=== PATIENT | male | born 1945 | race Caucasian/White ===

== ENCOUNTER → 2017-04-25 09:22 | Outpatient (CLI) | payer MEDICARE, SELFPAY ==
[2017-04-25 12:12] LABS: Absolute Neutrophil Count 1.6 X10^3/uL (2.0-7.7); Basophil% 2.7 % (0-1); Eosinophil# 0.37 X10^3/uL; Eosinophils% 9.8 % (0-5); Hematocrit 40.9 % (40-54); Lymphocyte % 26.5 % (19-41); Mean Corp Hgb Conc 31.8 g/gl (32-36); Mean Corpuscular Hgb 31.4 pg (27.0-32.0); Mean Corpuscular Volume 98.8 fL (80-94); Mean Platelet Vol. 11.8 fl (6.2-12.0); Monocyte# 0.68 X10^3/uL; Neutrophil # 1.61 X10^3/uL (2.7-7.7); Neutrophil % 42.7 % (47-70); Platelet Count 186 K/mm3 (150-450); RBC Distribution Width CV 14.2 % (11.6-14.6); RBC Distribution Width SD 49.5 fl (35.1-43.9); Red Blood Count 4.14 M/mm3 (4.6-6.2); White Blood Count 3.8 K/mm3 (4.4-11.0)
[2017-04-25 12:13] LABS: POSITIVE COUNT NO; POSITIVE DIFFERENTIAL NO; POSITIVE MORPHOLOGY NO
[2017-04-25 12:28] LABS: ALB/GLOB Ratio 0.9 RATIO (0.9-2.4); AST(SGOT) 18 U/L (15-37); Alanine Aminotransfer ALT/SGPT 23 U/L (16-61); Albumin, Serum 3.6 g/dL (3.2-5.0); Alkaline Phosphatase 60 U/L (45-117); Anion Gap 8 (5-15); BUN 17 mg/dL (7-18); BUN/Creat Ratio 17.8 RATIO (10-20); Calcium,Total 8.7 mg/dL (8.5-10.1); Chloride 107 mmol/L (98-107); Creatinine, Serum 0.96 mg/dL (0.70-1.30); EST Glomerular Filtration Rate 82 mL/min (>60); Est Glom Filt Rate - Afr Amer 100 mL/min (>60); Globulin 3.8 g/dL (2.2-4.2); Glucose 110 mg/dL (74-106); Protein, Total 7.4 g/dL (6.4-8.2); Sodium Level 141 mmol/L (136-145)
== END ==
PROVIDERS: Family Provider Family Medicine; PCP Family Medicine; Visit Provider Internal Medicine Rheumatology
DX: M06.09 Rheumatoid arthritis without rheumatoid factor, multiple sites (principal); M18.0 Bilateral primary osteoarthritis of first carpometacarpal joints; M21.40 Flat foot [pes planus] (acquired), unspecified foot; M79.7 Fibromyalgia; Z79.899 Other long term (current) drug therapy; Z85.46 Personal history of malignant neoplasm of prostate
CPT/HCPCS: 36415; 80053; 85025

== ENCOUNTER → 2017-07-23 08:14 | Outpatient (CLI) | payer MEDICARE, SELFPAY ==
--- NOTE | 2017-07-23 08:14 | DT_ITS ---
This patient was seen during an EMR downtime July 16, 2017 - July 23, 2017. This patient may have a combination of paper and electronic documentation or all paper documentation. All documentation is viewable within the e-chart portion of [facility] for each patient visit.
[2017-07-23 10:34] LABS: Absolute Lymphocyte Count 1.22 X10^3/ul (0.83-4.51); Absolute Neutrophil Count 2.7 X10^3/uL (2.0-7.7); Eosinophil# 0.28 X10^3/uL; Eosinophils% 5.6 % (0-5); Hematocrit 42.4 % (40-54); Hemoglobin 13.9 g/dl (13.0-16.5); Lymphocyte # 1.22 X10^3/ul (4.0); Lymphocyte % 24.3 % (19-41); Mean Corp Hgb Conc 32.8 g/gl (32-36); Mean Corpuscular Hgb 31.4 pg (27.0-32.0); Mean Corpuscular Volume 95.9 fL (80-94); Mean Platelet Vol. 11.1 fl (6.2-12.0); Monocyte# 0.68 X10^3/uL; Monocyte% 13.5 % (0-10); Neutrophil # 2.73 X10^3/uL (2.7-7.7); Neutrophil % 54.4 % (47-70); Platelet Count 278 K/mm3 (150-450); RBC Distribution Width SD 46.9 fl (35.1-43.9); Red Blood Count 4.42 M/mm3 (4.6-6.2)
[2017-07-23 10:35] LABS: POSITIVE COUNT NO; POSITIVE DIFFERENTIAL NO; POSITIVE MORPHOLOGY NO
[2017-07-23 10:47] LABS: ALB/GLOB Ratio 0.7 RATIO (0.9-2.4); AST(SGOT) 14 U/L (15-37); Alanine Aminotransfer ALT/SGPT 23 U/L (16-61); Albumin, Serum 3.3 g/dL (3.2-5.0); Alkaline Phosphatase 68 U/L (45-117); Anion Gap 7 (5-15); BUN 11 mg/dL (7-18); BUN/Creat Ratio 13.4 RATIO (10-20); Calcium,Total 8.8 mg/dL (8.5-10.1); Chloride 104 mmol/L (98-107); Creatinine, Serum 0.82 mg/dL (0.70-1.30); EST Glomerular Filtration Rate 98 mL/min (>60); Est Glom Filt Rate - Afr Amer 119 mL/min (>60); Globulin 4.5 g/dL (2.2-4.2); Glucose 97 mg/dL (74-106); Potassium 4.4 mmol/L (3.5-5.1); Protein, Total 7.8 g/dL (6.4-8.2); Sodium Level 138 mmol/L (136-145)
== END ==
PROVIDERS: Family Provider Family Medicine; PCP Family Medicine; Visit Provider Internal Medicine Rheumatology
DX: M06.09 Rheumatoid arthritis without rheumatoid factor, multiple sites (principal); Z79.899 Other long term (current) drug therapy; M79.7 Fibromyalgia; M18.0 Bilateral primary osteoarthritis of first carpometacarpal joints; M21.40 Flat foot [pes planus] (acquired), unspecified foot; Z85.46 Personal history of malignant neoplasm of prostate
CPT/HCPCS: 36415; 80053; 85025

== ENCOUNTER → 2017-10-19 14:07 | Outpatient (CLI) | payer MEDICARE, SELFPAY ==
[2017-10-19 15:59] LABS: Absolute Lymphocyte Count 0.94 X10^3/ul (0.83-4.51); Absolute Neutrophil Count 4.3 X10^3/uL (2.0-7.7); Basophil# 0.06 X10^3/uL; Eosinophil# 0.18 X10^3/uL; Eosinophils% 2.9 % (0-5); Hematocrit 42.5 % (40-54); Hemoglobin 13.8 g/dl (13.0-16.5); Lymphocyte # 0.94 X10^3/ul (4.0); Mean Corp Hgb Conc 32.5 g/gl (32-36); Mean Corpuscular Hgb 31.3 pg (27.0-32.0); Mean Corpuscular Volume 96.4 fL (80-94); Monocyte# 0.76 X10^3/uL; Monocyte% 12.1 % (0-10); Neutrophil # 4.33 X10^3/uL (2.7-7.7); Platelet Count 203 K/mm3 (150-450); RBC Distribution Width CV 14.8 % (11.6-14.6); RBC Distribution Width SD 50.2 fl (35.1-43.9); Red Blood Count 4.41 M/mm3 (4.6-6.2); White Blood Count 6.3 K/mm3 (4.4-11.0)
[2017-10-19 16:02] LABS: POSITIVE COUNT NO; POSITIVE DIFFERENTIAL NO; POSITIVE MORPHOLOGY NO
[2017-10-19 16:11] LABS: ALB/GLOB Ratio 0.9 RATIO (0.9-2.4); AST(SGOT) 22 U/L (15-37); Alanine Aminotransfer ALT/SGPT 28 U/L (16-61); Albumin, Serum 3.6 g/dL (3.2-5.0); Alkaline Phosphatase 44 U/L (45-117); Anion Gap 9 (5-15); BUN 20 mg/dL (7-18); BUN/Creat Ratio 18.3 RATIO (10-20); Calcium,Total 9.2 mg/dL (8.5-10.1); Chloride 107 mmol/L (98-107); Creatinine, Serum 1.09 mg/dL (0.70-1.30); EST Glomerular Filtration Rate 71 mL/min (>60); Est Glom Filt Rate - Afr Amer 85 mL/min (>60); Globulin 4.1 g/dL (2.2-4.2); Glucose 133 mg/dL (74-106); Potassium 4.3 mmol/L (3.5-5.1); Protein, Total 7.7 g/dL (6.4-8.2); Sodium Level 142 mmol/L (136-145)
== END ==
PROVIDERS: Family Provider Family Medicine; PCP Family Medicine; Visit Provider Internal Medicine Rheumatology
DX: M06.09 Rheumatoid arthritis without rheumatoid factor, multiple sites (principal); M18.0 Bilateral primary osteoarthritis of first carpometacarpal joints; M21.40 Flat foot [pes planus] (acquired), unspecified foot; M79.7 Fibromyalgia; Z79.899 Other long term (current) drug therapy; Z85.46 Personal history of malignant neoplasm of prostate; Z92.21 Personal history of antineoplastic chemotherapy; Z92.3 Personal history of irradiation
CPT/HCPCS: 36415; 80053; 85025

== ENCOUNTER → 2017-10-22 07:34 | Outpatient (CLI) | payer MEDICARE, SELFPAY ==
[2017-10-24 20:08] LABS: Red Blood Cell Count Test/G6PD 4.44 x10E6/uL (4.14-5.80)
[2017-10-25 08:24] LABS: G6PD Quant Test 311 (146-376)
== END ==
PROVIDERS: Family Provider Family Medicine; PCP Family Medicine; Visit Provider Internal Medicine Rheumatology
DX: M06.09 Rheumatoid arthritis without rheumatoid factor, multiple sites (principal); M79.7 Fibromyalgia; M18.0 Bilateral primary osteoarthritis of first carpometacarpal joints; M21.40 Flat foot [pes planus] (acquired), unspecified foot; Z79.899 Other long term (current) drug therapy; Z85.46 Personal history of malignant neoplasm of prostate
CPT/HCPCS: 36415; 82955

== ENCOUNTER → 2017-12-10 09:01 | Outpatient (CLI) | payer MEDICARE, SELFPAY ==
[2017-12-10 10:05] LABS: Absolute Lymphocyte Count 1.22 X10^3/ul (0.83-4.51); Absolute Neutrophil Count 3.4 X10^3/uL (2.0-7.7); Basophil# 0.08 X10^3/uL; Basophil% 1.4 % (0-1); Eosinophil# 0.28 X10^3/uL; Eosinophils% 4.9 % (0-5); Hematocrit 42.6 % (40-54); Hemoglobin 13.9 g/dl (13.0-16.5); Lymphocyte # 1.22 X10^3/ul (4.0); Lymphocyte % 21.3 % (19-41); Mean Corp Hgb Conc 32.6 g/gl (32-36); Mean Corpuscular Volume 98.2 fL (80-94); Mean Platelet Vol. 11.7 fl (6.2-12.0); Monocyte# 0.76 X10^3/uL; Monocyte% 13.2 % (0-10); Neutrophil # 3.39 X10^3/uL (2.7-7.7); Platelet Count 202 K/mm3 (150-450); RBC Distribution Width CV 14.3 % (11.6-14.6); RBC Distribution Width SD 49.9 fl (35.1-43.9); Red Blood Count 4.34 M/mm3 (4.6-6.2); White Blood Count 5.7 K/mm3 (4.4-11.0)
[2017-12-10 10:06] LABS: POSITIVE COUNT NO; POSITIVE DIFFERENTIAL NO; POSITIVE MORPHOLOGY NO
[2017-12-10 10:14] LABS: ALB/GLOB Ratio 0.7 RATIO (0.9-2.4); AST(SGOT) 13 U/L (15-37); Alanine Aminotransfer ALT/SGPT 24 U/L (16-61); Albumin, Serum 3.4 g/dL (3.2-5.0); Alkaline Phosphatase 45 U/L (45-117); Anion Gap 10 (5-15); BUN 17 mg/dL (7-18); BUN/Creat Ratio 17.3 RATIO (10-20); Calcium,Total 9.5 mg/dL (8.5-10.1); Chloride 104 mmol/L (98-107); Creatinine, Serum 0.98 mg/dL (0.70-1.30); EST Glomerular Filtration Rate 80 mL/min (>60); Est Glom Filt Rate - Afr Amer 96 mL/min (>60); Globulin 4.7 g/dL (2.2-4.2); Glucose 130 mg/dL (74-106); Potassium 4.2 mmol/L (3.5-5.1); Protein, Total 8.1 g/dL (6.4-8.2); Sodium Level 141 mmol/L (136-145)
== END ==
PROVIDERS: Family Provider Family Medicine; PCP Family Medicine; Referring Provider Internal Medicine Rheumatology; Visit Provider Internal Medicine Rheumatology
DX: M06.09 Rheumatoid arthritis without rheumatoid factor, multiple sites (principal); M79.7 Fibromyalgia; M18.0 Bilateral primary osteoarthritis of first carpometacarpal joints; M21.40 Flat foot [pes planus] (acquired), unspecified foot; Z79.899 Other long term (current) drug therapy; Z85.46 Personal history of malignant neoplasm of prostate
CPT/HCPCS: 36415; 80053; 85025

== ENCOUNTER → 2018-03-05 09:09 | Outpatient (CLI) | payer MEDICARE, SELFPAY ==
[2018-03-05 10:30] LABS: Absolute Lymphocyte Count 1.24 X10^3/ul (0.83-4.51); Basophil# 0.05 X10^3/uL; Basophil% 1.2 % (0-1); Eosinophil# 0.13 X10^3/uL; Eosinophils% 3.1 % (0-5); Hematocrit 41.2 % (40-54); Hemoglobin 12.8 g/dl (13.0-16.5); Lymphocyte # 1.24 X10^3/ul (4.0); Lymphocyte % 29.7 % (19-41); Mean Corp Hgb Conc 31.1 g/gl (32-36); Mean Corpuscular Hgb 31.2 pg (27.0-32.0); Mean Corpuscular Volume 100.5 fL (80-94); Mean Platelet Vol. 11.8 fl (6.2-12.0); Monocyte# 0.72 X10^3/uL; Monocyte% 17.2 % (0-10); Neutrophil # 2.03 X10^3/uL (2.7-7.7); Neutrophil % 48.6 % (47-70); Platelet Count 183 K/mm3 (150-450); RBC Distribution Width CV 14.3 % (11.6-14.6); RBC Distribution Width SD 51.9 fl (35.1-43.9); White Blood Count 4.2 K/mm3 (4.4-11.0)
[2018-03-05 10:32] LABS: POSITIVE COUNT NO; POSITIVE DIFFERENTIAL NO; POSITIVE MORPHOLOGY NO
[2018-03-05 10:36] LABS: ALB/GLOB Ratio 0.9 RATIO (0.9-2.4); AST(SGOT) 19 U/L (15-37); Alanine Aminotransfer ALT/SGPT 25 U/L (16-61); Albumin, Serum 3.6 g/dL (3.2-5.0); Alkaline Phosphatase 41 U/L (45-117); Anion Gap 6 (5-15); BUN 16 mg/dL (7-18); BUN/Creat Ratio 16.3 RATIO (10-20); Calcium,Total 8.3 mg/dL (8.5-10.1); Chloride 107 mmol/L (98-107); Creatinine, Serum 0.98 mg/dL (0.70-1.30); EST Glomerular Filtration Rate 80 mL/min (>60); Est Glom Filt Rate - Afr Amer 96 mL/min (>60); Glucose 110 mg/dL (74-106); Potassium 4.3 mmol/L (3.5-5.1); Protein, Total 7.6 g/dL (6.4-8.2); Sodium Level 139 mmol/L (136-145)
--- OUTSIDE RECORDS SUMMARY | 2018-05-07 09:34 | XMS RPT_ITS ---
:1945 Author Organization [facility] Care Team Providers Name Role Phone COOPER, TRISTAN Wellington Referring Unavailable MASCI, TRISTAN A Referring Unavailable MASCI, TRISTAN A Referring Unavailable MASCI, TRISTAN A Referring Unavailable MASCI, TRISTAN A Referring Unavailable MASCI, TRISTAN A Referring Unavailable MASCI, TRISTAN A Referring Unavailable MASCI, TRISTAN Wellington Attending Unavailable MASCI, TRISTAN A Referring Unavailable MASCI, TRISTAN A Referring Unavailable MASCI, TRISTAN Wellington Referring Unavailable JOE ARECHIGA (ARTHUR) Attending Unavailable PRIMITIVOWINSTON A Referring Unavailable MASCI, TRISTAN A Referring Unavailable PRIMITIVO, WINSTON A Referring Unavailable PRIMITIVO, WINSTON A Attending Unavailable PRIMITIVO, WINSTON A Referring Unavailable MASCI, TRISTAN A Referring Unavailable MASCI, TRISTAN A Attending Unavailable MASCI, TRISTAN A Referring Unavailable MASCI, TRISTAN A Referring Unavailable MASCI, TRISTAN A Referring Unavailable MASCI, TRISTAN A Referring Unavailable MASCI, TRISTAN A Referring Unavailable MASCI, TRISTAN A Attending Unavailable MASCI, TRISTAN A Referring Unavailable MASCI, TRISTAN A Referring Unavailable MASCI, TRISTAN A Referring Unavailable MASCI, TRISTAN A Referring Unavailable MASCI, TRISTAN A Referring Unavailable PRIMITIVO, WINSTON A Referring Unavailable Vellanki, Dina Attending Unavailable Vellanki, Dina Referring Unavailable [facility] Unavailable Vellanki, Dina Attending Unavailable [facility] Unavailable Vellanki, Dina Attending Unavailable Vellanki, Dina Referring Unavailable [facility] Unavailable Vellanki, Dina Attending Unavailable Vellanki, Dina Referring Unavailable [facility] Unavailable Vellanki, Dina Attending Unavailable Vellanki, Dina Referring Unavailable [facility] Unavailable Vellanki, Dina Attending Unavailable Vellanki, Dina Referring Unavailable [facility] Unavailable PROBLEMS PROBLEMS DATE TYPE CONDITION / CODE ATTENDING STATUS SOURCE 12/10/2017 Unknown M06.09 - Rheumatoid Sahil Dina Active [facility] arthritis without Community rheumatoid factor, [facility] multiple sites / Repository M06.09(ICD-10) 12/10/2017 Unknown Z79.899 - Other long Jonnathanlanleena Dina Active [facility] term (current) drug Community therapy / Hospital Z79.899(ICD-10) Repository 12/10/2017 Unknown M79.7 - Fibromyalgia Velscott Dina Active [place] / M79.7(ICD-10) [facility] Repository 12/10/2017 Unknown M18.0 - Bilateral Vellanleena Dina Active [facility] primary Community osteoarthritis of Hospital first carpometacarpal Repository joints / M18.0(ICD-10) 12/10/2017 Unknown M21.40 - Flat foot Sahil Dina Active [facility] [pes planus] Community (acquired), Hospital unspecified foot / Repository M21.40(ICD-10) 12/10/2017 Unknown Z85.46 - Personal Vellanleena Dina Active [facility] history of malignant Community neoplasm of prostate Hospital / Z85.46(ICD-10) Repository 02/20/2017 Active Impaired fasting Active [place] glucose / Clinic Main R73.01(ICD-10) [place] Repository 02/03/2016 Active Mixed hyperlipidemia NA Active [facility] [place] / E78.2(ICD-10) Clinic Main [place] Repository 03/14/2017 Active Unknown / NA Active [facility] UNK(Unknown) Clinic Main [place] Repository 02/20/2017 Active Malignant neoplasm of NA Active [place] prostate / Clinic Main C61(ICD-10) [place] Repository PROCEDURES PROCEDURES No Procedure Records FoundRESULTS RESULTS URINALYSIS WITH Collected: 03/06/2018 Status: F Source: [facility] 7:47 AM [facility] REPOSITORY TYPE CODE TESTS RESULT OUT OF REFERENCE UNITS RANGE LAB UCOL Yellow Color Yellow LAB [facility] Clear Clarity Clear LAB UGLUC Negative mg/dL Glucose, Urine Negative LAB UBIL Negative Bilirubin, Urine Negative LAB UKET Negative Ketones, Urine Negative LAB USPG 1.005-1.030 Specific [place], Ur 1.008 LAB UHGB Negative Hemoglobin/Blood, Negative Ur LAB UPH 4.5-8.0 pH 7.0 LAB UPROT Negative mg/dL Protein, Urine Negative LAB UUROB Normal Urobilinogen Normal LAB UNITR Negative Nitrites Negative LAB ULKEST Negative Leukest Negative LAB UCOM Comments SEE COMMENT Result Comment: N/A LAB UMCOM Urine SEE Jose Comment COMMENT Result Comment: N/A LAB UWBC 0-5 /HPF WBC 0-5 LAB URBC 0-3 /HPF RBC 0-3 Performed By: #### UAWMIC #### [facility] [address], [place] [address] HEMOGLOBIN A1C Collected: 03/06/2018 Status: F Source: [place] 7:46 AM [facility] REPOSITORY TYPE CODE TESTS RESULT OUT OF REFERENCE UNITS RANGE LAB HGBA1C 4.3-5.6 % Hemoglobin A1c 5.4 Result Comment: [place] Diabetes Association guidelines indicate that patients with HgbA1c in the range 5.7-6.4% are at increased risk for development of diabetes, and intervention by lifestyle modification may be beneficial. HgbA1c greater or equal to 6.5% is considered diagnostic of diabetes. LAB HBA0 mg/dL Est. Average Glucose 108 Result Comment: eAG: (Estimated average glucose) is a calculated value from HgbA1c and is group sales representative of the average blood glucose level in the last 2-3 month period. Performed By: #### HBA1C, LIPB #### [facility] [address], [place] [address] LIPID PANEL, BASIC Collected: 03/06/2018 Status: F Source: [place] 7:46 AM [facility] REPOSITORY TYPE CODE TESTS RESULT OUT OF REFERENCE UNITS RANGE LAB CHOL <200 mg/dL Cholesterol 174 Result Comment: <200 mg/dL, Desirable 200-239 mg/dL, Borderline high >239 mg/dL, High LAB TRIGLY <150 mg/dL Triglyceride 94 Result Comment: <150 mg/dL, Normal 150-199 mg/dL, Borderline high 200-499 mg/dL, High >499 mg/dL, Very high LAB HDL >39 mg/dL HDL-Cholesterol 57 Result Comment: 40-59 mg/dL, Acceptable >59 mg/dL, High: Negative risk factor for coronary heart disease <40 mg/dL, Low: Positive risk factor for coronary heart disease LAB LDL <100 mg/dL LDL-Cholesterol 98 Result Comment: <100 mg/dL, Optimal 100-129 mg/dL, Near optimal/above optimal 130-159 mg/dL, Borderline high 160-189 mg/dL, High >189 mg/dL, Very high Secondary prevention optimal LDL Cholesterol levels are recommended to be < 70 mg/dL LAB NONHDL <130 mg/dL Non HDL Cholesterol 117 Result Comment: <130 mg/dL, Optimal 130-159 mg/dL, Near optimal/above optimal 160-189 mg/dL, Borderline high 190-219 mg/dL, High >219 mg/dL, Very high Secondary prevention optimal non HDL Cholesterol levels are recommended to be < 100 mg/dL LAB FT hrs Fasting Time 12 LAB VLDL <30 mg/dL VLDL Cholesterol 19 LAB TCHDL <5.10 TC:HDL Ratio 3.05 LAB LDLHDL <2.54 LDL:HDL Ratio 1.72 Result Comment: Reference: 1. National Cholesterol Education Program ATP III Guideline At-A-Glance Quick Desk Reference: National Heart, Lung, and Blood [place]. National Institutes of Health. 2001: NIH Publication No. 01-3305. 2. An International Atherosclerosis Society position paper: global recommendations for the management of dyslipidemia: executive summary, Atherosclerosis. 2014: 232(2):410-413. Performed By: #### HBA1C, LIPB #### [facility] [address] [place] [address] COMP METABOLIC PANEL Collected: 03/06/2018 Status: F Source: [place] 7:45 AM [facility] REPOSITORY TYPE CODE TESTS RESULT OUT OF REFERENCE UNITS RANGE LAB TP 6.3-8.0 g/dL Protein, Total 7.0 LAB ALB 3.9-4.9 g/dL Albumin 4.0 LAB CA 8.5-10.2 mg/dL Calcium, Total 9.2 LAB TBIL 0.2-1.3 mg/dL Bilirubin, Total 0.4 LAB ALKP 38-113 U/L Alkaline Low Phosphatase 37 LAB AST 14-40 U/L AST 18 LAB GLU 74-99 mg/dL Glucose High 118 LAB BUN 9-24 mg/dL BUN 14 LAB CRET 0.73-1.22 mg/dL Creatinine 0.82 LAB NA 136-144 mmol/L Sodium 137 LAB K 3.7-5.1 mmol/L Potassium 4.3 LAB CL 97-105 mmol/L Chloride High 106 LAB CO2 22-30 mmol/L CO2 24 LAB AGAP 9-18 mmol/L Anion Gap Low 7 LAB ALT 10-54 U/L ALT 13 LAB GFRAA eGFR- >60 Amer. LAB GFRNAA . eGFR-All Other Races >60 Result Comment: eGFR (Estimated GFR) Units of measure: mL/min/1.73 meters squared eGFR is derived from the reexpressed MDRD Study equation using the following parameters: serum creatinine, age, gender and race. The creatinine assay has been calibrated to be traceable to IDMS. An eGFR <60 mL/min/1.73m2 for >3 months is consistent with chronic kidney disease. Refer to KDOQI guidelines for clinical interpretation. In patients with unstable renal function, e.g. those with acute kidney injury, the eGFR may not accurately reflect actual GFR. CBC W/DIFF, AUTOMATED Collected: 03/05/2018 Status: F Source: [place] 9:15 AM [facility] REPOSITORY TYPE CODE TESTS RESULT OUT OF RANGE REFERENCE UNITS LAB L100.1000 4.4-11.0 K/mm3 Low WBC 4.2 LAB L100.1200 4.6-6.2 M/mm3 Low RBC 4.10 LAB L100.1300 13.0-16.5 g/dl Low HGB 12.8 LAB L100.1400 40-54 % Normal HCT 41.2 LAB L100.1500 80-94 fL High MCV 100.5 LAB L100.1600 27.0-32.0 pg Normal MCH 31.2 LAB L100.1700 32-36 g/gl Low MCHC 31.1 LAB L100.1810 11.6-14.6 % Normal RDW CV 14.3 LAB L100.1820 35.1-43.9 fl High RDW SD 51.9 LAB L100.1900 150-450 K/mm3 Normal PLT 183 LAB L100.2000 6.2-12.0 fl Normal MPV 11.8 LAB L100.2100 47-70 % Normal NEUT% 48.6 LAB L100.2200 19-41 % Normal LY% 29.7 LAB L100.2300 0-10 % High MONO% 17.2 LAB L100.2400 0-5 % Normal EO% 3.1 LAB L100.2500 0-1 % High BASO% 1.2 LAB L100.2550 0.0-0.9 % Normal IM GRAN % 0.200 Result Comment: IG% - Immature Granulocytes (promyelocytes, myelocytes and metamyelocytes) > 1% indicates that a LEFT SHIFT is Present. LAB L100.2620 2.0-7.7 X10 3/uL Normal Absolute Neut 2.0 LAB L100.2720 0.83-4.51 X10 3/ul Normal Absolute Lymph 1.24 Performed By: #### L100.0100 #### [facility] [address] [place], [address] COMPREHENSIVE METABOLIC Collected: 03/05/2018 Status: F Source: [facility] 9:15 AM [facility] REPOSITORY TYPE CODE TESTS RESULT OUT OF RANGE REFERENCE UNITS LAB L501.0100 74-106 mg/dL High GLU 110 Result Comment: Fasting Glucose result from 100 to 125 mg/dL suggests IMPAIRED HOMEOSTASIS per A.D.A. criteria. Please note revised GLUCOSE reference range effective 2017. LAB L501.1000 7-18 mg/dL Normal BUN 16 LAB L501.1100 0.70-1.30 mg/dL Normal CREAT,SERUM 0.98 Result Comment: The validity of the calculated GFR AND GFRAA in patients over 70 years has not been determined. Clinical correlation is essential. LAB L501.1110 >60 mL/min Normal EST GFR 80 Result Comment: Non- GFR Calc LAB L501.1115 >60 mL/min Normal EST GFR - AA 96 Result Comment: GFR Calc LAB L501.1300 10-20 RATIO Normal BUN/CRE 16.3 LAB L501.1500 6.4-8.2 g/dL T Normal PROT 7.6 LAB L501.1800 3.2-5.0 g/dL Normal ALB 3.6 LAB L501.1950 2.2-4.2 g/dL Normal GLOB 4.0 LAB L501.2000 0.9-2.4 RATIO Normal A/G 0.9 LAB L501.2200 8.5-10.1 mg/dL Low CA 8.3 LAB L501.4100 15-37 U/L Normal AST 19 Result Comment: Slight Hemolysis, Result may be falsely increased. LAB L501.4305 45-117 U/L Low ALK P 41 LAB L501.4405 16-61 U/L Normal ALT 25 LAB L501.4600 0.20-1.00 mg/dL Normal T BILI 0.40 LAB L501.5300 136-145 mmol/L Normal NA 139 LAB L501.5600 3.5-5.1 mmol/L Normal K 4.3 Result Comment: Slight Hemolysis, Result may be falsely increased. LAB L501.5900 98-107 mmol/L Normal CL 107 LAB L501.6100 21.0-32.0 mmol/L Normal CO2 26.0 LAB L501.6200 5-15 Normal 6 GAP Performed By: #### L500.4050 #### [facility] [address] [place], [address] CBC W/DIFF, AUTOMATED Collected: 12/10/2017 Status: F Source: [place] 9:07 AM [facility] REPOSITORY TYPE CODE TESTS RESULT OUT OF RANGE REFERENCE UNITS LAB L100.1000 4.4-11.0 K/mm3 Normal WBC 5.7 LAB L100.1200 4.6-6.2 M/mm3 Low RBC 4.34 LAB L100.1300 13.0-16.5 g/dl Normal HGB 13.9 LAB L100.1400 40-54 % Normal HCT 42.6 LAB L100.1500 80-94 fL High MCV 98.2 LAB L100.1600 27.0-32.0 pg Normal MCH 32.0 LAB L100.1700 32-36 g/gl Normal MCHC 32.6 LAB L100.1810 11.6-14.6 % Normal RDW CV 14.3 LAB L100.1820 35.1-43.9 fl High RDW SD 49.9 LAB L100.1900 150-450 K/mm3 Normal PLT 202 LAB L100.2000 6.2-12.0 fl Normal MPV 11.7 LAB L100.2100 47-70 % Normal NEUT% 59.0 LAB L100.2200 19-41 % Normal LY% 21.3 LAB L100.2300 0-10 % High MONO% 13.2 LAB L100.2400 0-5 % Normal EO% 4.9 LAB L100.2500 0-1 % High BASO% 1.4 LAB L100.2550 0.0-0.9 % Normal IM GRAN % 0.200 Result Comment: IG% - Immature Granulocytes (promyelocytes, myelocytes and metamyelocytes) > 1% indicates that a LEFT SHIFT is Present. LAB L100.2620 2.0-7.7 X10 3/uL Normal Absolute Neut 3.4 LAB L100.2720 0.83-4.51 X10 3/ul Normal Absolute Lymph 1.22 Performed By: #### L100.0100 #### [facility] [address] [place], [address] COMPREHENSIVE METABOLIC Collected: 12/10/2017 Status: F Source: [facility] 9:07 AM [facility] REPOSITORY TYPE CODE TESTS RESULT OUT OF RANGE REFERENCE UNITS LAB L501.0100 74-106 mg/dL High GLU 130 Result Comment: Fasting Glucose result greater than or equal to 126 mg/dL suggests DIABETES MELLITUS per A.D.A. criteria. Please note revised GLUCOSE reference range effective 2017. LAB L501.1000 7-18 mg/dL Normal BUN 17 LAB L501.1100 0.70-1.30 mg/dL Normal CREAT,SERUM 0.98 Result Comment: The validity of the calculated GFR AND GFRAA in patients over 70 years has not been determined. Clinical correlation is essential. LAB L501.1110 >60 mL/min Normal EST GFR 80 Result Comment: Non- GFR Calc LAB L501.1115 >60 mL/min Normal EST GFR - AA 96 Result Comment: GFR Calc LAB L501.1300 10-20 RATIO Normal BUN/CRE 17.3 LAB L501.1500 6.4-8.2 g/dL T Normal PROT 8.1 LAB L501.1800 3.2-5.0 g/dL Normal ALB 3.4 LAB L501.1950 2.2-4.2 g/dL High GLOB 4.7 LAB L501.2000 0.9-2.4 RATIO Low A/G 0.7 LAB L501.2200 8.5-10.1 mg/dL CA Normal 9.5 LAB L501.4100 15-37 U/L Low AST 13 LAB L501.4305 45-117 U/L Normal ALK P 45 LAB L501.4405 16-61 U/L Normal ALT 24 LAB L501.4600 0.20-1.00 mg/dL T Normal BILI 0.50 LAB L501.5300 136-145 mmol/L NA Normal 141 LAB L501.5600 3.5-5.1 mmol/L K Normal 4.2 LAB L501.5900 98-107 mmol/L CL Normal 104 LAB L501.6100 21.0-32.0 mmol/L Normal CO2 27.0 LAB L501.6200 5-15 Normal GAP 10 Performed By: #### L500.4050 #### [facility] [address] [facility] [place], [address] PROGRESS Observed: 11/21/2017 Status: COMPLETED Source: [place] 10:51 AM [facility] REPOSITORY O ID: [id number] Author: Tristan Santos Service: (none) Author Type: Physician Type: Progress Notes Filed: 11/21/2017 11:19 AM Note Text: Diagnosis: 1) Prostate cancer HPI: The patient is a 72 yo male who had an abnormal HANNAH done on a routine PE by his PCP in 2008. Was referred to a urologist who performed biopsy. Pathology significant for Dimitris score 5+4 on the right and 3+3 on the left. PSA was 5.5 ng/ml. He was referred to [facility] and enrolled in the [facility] (31298; PUNCH) trial. Received 6 cycles neoadjuvant docetaxel along with GnRH therapy. Completed the 6 cycles with dose reduction after first cycle due to a flare of FM pain in legs. Underwent robotic radical prostatectomy on 06/29/2009. Pathology revealed Henderson 3+5 adenocarcinoma involving 8% of the gland b/l; multifocal extraprostatic extension and seminal vesical involvement. Margins were negative and nodes negative (pT3bN0). Had PSA<0.01 12/2009-09/2010. Most recent evaluation at [facility] prior to transfer here 0.04 ng/ml. CT and bone scan indicated no radiographic evidence metastatic disease. Then went on to complete salvage RT 06/29/2014. PSA showed an increased just prior to establishing care here. Current therapy: 1) GnRH injection (Zoladex). Presents for ongoing oncologic management. Interim history: Was changed to Lupron due to formulary change last fall. Didn't tolerate well--lethargy and mood change. Rotated back to Zoladex monthly in 02/2017. No dysuria, frequency. Rare nocturia. Has occasional stress incontinence. He offers no complaints today. When conducting review of systems he said that his fibromyalgia pain hasn't been as bad the last couple months but his arthritis pain has flared. Mostly this affects the hands. His energy level is doing well. He has hot flashes particularly in the evenings but he is not woken by hot flashes during the night. No breast tenderness. His appetite is normal and he does his best to watch his calorie intake but he has put on a little weight. PMH, medications and allergies as below personally reviewed by me today. Any changes documented in appropriate section. ROS: Constitutional: Denies episodes of fever and night sweats. Neuro: Denies JIMENES, vertigo and imbalance. No symptoms of neuropathy. HEENT: No recent change in voice, vision or hearing. Resp: Denies cough, wheeze and hemoptysis. No shortness of breath at rest. No MEYER. CVS: Denies exertional chest pain, PND, orthopnea and LE edema. GI: Denies reflux, n/v, change in bowel habits and abdominal pain. No symptoms of stomatitis. : See above. Endo: See above. Derm: No rash. MS: See above. Heme: No unusual bleeding or bruising. Psych: Normal mood. PHYSICAL EXAM: Vitals: Blood pressure 119/71, pulse 75, temperature 36.6 ?C (97.9 ?F), temperature source Temporal Artery, weight 112.3 kg (247 lb 8 oz). Well-appearing and in no acute distress. EYES: Sclerae are anicteric bilaterally. NECK: Supple. No enlargement of thyroid. LYMPHATIC: There is no palpable cervical, supraclavicular or axillary adenopathy. RESPIRATORY: Inspiratory breath sounds are of normal intensity in all edouard. No rales, wheezes or rhonchi. CARDIOVASCULAR: Rhythm is regular. Normal intensity S1/S2. There is no gallop or murmur. ABDOMEN: The abdomen is nondistended. There is no organomegaly. No tenderness. Extremities: Free of edema. SKIN: No jaundice or rash. No petechiae. NEUROLOGIC: supervisor fitting II-XII are grossly intact. No focal motor weakness. ASSESSMENT/PLAN: 1) High risk prostate cancer. Rising PSA following neoadjuvant ADT/Taxotere on clinical trial at [facility]. s/p salvage radiation. No concerning symptoms or exam findings. -Tolerating and responding well to GnRH therapy. -May be good candidate for for Xtandi or apalutamide if has biochemical failure without radiographic evidence of disease. Plan: -Monitor PSA every 3 months. -Monthly Zoladex. -Prolia q 6 months. -Flu shot administered today. Tristan Santos DO CNOVSP Observed: 11/21/2017 Status: COMPLETED Source: [place] 10:30 AM [facility] REPOSITORY Visit (SP) Office ([place]) LORNA MARTINS ([id number]) 1945 M [facility] Date Time Provider Department 11/21/17 10:30 AM TRISTAN SANTOS During your visit today, we recorded the following information about you: Temperature Pulse Blood pressure Weight 97.9 degrees 75/minute 119/71 112.3 kg Nayeli Bills LPN 11/21/2017 11:08 AM Signed Est patient. Three month office visit. Discuss recent labs. Zoladex today. Influenza Vaccine Documentation: ? Patient is identified by name and date of : Yes ? Patient is older than 6 months of age: Yes ? Patient denies a severe allergy to any vaccine component or to a previous dose of influenza vaccine: Yes FOR EGG ALLERGY CONCERNS, REFER TO PROVIDER. ? Denies allergy to gelatin, formaldehyde, thimerosol :Yes ? Patient is afebrile and not moderately or severely ill: Yes ? Does the patient have a history of Guillain ?Pony Syndrome (a severe paralytic illness): No ? Denies bone marrow transplant prior 6 months or solid organ transplant prior 3 months: Yes ? Denies a history of fainting after a prior injection or medical procedure? Yes If patient has fainted in the past, the CDC recommends sitting or lying down for 15 minutes after the vaccination. ? VIS sheet provided: Yes ? See Immunization Form in [facility] for details of immunizations administered today. If patient reports dizziness, vision changes or ringing in the ears post vaccination ? please have patient sit or lie down for 15 minutes. Influenza vaccine injection administered right deltoid, tolerated well, no immediate adverse reactions noted. Zoladex injection administered RLQ, tolerated well, no immediate adverse reactions noted. Nayeli Santos DO 11/21/2017 11:19 AM Signed Diagnosis: 1) Prostate cancer HPI: The patient is a 72 yo male who had an abnormal HANNAH done on a routine PE by his PCP in 2008. Was referred to a urologist who performed biopsy. Pathology significant for Dimitris score 5+4 on the right and 3+3 on the left. PSA was 5.5 ng/ml. He was referred to [facility] and enrolled in the [facility] ([id number]; PUNCH) trial. Received 6 cycles neoadjuvant docetaxel along with GnRH therapy. Completed the 6 cycles with dose reduction after first cycle due to a flare of FM pain in legs. Underwent robotic radical prostatectomy on 06/29/2009. Pathology revealed Dimitris 3+5 adenocarcinoma involving 8% of the gland b/l; multifocal extraprostatic extension and seminal vesical involvement. Margins were negative and nodes negative (pT3bN0). Had PSA<0.01 12/2009-09/2010. Most recent evaluation at [facility] prior to transfer here 0.04 ng/ml. CT and bone scan indicated no radiographic evidence metastatic disease. Then went on to complete salvage RT 06/29/2014. PSA showed an increased just prior to establishing care here. Current therapy: 1) GnRH injection (Zoladex). Presents for ongoing oncologic management. Interim history: Was changed to Lupron due to formulary change last fall. Didn't tolerate well--lethargy and mood change. Rotated back to Zoladex monthly in 02/2017. No dysuria, frequency. Rare nocturia. Has occasional stress incontinence. He offers no complaints today. When conducting review of systems he said that his fibromyalgia pain hasn't been as bad the last couple months but his arthritis pain has flared. Mostly this affects the hands. His energy level is doing well. He has hot flashes particularly in the evenings but he is not woken by hot flashes during the night. No breast tenderness. His appetite is normal and he does his best to watch his calorie intake but he has put on a little weight. PMH, medications and allergies as below personally reviewed by me today. Any changes documented in appropriate section. ROS: Constitutional: Denies episodes of fever and night sweats. Neuro: Denies JIMENES, vertigo and imbalance. No symptoms of neuropathy. HEENT: No recent change in voice, vision or hearing. Resp: Denies cough, wheeze and hemoptysis. No shortness of breath at rest. No MEYER. CVS: Denies exertional chest pain, PND, orthopnea and LE edema. GI: Denies reflux, n/v, change in bowel habits and abdominal pain. No symptoms of stomatitis. : See above. Endo: See above. Derm: No rash. MS: See above. Heme: No unusual bleeding or bruising. Psych: Normal mood. PHYSICAL EXAM: Vitals: Blood pressure 119/71, pulse 75, temperature 36.6 ?C (97.9 ?F), temperature source Temporal Artery, weight 112.3 kg (247 lb 8 oz). Well-appearing and in no acute distress. EYES: Sclerae are anicteric bilaterally. NECK: Supple. No enlargement of thyroid. LYMPHATIC: There is no palpable cervical, supraclavicular or axillary adenopathy. RESPIRATORY: Inspiratory breath sounds are of normal intensity in all edouard. No rales, wheezes or rhonchi. CARDIOVASCULAR: Rhythm is regular. Normal intensity S1/S2. There is no gallop or murmur. ABDOMEN: The abdomen is nondistended. There is no organomegaly. No tenderness. Extremities: Free of edema. SKIN: No jaundice or rash. No petechiae. NEUROLOGIC: supervisor fitting II-XII are grossly intact. No focal motor weakness. ASSESSMENT/PLAN: 1) High risk prostate cancer. Rising PSA following neoadjuvant ADT/Taxotere on clinical trial at [facility]. s/p salvage radiation. No concerning symptoms or exam findings. -Tolerating and responding well to GnRH therapy. -May be good candidate for for Xtandi or apalutamide if has biochemical failure without radiographic evidence of disease. Plan: -Monitor PSA every 3 months. -Monthly Zoladex. -Prolia q 6 months. -Flu shot administered today. Tristan Santos DO Referring Provider: TRISTAN SANTOS [[id number]] Allergies As of Date: 11/21/2017 Noted Allergy Reaction PENICILLINS 08/17/2006 4 - Hives Date Reviewed: 11/21/2017 Reviewed by: Nayeli Bills LPN - Fully Assessed Reason for Visit: Established Patient [175] Primary Visit Diagnosis:Malignant neoplasm of prostate (HCC) [C61] Other Visit Diagnosis:Need for vaccination [Z23] Order(s):[] influenza vaccine 180 mcg (Patients 65 years and older) (PF) (FLUZONE HIGH DOSE )Disp: Rfl: TREATMENT PARAMETER-NOT NEEDED [[id number]] Order #: [id number]: 1 HEMONC NURSING COMMUNICATION [[id number]] Order #: [id number]: 1 STANDING HEMONC NURSING COMMUNICATION [[id number]] Order #: [id number]: 1 STANDING HEMONC NURSING COMMUNICATION [[id number]] Order #: [id number]: 1 STANDING [] goserelin 3.6 mg injection (ZOLADEX)Disp: Rfl: NaCl 0.9% iv infusionDisp: Rfl: diphenhydrAMINE 50 mg injection (BENADRYL)Disp: Rfl: hydrocortisone sodium succinate (PF) 100 mg injection (Solu-CORTEF)Disp: Rfl: EPINEPHrine 1 mg/mL (1 mL) 0.3 mg injectionDisp: Rfl: Follow-up and Disposition History Recorded Prescriptions as of 11/21/2017 Sig: GABAPENTIN 300 MG CAPSULE TAKE 1 CAPSULE AT BEDTIME. HYDROXYCHLOROQUINE 200 MG TAB* Take 1 tablet by mouth twice * METHOTREXATE SODIUM 2.5 MG TA* Take 8 tablets by mouth once * CHOLECALCIFEROL (VITAMIN D3) * Take 1 capsule by mouth once * FOLIC ACID 1 MG TABLET Take 2 mg by mouth once daily. OMEGA 0-BCL-TDY-FISH OIL 1,00* Take 1 g by mouth once daily. MELOXICAM 15 MG TABLET Take 1 tablet by mouth once d* CORICIDIN HBP ORAL Take by mouth as needed. GLUCOSAMINE-CHONDROITIN 750 M* Take 2 tablets by mouth once * ACETAMINOPHEN ER 650 MG TABLE* Take 1,300 mg by mouth every * PREDNISONE 10 MG TABLET Prn SALUD'S WORT 300 MG CAPSULE Take 300 mg by mouth three ti* Patient not taking: Reported on 10/24/2017 FLUTICASONE 50 MCG/ACTUATION * Use 1 [place] in each nostril o* Patient not taking: Reported on 10/24/2017 Problem List As Of Date 11/21/2017 Noted Resolved Hallux valgus (acquired) [M20.10] INVALID FOR* Priority: M Ventral hernia, unspecified, without mention of*INVALID FOR* Priority: C Mixed hyperlipidemia [E78.2] Priority: A Malignant neoplasm of prostate (HCC) [C61] Priority: B More... Irregular heart beat [I49.9] Priority: A More... Well adult exam [Z00.00] INVALID FOR* Priority: E More... Fibromyalgia [M79.7] INVALID FOR* Priority: B Agitation [R45.1] INVALID FOR* Priority: A Generalized OA [M15.9] INVALID FOR* Priority: M More... 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 Medicare annual wellness visit, subsequent [Z00*INVALID FOR* Priority: E More... Elevated fasting blood sugar [R73.01] INVALID FOR* Priority: A Visit Notes: >> Nayeli Negar CARPENTER SunNov 21, 2017 10:20 AM Status: Signed Est patient. Three month office visit. Discuss recent labs. Zoladex today. Influenza Vaccine Documentation: ? Patient is identified by name and date of : Yes ? Patient is older than 6 months of age: Yes ? Patient denies a severe allergy to any vaccine component or to a previous dose of influenza vaccine: Yes FOR EGG ALLERGY CONCERNS, REFER TO PROVIDER. ? Denies allergy to gelatin, formaldehyde, thimerosol :Yes ? Patient is afebrile and not moderately or severely ill: Yes ? Does the patient have a history of Guillain ?Pony Syndrome (a severe paralytic illness): No ? Denies bone marrow transplant prior 6 months or solid organ transplant prior 3 months: Yes ? Denies a history of fainting after a prior injection or medical procedure? Yes If patient has fainted in the past, the CDC recommends sitting or lying down for 15 minutes after the vaccination. ? VIS sheet provided: Yes ? [facility] for details of immunizations administered today. If patient reports dizziness, vision changes or ringing in the ears post vaccination ? please have patient sit or lie down for 15 minutes. Influenza vaccine injection administered right deltoid, tolerated well, no immediate adverse reactions noted. Zoladex injection administered RLQ, tolerated well, no immediate adverse reactions noted. Nayeli Bills LPN Encounter Status:Closed by TRISTAN SANTOS DO on 11/21/17 PSA, DIAGNOSTIC Collected: 11/16/2017 Status: F Source: [place] 8:49 AM [facility] REPOSITORY TYPE CODE TESTS RESULT OUT OF REFERENCE UNITS RANGE LAB PSA 0.00-2.59 ng/mL PSA, Diagnostic <0.03 Result Comment: Total PSA test methodology used is the Electrochemiluminescence Immunoassay. For an individual patient, the significance of a PSA level should be interpreted in a broad clinical context, including age, race, family history, digital rectal exam, prostate size, results of prior te sting (prostate biopsy, free PSA, PCA3), and use of 5-alpha reductase inhibitors. Considering the high incidence of asymptomatic cancer in the general population that may not pose an ultimate risk to a patient, the decision to recommend urological evaluation or prostate biopsy should be individualized after consideration of all these factors. REFERENCE: Nayla George M.D., M.P.H., Caleb Adam M.D., Ph.D., Cristobal Gavin M.D., Ada Cadena, M.P.H., Lorena Ibarra Sc.D. Effect of Verification Bias on Screening for Prostate Cancer by Measurement of Prostatic Specific Antigen. N Engl J Med 2003,349:335-42. Performed By: #### PSA #### [facility] [address], [place] [address] G6PD QUANT Collected: 10/22/2017 Status: F Source: [place] 7:41 AM [facility] REPOSITORY TYPE CODE TESTS RESULT OUT OF RANGE REFERENCE UNITS LAB L3300.1920 4.14-5.80 x10E6/uL Normal RBC COUNT 4.44 LAB L3300.1930 146-376 Normal G6PD 311 QUANT test Result Comment: Result Units: U/10E12 RBC When decreased, G-6-PD, Quant. values are associated with acute hemolytic anemia when deficient individuals are exposed to oxidative stress, such as with certain medications (e.g., primaquine), infection, or ingestion of gabriel beans. Caution: In patients with acute hemolysis (e.g., abnormally low RBC values), testing for G-6-PD may be falsely normal because older erythrocytes with a higher enzyme deficiency have been hemolyzed. Young erythrocytes and reticulocytes have normal or near-normal enzyme activity. Normal values of G-6-PD may be measured for several weeks following a hemolytic event. Performed at: - [facility] [address] [id number] Warehouse Supervisor: Marvin Bahena PhD, Phone: [phone] Performed at: [facility] [address] [id number] Warehouse Supervisor: Cristobal Marte MD, Phone: [phone] Performed By: #### L3300.1900 #### [facility] (refer to report for specific site) refer to report for address and phone number CBC W/DIFF, AUTOMATED Collected: 10/19/2017 Status: F Source: [place] 2:11 PM [facility] REPOSITORY TYPE CODE TESTS RESULT OUT OF RANGE REFERENCE UNITS LAB L100.1000 4.4-11.0 K/mm3 Normal WBC 6.3 LAB L100.1200 4.6-6.2 M/mm3 Low RBC 4.41 LAB L100.1300 13.0-16.5 g/dl Normal HGB 13.8 LAB L100.1400 40-54 % Normal HCT 42.5 LAB L100.1500 80-94 fL High MCV 96.4 LAB L100.1600 27.0-32.0 pg Normal MCH 31.3 LAB L100.1700 32-36 g/gl Normal MCHC 32.5 LAB L100.1810 11.6-14.6 % High RDW CV 14.8 LAB L100.1820 35.1-43.9 fl High RDW SD 50.2 LAB L100.1900 150-450 K/mm3 Normal PLT 203 LAB L100.2000 6.2-12.0 fl Normal MPV 12.0 LAB L100.2100 47-70 % Normal NEUT% 69.0 LAB L100.2200 19-41 % Low LY% 15.0 LAB L100.2300 0-10 % High MONO% 12.1 LAB L100.2400 0-5 % Normal EO% 2.9 LAB L100.2500 0-1 % Normal BASO% 1.0 LAB L100.2550 0.0-0.9 % Normal IM GRAN % 0.000 Result Comment: IG% - Immature Granulocytes (promyelocytes, myelocytes and metamyelocytes) > 1% indicates that a LEFT SHIFT is Present. LAB L100.2620 2.0-7.7 X10 3/uL Normal Absolute Neut 4.3 LAB L100.2720 0.83-4.51 X10 3/ul Normal Absolute Lymph 0.94 Performed By: #### L100.0100 #### [facility] [address] [place], [place], [address] COMPREHENSIVE METABOLIC Collected: 10/19/2017 Status: F Source: [facility] 2:11 PM [facility] REPOSITORY TYPE CODE TESTS RESULT OUT OF RANGE REFERENCE UNITS LAB L501.0100 74-106 mg/dL High GLU 133 Result Comment: Fasting Glucose result greater than or equal to 126 mg/dL suggests DIABETES MELLITUS per A.D.A. criteria. Please note revised GLUCOSE reference range effective 2017. LAB L501.1000 7-18 mg/dL High BUN 20 LAB L501.1100 0.70-1.30 mg/dL Normal CREAT,SERUM 1.09 Result Comment: The validity of the calculated GFR AND GFRAA in patients over 70 years has not been determined. Clinical correlation is essential. LAB L501.1110 >60 mL/min Normal EST GFR 71 Result Comment: Non- GFR Calc LAB L501.1115 >60 mL/min Normal EST GFR - AA 85 Result Comment: GFR Calc LAB L501.1300 10-20 RATIO Normal BUN/CRE 18.3 LAB L501.1500 6.4-8.2 g/dL T Normal PROT 7.7 LAB L501.1800 3.2-5.0 g/dL Normal ALB 3.6 LAB L501.1950 2.2-4.2 g/dL Normal GLOB 4.1 LAB L501.2000 0.9-2.4 RATIO Normal A/G 0.9 LAB L501.2200 8.5-10.1 mg/dL CA Normal 9.2 LAB L501.4100 15-37 U/L Normal AST 22 LAB L501.4305 45-117 U/L Low ALK P 44 LAB L501.4405 16-61 U/L Normal ALT 28 LAB L501.4600 0.20-1.00 mg/dL T Normal BILI 0.30 LAB L501.5300 136-145 mmol/L NA Normal 142 LAB L501.5600 3.5-5.1 mmol/L K Normal 4.3 LAB L501.5900 98-107 mmol/L CL Normal 107 LAB L501.6100 21.0-32.0 mmol/L Normal CO2 26.0 LAB L501.6200 5-15 Normal GAP 9 Performed By: #### L500.4050 #### [facility] [address] [address] [place], [address] PROGRESS Observed: 08/29/2017 Status: COMPLETED Source: [place] 11:04 AM [facility] REPOSITORY HNO ID: [id number] Author: Tristan Santos Service: (none) Author Type: Physician Type: Progress Notes Filed: 08/29/2017 11:31 AM Note Text: Diagnosis: 1) Prostate cancer HPI: The patient is a 72 yo male who had an abnormal HANNAH done on a routine PE by his PCP in 2008. Was referred to a urologist who performed biopsy. Pathology significant for Henderson score 5+4 on the right and 3+3 on the left. PSA was 5.5 ng/ml. He was referred to [facility] and enrolled in the [facility] (90829; [facility]) trial. Received 6 cycles neoadjuvant docetaxel along with GnRH therapy. Completed the 6 cycles with dose reduction after first cycle due to a flare of FM pain in legs. Underwent robotic radical prostatectomy on 06/29/2009. Pathology revealed Henderson 3+5 adenocarcinoma involving 8% of the gland b/l; multifocal extraprostatic extension and seminal vesical involvement. Margins were negative and nodes negative (pT3bN0). Had PSA<0.01 12/2009-09/2010. Most recent evaluation at [facility] prior to transfer here 0.04 ng/ml. CT and bone scan indicated no radiographic evidence metastatic disease. Then went on to complete salvage RT 06/29/2014. PSA showed an increased just prior to establishing care here. Current therapy: 1) GnRH injection (Zoladex). Presents for ongoing oncologic management. Interim history: Was changed to Lupron due to formulary change last fall. Didn't tolerate well--lethargy and mood change. Rotated back to Zoladex monthly in 02/2017. Better now. No dysuria, frequency. Rare nocturia. He has no complaints today. He still gets occasional flares of fibromyalgia/arthritis. He said hot flashes aren't as intense as they used to be. His energy levels doing fairly well. Appetite is normal. PMH, medications and allergies as below personally reviewed by me today. Any changes documented in appropriate section. ROS: Constitutional: Denies episodes of fever and night sweats. Neuro: Denies JIMENES, vertigo and imbalance. No symptoms of neuropathy. HEENT: No recent change in voice, vision or hearing. Resp: Denies cough, wheeze and hemoptysis. No shortness of breath at rest. No MEYER. CVS: Denies exertional chest pain, PND, orthopnea and LE edema. GI: Denies reflux, n/v, change in bowel habits and abdominal pain. No symptoms of stomatitis. : See above. Endo: See above. Derm: No rash. MS: See above. Heme: No unusual bleeding or bruising. Psych: Normal mood. PHYSICAL EXAM: Vitals: Blood pressure 109/64, pulse 77, temperature 36.7 ?C (98.1 ?F), temperature source Oral, weight 110 kg (242 lb 8 oz). Well-appearing and in no acute distress. EYES: Sclerae are anicteric bilaterally. NECK: Supple. No enlargement of thyroid. LYMPHATIC: There is no palpable cervical, supraclavicular or axillary adenopathy. RESPIRATORY: Inspiratory breath sounds are of normal intensity in all edouard. No rales, wheezes or rhonchi. CARDIOVASCULAR: Rhythm is regular. Normal intensity S1/S2. There is no gallop or murmur. ABDOMEN: The abdomen is nondistended. There is no organomegaly. No tenderness. Extremities: Free of edema. SKIN: No jaundice or rash. No petechiae. NEUROLOGIC: supervisor fitting II-XII are grossly intact. No focal motor weakness. ASSESSMENT/PLAN: 1) High risk prostate cancer. Rising PSA following neoadjuvant ADT/Taxotere on clinical trial at [facility]. s/p salvage radiation. No concerning symptoms or exam findings. -Tolerating and responding well to GnRH therapy. -Discussed new approval for Xtandi and apalutamide. Plan: -Monitor PSA every 3 months. -Monthly Zoladex. -Prolia q 6 months. Tristan Santos DO CNOVSP Observed: 08/29/2017 Status: COMPLETED Source: [place] 10:50 AM [facility] REPOSITORY Visit (SP) Office (GAUTAM) LORNA MARTINS ([id number]) [address] [facility] Date Time Provider Department 08/29/17 10:50 AM TRISTAN SANTOS During your visit today, we recorded the following information about you: Temperature Pulse Blood pressure Weight 98.1 degrees 77/minute 109/64 110 kg Inez Loya LPN, LPN 08/29/2017 10:58 AM Signed sandostatin injection administered, left lower abd., tolerated well, no immediate adverse reactions noted. JAYDEN Conroy DO 08/29/2017 11:31 AM Signed Diagnosis: 1) Prostate cancer HPI: The patient is a 72 yo male who had an abnormal HANNAH done on a routine PE by his PCP in 2008. Was referred to a urologist who performed biopsy. Pathology significant for Henderson score 5+4 on the right and 3+3 on the left. PSA was 5.5 ng/ml. He was referred to [facility] and enrolled in the [facility] ([address]003; [facility]) trial. Received 6 cycles neoadjuvant docetaxel along with GnRH therapy. Completed the 6 cycles with dose reduction after first cycle due to a flare of FM pain in legs. Underwent robotic radical prostatectomy on 06/29/2009. Pathology revealed Dimitris 3+5 adenocarcinoma involving 8% of the gland b/l; multifocal extraprostatic extension and seminal vesical involvement. Margins were negative and nodes negative (pT3bN0). Had PSA<0.01 12/2009-09/2010. Most recent evaluation at [facility] prior to transfer here 0.04 ng/ml. CT and bone scan indicated no radiographic evidence metastatic disease. Then went on to complete salvage RT 06/29/2014. PSA showed an increased just prior to establishing care here. Current therapy: 1) GnRH injection (Zoladex). Presents for ongoing oncologic management. Interim history: Was changed to Lupron due to formulary change last fall. Didn't tolerate well--lethargy and mood change. Rotated back to Zoladex monthly in 02/2017. Better now. No dysuria, frequency. Rare nocturia. He has no complaints today. He still gets occasional flares of fibromyalgia/arthritis. He said hot flashes aren't as intense as they used to be. His energy levels doing fairly well. Appetite is normal. PMH, medications and allergies as below personally reviewed by me today. Any changes documented in appropriate section. ROS: Constitutional: Denies episodes of fever and night sweats. Neuro: Denies JIMEENS, vertigo and imbalance. No symptoms of neuropathy. HEENT: No recent change in voice, vision or hearing. Resp: Denies cough, wheeze and hemoptysis. No shortness of breath at rest. No MEYER. CVS: Denies exertional chest pain, PND, orthopnea and LE edema. GI: Denies reflux, n/v, change in bowel habits and abdominal pain. No symptoms of stomatitis. : See above. Endo: See above. Derm: No rash. MS: See above. Heme: No unusual bleeding or bruising. Psych: Normal mood. PHYSICAL EXAM: Vitals: Blood pressure 109/64, pulse 77, temperature 36.7 ?C (98.1 ?F), temperature source Oral, weight 110 kg (242 lb 8 oz). Well-appearing and in no acute distress. EYES: Sclerae are anicteric bilaterally. NECK: Supple. No enlargement of thyroid. LYMPHATIC: There is no palpable cervical, supraclavicular or axillary adenopathy. RESPIRATORY: Inspiratory breath sounds are of normal intensity in all edouard. No rales, wheezes or rhonchi. CARDIOVASCULAR: Rhythm is regular. Normal intensity S1/S2. There is no gallop or murmur. ABDOMEN: The abdomen is nondistended. There is no organomegaly. No tenderness. Extremities: Free of edema. SKIN: No jaundice or rash. No petechiae. NEUROLOGIC: supervisor fitting II-XII are grossly intact. No focal motor weakness. ASSESSMENT/PLAN: 1) High risk prostate cancer. Rising PSA following neoadjuvant ADT/Taxotere on clinical trial at [facility]. s/p salvage radiation. No concerning symptoms or exam findings. -Tolerating and responding well to GnRH therapy. -Discussed new approval for Xtandi and apalutamide. Plan: -Monitor PSA every 3 months. -Monthly Zoladex. -Prolia q 6 months. Tristan Santos DO Referring Provider: TRISTAN SANTOS [[id number]] Allergies As of Date: 08/29/2017 Noted Allergy Reaction PENICILLINS 08/17/2006 4 - Hives Date Reviewed: 08/29/2017 Reviewed by: Claudette Mckinney - Fully Assessed Reason for Visit: Established Patient [175] Primary Visit Diagnosis:Malignant neoplasm of prostate (HCC) [C61] Order(s):TREATMENT PARAMETER-NOT NEEDED [[id number]] Order #: [id number]: 1 HEMONC NURSING COMMUNICATION [[id number]] Order #: [id number]: 1 STANDING HEMONC NURSING COMMUNICATION [[id number]] Order #: [id number]: 1 STANDING HEMONC NURSING COMMUNICATION [[id number]] Order #: [id number]: 1 STANDING NaCl 0.9% iv infusionDisp: Rfl: [] goserelin 3.6 mg injection (ZOLADEX)Disp: Rfl: diphenhydrAMINE 50 mg injection (BENADRYL)Disp: Rfl: hydrocortisone sodium succinate (PF) 100 mg injection (Solu-CORTEF)Disp: Rfl: EPINEPHrine 1 mg/mL (1 mL) 0.3 mg injectionDisp: Rfl: Follow-up and Disposition History Recorded Prescriptions as of 08/29/2017 Sig: GABAPENTIN 300 MG CAPSULE TAKE 1 CAPSULE AT BEDTIME. HYDROXYCHLOROQUINE 200 MG TAB* Take 1 tablet by mouth twice * METHOTREXATE SODIUM 2.5 MG TA* Take 8 tablets by mouth once * PREDNISONE 10 MG TABLET Prn CHOLECALCIFEROL (VITAMIN D3) * Take 1 capsule by mouth once * FOLIC ACID 1 MG TABLET Take 2 mg by mouth once daily. OMEGA 3-KBS-GUB-FISH OIL 1,00* Take 1 g by mouth once daily. MELOXICAM 15 MG TABLET Take 1 tablet by mouth once d* SALUD'S WORT 300 MG CAPSULE Take 300 mg by mouth three ti* FLUTICASONE 50 MCG/ACTUATION * Use 1 [place] in each nostril o* CORICIDIN HBP ORAL Take by mouth as needed. GLUCOSAMINE-CHONDROITIN 750 M* Take 2 tablets by mouth once * ACETAMINOPHEN ER 650 MG TABLE* Take 1,300 mg by mouth every * Medication notes this encounter GLUCOSAMINE-CHONDROITIN 750 MG-600 MG TABLET >> Claudette Mckinney MA 08/29/2017 10:34 AM >> CLAUDETTE MCKINNEY MA SunAug 29, 2017 10:34 AM Taking two tablets once daily. Problem List As Of Date 08/29/2017 Noted Resolved Hallux valgus (acquired) [M20.10] INVALID FOR* Priority: M Ventral hernia, unspecified, without mention of*INVALID FOR* Priority: C Mixed hyperlipidemia [E78.2] Priority: A Malignant neoplasm of prostate (HCC) [C61] Priority: B More... Irregular heart beat [I49.9] Priority: A More... Well adult exam [Z00.00] INVALID FOR* Priority: E More... Fibromyalgia [M79.7] INVALID FOR* Priority: B Agitation [R45.1] INVALID FOR* Priority: A Generalized OA [M15.9] INVALID FOR* Priority: M More... 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 Medicare annual wellness visit, subsequent [Z00*INVALID FOR* Priority: E More... Elevated fasting blood sugar [R73.01] INVALID FOR* Priority: A Visit Notes: >> Inez Farris (Certified Genetic Counselor) JAYDEN Loya SunAug 29, 2017 10:58 AM Status: Signed sandostatin injection administered, left lower abd., tolerated well, no immediate adverse reactions noted. Inez Loya, JAYDEN Encounter Status:Closed by TRISTAN SANTOS DO on 08/29/17 PSA, DIAGNOSTIC Collected: 08/29/2017 Status: F Source: [place] 10:18 AM [facility] REPOSITORY TYPE CODE TESTS RESULT OUT OF REFERENCE UNITS RANGE LAB PSA 0.00-2.59 ng/mL PSA, Diagnostic <0.03 Result Comment: Total PSA test methodology used is the Electrochemiluminescence Immunoassay. For an individual patient, the significance of a PSA level should be interpreted in a broad clinical context, including age, race, family history, digital rectal exam, prostate size, results of prior te sting (prostate biopsy, free PSA, PCA3), and use of 5-alpha reductase inhibitors. Considering the high incidence of asymptomatic cancer in the general population that may not pose an ultimate risk to a patient, the decision to recommend urological evaluation or prostate biopsy should be individualized after consideration of all these factors. REFERENCE: Nayla George M.D., M.P.H., Caleb Adam M.D., Ph.D., Cristobal Gavin M.D., Ada Cadena, M.P.H., Lorena Ibarra, Sc.D. Effect of Verification Bias on Screening for Prostate Cancer by Measurement of Prostatic Specific Antigen. N Engl J Med 2003,349:335-42. Performed By: #### PSA #### [facility] [address], [place] [address] PROGRESS Observed: 08/28/2017 Status: COMPLETED Source: [place] 8:07 AM [facility] REPOSITORY HNO ID: [id number] Author: Winston Langford Service: (none) Author Type: Physician Type: Progress Notes Filed: 08/28/2017 1:20 PM Note Text: Chief Complaint Patient presents with: Recheck HPI Lorna Martins is a 72 year old male who presents here today for Chronic Medical Conditions.. Patient with Hx as reviewed and documented below. Has been doing ok. Still doing the lupron shot for prostate cancer and getting PSA every 3 months at this time and doing fine. Past medical history, appointments, medications, allergies reviewed. Previous Medical History PAST MEDICAL HISTORY Diagnosis Date - Agitation 10/17/2013 - Fibromyalgia 10/17/2013 - Generalized OA 10/17/2013 Bilateral knees and shoulders - Irregular heart beat irregular heartbeat - not on medication - Malignant neoplasm of prostate (HCC) Prostate cancer - Myalgia and myositis, unspecified - Pure hypercholesterolemia - Rheumatoid arthritis involving multiple sites (HCC) 08/03/[address] Mena Previous Surgical History PAST SURGICAL HISTORY Procedure Laterality Date - COLONOSCOPY 07/13/2009 repeat 10 yrs - FECAL OCCULT BLOOD TEST 03/05/2017 negative - PAST SURGICAL HISTORY OF dental extraction with general anesthesia - PAST SURGICAL HISTORY OF 05/2009 prostatectomy, for cancer - REPAIR INCISIONAL HERNIA,CRISTINA 03/24/11 Family History FAMILY HISTORY Problem Relation Age of Onset - Breast Cancer Sister - Alcohol/Drug Mother - Alcohol/Drug Father - Alcohol/Drug Brother - Prostate Cancer Brother - Other [Other] [OTHER] Sister both sisters with A-Fib - Diabetes Sister - Lipids Sister - Heart Sister A fib - Heart Sister A. Fib - Heart Brother CHF - COPD Brother - cirrhosis [Other] [OTHER] Brother Patient Allergies ALLERGIES Allergen Reactions - Penicillins Hives Current Medications Current Outpatient Prescriptions on File Prior to Visit: gabapentin (NEURONTIN) 300 mg capsule TAKE 1 CAPSULE AT BEDTIME. hydroxychloroquine (PLAQUENIL) 200 mg tablet Take 1 tablet by mouth twice daily. methotrexate 2.5 mg tablet Take 8 tablets by mouth once each week. predniSONE (DELTASONE) 10 mg tablet Prn Cholecalciferol, Vitamin D3, 5,000 unit cap Take 1 capsule by mouth once daily. folic acid 1 mg tablet Take 2 mg by mouth once daily. Whitj-9-WRL-EPA-Fish Oil (FISH OIL) 1,000 mg (120 mg-180 mg) cap Take 1 g by mouth once daily. meloxicam (MOBIC) 15 mg tablet Take 1 tablet by mouth once daily. Odon's Wort 300 mg cap Take 300 mg by mouth three times daily. fluticasone (FLONASE) 50 mcg/actuation nasal spray Use 1 [place] in each nostril once daily. Rinse mouth after use. GUAIFENESIN/DEXTROMETHORPHAN (CORICIDIN HBP ORAL) Take by mouth as needed. GLUCOSAMINE HCL/CHONDR MONAE A NA (GLUCOSAMINE-CHONDROITIN) 750- 600 mg tab Take 2 tablets by mouth once daily. acetaminophen (TYLENOL ARTHRITIS) 650 mg CR tablet Take 1,300 mg by mouth every 8 hours as needed. No current facility-administered medications on file prior to visit. Social History Social History Marital status: Spouse name: Years of education: Number of children: Social History Main Topics Smoking status: Former Smoker Packs/day: 0.00 Years: 0.00 Types: Cigars Quit date: 11/07/2002 Smokeless tobacco: Never Used Comment: Pt smoked cigars on AND off x 20 years. Alcohol use: No Comment: rare Drug use: No Sexual activity: No Review of Symptoms REVIEW OF SYSTEMS GENERAL: No weight loss, malaise or fevers NECK: Negative for lumps, goiter, pain and significant neck swelling RESPIRATORY: Negative for cough, hemoptysis, wheezing, COPD, dyspnea or shortness of breath CARDIOVASCULAR: Negative for chest pain, leg swelling, hypertension, CHF or palpitations GI: No nausea, vomiting, or diarrhea and No frequent heartburn or reflux symptoms NEURO: No history of headaches, syncope, paralysis, seizures or tremors EXAM: BP 114/72 (BP Site: Left Arm, BP Position: Sitting, BP Cuff Size: Large Adult) Pulse 72 Resp (!) 72 Wt 110.2 kg (243 lb) BMI 28.82 kg/m? General Appearance: Well appearing, alert, in no acute distress, well-hydrated, well nourished.. Neck: Supple, no adenopathy; thyroid symmetric, normal size, no bruits. Lungs: Lungs clear to auscultation. No wheezing, rhonchi, rales. Heart: RRR without murmur, gallop, or rubs. No ectopy. Abdomen: Normal abdominal exam, Abdomen soft, non-tender. Bowel sounds normal. No masses, organomegaly. Extremities: No deformities, edema, skin discoloration,. Peripheral Pulses: Normal. Health Maintenance List INFLUENZA(1) due on 10/13/2017 COLORECTAL CANCER SCREENING,SEE MODIFIER due on 07/14/2019 DIABETES SCREEN due on 08/21/2020 LIPID SCREEN due on 08/21/2022 DTAP,TDAP,TD(2 - Td) due on 03/05/2023 ADULT PREVNAR-13 Completed HEPATITIS C SCREENING Completed PNEUMOVAX AGE 65 AND OVER WITH 5YR LOOKBACK Completed Data reviewed Component Latest Ref Rng AND Units 01/19/2017 03/01/2017 08/21/2017 Triglyceride <150 mg/dL 134 126 Cholesterol, Total <200 mg/dL 193 168 HDL Cholesterol >39 mg/dL 52 53 VLDL Cholesterol <30 mg/dL 27 25 LDL Cholesterol <100 mg/dL 114 90 Fasting Time hrs 12 12 TC:HDL Ratio <5.10 3.71 3.17 LDL:HDL Ratio <2.54 2.19 1.70 Non HDL Cholesterol <130 mg/dL 141 115 Hemoglobin A1C 4.3 - 5.6 % 6.0 (H) 5.7 (H) Estimated Average Glucose mg/dL 126 117 A/P ASSESSMENT/PLAN: 1. Mixed hyperlipidemia - ICD9: 272.2, ICD10: E78.2 (primary diagnosis) - good control - Encouraged following a low fat, low cholesterol diet. - Discussed the benefits of regular aerobic exercise and weight loss. - Encouraged following a low carbohydrate, healthy oil intake diet. 2. Elevated fasting blood sugar - ICD9: 790.21, ICD10: R73.01 - Improved A1c. Patient to continue diet and exercise changes 3. Agitation - ICD9: 307.9, ICD10: R45.1 - Doing well taking the Odon's Wart. 4. Malignant neoplasm of prostate (HCC) - ICD9: 185, ICD10: C61 - Clinically stable, cont f/u with Urology 5. Fibromyalgia - ICD9: 729.1, ICD10: M79.7 - clinically stable with current treatment, no changes. f/u 6 months WAE check CMP, FLP, UA and A1c prior Winston Langford MD CNOV Observed: 08/28/2017 Status: COMPLETED Source: [place] 8:00 AM [facility] REPOSITORY [facility] LORNA MARTINS ([id number]) 1945 M [facility] Date Time Provider Department 08/28/17 8:00 AM WINSTON LANGFORD During your visit today, we recorded the following information about you: Pulse Respiration Blood pressure Weight 72/minute 72/minute 114/72 110.2 kg Winston Langford MD 08/28/2017 1:20 PM Signed Chief Complaint Patient presents with: Recheck HPI Lorna Martins is a 72 year old male who presents here today for Chronic Medical Conditions.. Patient with Hx as reviewed and documented below. Has been doing ok. Still doing the lupron shot for prostate cancer and getting PSA every 3 months at this time and doing fine. Past medical history, appointments, medications, allergies reviewed. Previous Medical History PAST MEDICAL HISTORY Diagnosis Date - Agitation 10/17/2013 - Fibromyalgia 10/17/2013 - Generalized OA 10/17/2013 Bilateral knees and shoulders - Irregular heart beat irregular heartbeat - not on medication - Malignant neoplasm of prostate (HCC) Prostate cancer - Myalgia and myositis, unspecified - Pure hypercholesterolemia - Rheumatoid arthritis involving multiple sites (HCC) 08/03/[address] Mena Previous Surgical History PAST SURGICAL HISTORY Procedure Laterality Date - COLONOSCOPY 07/13/2009 repeat 10 yrs - FECAL OCCULT BLOOD TEST 03/05/2017 negative - PAST SURGICAL HISTORY OF dental extraction with general anesthesia - PAST SURGICAL HISTORY OF 05/2009 prostatectomy, for cancer - REPAIR INCISIONAL HERNIA,CRISTINA 03/24/11 Family History FAMILY HISTORY Problem Relation Age of Onset - Breast Cancer Sister - Alcohol/Drug Mother - Alcohol/Drug Father - Alcohol/Drug Brother - Prostate Cancer Brother - Other [Other] [OTHER] Sister both sisters with A-Fib - Diabetes Sister - Lipids Sister - Heart Sister A fib - Heart Sister A. Fib - Heart Brother CHF - COPD Brother - cirrhosis [Other] [OTHER] Brother Patient Allergies ALLERGIES Allergen Reactions - Penicillins Hives Current Medications Current Outpatient Prescriptions on File Prior to Visit: gabapentin (NEURONTIN) 300 mg capsule TAKE 1 CAPSULE AT BEDTIME. hydroxychloroquine (PLAQUENIL) 200 mg tablet Take 1 tablet by mouth twice daily. methotrexate 2.5 mg tablet Take 8 tablets by mouth once each week. predniSONE (DELTASONE) 10 mg tablet Prn Cholecalciferol, Vitamin D3, 5,000 unit cap Take 1 capsule by mouth once daily. folic acid 1 mg tablet Take 2 mg by mouth once daily. Qjjnl-7-BBL-EPA-Fish Oil (FISH OIL) 1,000 mg (120 mg-180 mg) cap Take 1 g by mouth once daily. meloxicam (MOBIC) 15 mg tablet Take 1 tablet by mouth once daily. Salud's Wort 300 mg cap Take 300 mg by mouth three times daily. fluticasone (FLONASE) 50 mcg/actuation nasal spray Use 1 [place] in each nostril once daily. Rinse mouth after use. GUAIFENESIN/DEXTROMETHORPHAN (CORICIDIN HBP ORAL) Take by mouth as needed. GLUCOSAMINE HCL/CHONDR MONAE A NA (GLUCOSAMINE-CHONDROITIN) 750- 600 mg tab Take 2 tablets by mouth once daily. acetaminophen (TYLENOL ARTHRITIS) 650 mg CR tablet Take 1,300 mg by mouth every 8 hours as needed. No current facility-administered medications on file prior to visit. Social History Social History Marital status: Spouse name: Years of education: Number of children: Social History Main Topics Smoking status: Former Smoker Packs/day: 0.00 Years: 0.00 Types: Cigars Quit date: 11/07/2002 Smokeless tobacco: Never Used Comment: Pt smoked cigars on AND off x 20 years. Alcohol use: No Comment: rare Drug use: No Sexual activity: No Review of Symptoms REVIEW OF SYSTEMS GENERAL: No weight loss, malaise or fevers NECK: Negative for lumps, goiter, pain and significant neck swelling RESPIRATORY: Negative for cough, hemoptysis, wheezing, COPD, dyspnea or shortness of breath CARDIOVASCULAR: Negative for chest pain, leg swelling, hypertension, CHF or palpitations GI: No nausea, vomiting, or diarrhea and No frequent heartburn or reflux symptoms NEURO: No history of headaches, syncope, paralysis, seizures or tremors EXAM: BP 114/72 (BP Site: Left Arm, BP Position: Sitting, BP Cuff Size: Large Adult) Pulse 72 Resp (!) 72 Wt 110.2 kg (243 lb) BMI 28.82 kg/m? General Appearance: Well appearing, alert, in no acute distress, well-hydrated, well nourished.. Neck: Supple, no adenopathy; thyroid symmetric, normal size, no bruits. Lungs: Lungs clear to auscultation. No wheezing, rhonchi, rales. Heart: RRR without murmur, gallop, or rubs. No ectopy. Abdomen: Normal abdominal exam, Abdomen soft, non-tender. Bowel sounds normal. No masses, organomegaly. Extremities: No deformities, edema, skin discoloration,. Peripheral Pulses: Normal. Health Maintenance List INFLUENZA(1) due on 10/13/2017 COLORECTAL CANCER SCREENING,SEE MODIFIER due on 07/14/2019 DIABETES SCREEN due on 08/21/2020 LIPID SCREEN due on 08/21/2022 DTAP,TDAP,TD(2 - Td) due on 03/05/2023 ADULT PREVNAR-13 Completed HEPATITIS C SCREENING Completed PNEUMOVAX AGE 65 AND OVER WITH 5YR LOOKBACK Completed Data reviewed Component Latest Ref Rng AND Units 01/19/2017 03/01/2017 08/21/2017 Triglyceride <150 mg/dL 134 126 Cholesterol, Total <200 mg/dL 193 168 HDL Cholesterol >39 mg/dL 52 53 VLDL Cholesterol <30 mg/dL 27 25 LDL Cholesterol <100 mg/dL 114 90 Fasting Time hrs 12 12 TC:HDL Ratio <5.10 3.71 3.17 LDL:HDL Ratio <2.54 2.19 1.70 Non HDL Cholesterol <130 mg/dL 141 115 Hemoglobin A1C 4.3 - 5.6 % 6.0 (H) 5.7 (H) Estimated Average Glucose mg/dL 126 117 A/P ASSESSMENT/PLAN: 1. Mixed hyperlipidemia - ICD9: 272.2, ICD10: E78.2 (primary diagnosis) - good control - Encouraged following a low fat, low cholesterol diet. - Discussed the benefits of regular aerobic exercise and weight loss. - Encouraged following a low carbohydrate, healthy oil intake diet. 2. Elevated fasting blood sugar - ICD9: 790.21, ICD10: R73.01 - Improved A1c. Patient to continue diet and exercise changes 3. Agitation - ICD9: 307.9, ICD10: R45.1 - Doing well taking the Odon's Wart. 4. Malignant neoplasm of prostate (HCC) - ICD9: 185, ICD10: C61 - Clinically stable, cont f/u with Urology 5. Fibromyalgia - ICD9: 729.1, ICD10: M79.7 - clinically stable with current treatment, no changes. f/u 6 months WAE check CMP, FLP, UA and A1c prior MD Winston Florian MD 08/28/2017 8:15 AM Signed Please get fasting labs and urine test on or after 02/15/2018 prior to next visit. Referring Provider: WINSTON LAGNFORD [[id number]] Allergies As of Date: 08/28/2017 Noted Allergy Reaction PENICILLINS 08/17/2006 4 - Hives Date Reviewed: 08/28/2017 Reviewed by: Winston Langford - Fully Assessed Reason for Visit: Recheck [92] Primary Visit Diagnosis:Mixed hyperlipidemia [E78.2] Other Visit Diagnoses:Elevated fasting blood sugar [R73.01] Agitation [R45.1] Malignant neoplasm of prostate (HCC) [C61] Fibromyalgia [M79.7] Order(s):COMP METABOLIC PANEL [SQCMP] Order #: [id number] FUTURE HGB A1C [TMOYJ0N] Order #: [id number] FUTURE LIPID PANEL BASIC [SQLIPB] Order #: [id number] FUTURE URINALYSIS WITH MICROSCOPIC [SQUAWMIC] Order #: [id number] FUTURE Prescriptions as of 08/28/2017 Sig: GABAPENTIN 300 MG CAPSULE TAKE 1 CAPSULE AT BEDTIME. HYDROXYCHLOROQUINE 200 MG TAB* Take 1 tablet by mouth twice * METHOTREXATE SODIUM 2.5 MG TA* Take 8 tablets by mouth once * PREDNISONE 10 MG TABLET Prn CHOLECALCIFEROL (VITAMIN D3) * Take 1 capsule by mouth once * FOLIC ACID 1 MG TABLET Take 2 mg by mouth once daily. OMEGA 6-BAV-CGB-FISH OIL 1,00* Take 1 g by mouth once daily. MELOXICAM 15 MG TABLET Take 1 tablet by mouth once d* SALUD'S WORT 300 MG CAPSULE Take 300 mg by mouth three ti* FLUTICASONE 50 MCG/ACTUATION * Use 1 [place] in each nostril o* CORICIDIN HBP ORAL Take by mouth as needed. GLUCOSAMINE-CHONDROITIN 750 M* Take 2 tablets by mouth once * ACETAMINOPHEN ER 650 MG TABLE* Take 1,300 mg by mouth every * Problem List As Of Date 08/28/2017 Noted Resolved Hallux valgus (acquired) [M20.10] INVALID FOR* Priority: M Ventral hernia, unspecified, without mention of*INVALID FOR* Priority: C Mixed hyperlipidemia [E78.2] Priority: A Malignant neoplasm of prostate (HCC) [C61] Priority: B More... Irregular heart beat [I49.9] Priority: A More... Well adult exam [Z00.00] INVALID FOR* Priority: E More... Fibromyalgia [M79.7] INVALID FOR* Priority: B Agitation [R45.1] INVALID FOR* Priority: A Generalized OA [M15.9] INVALID FOR* Priority: M More... 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 Medicare annual wellness visit, subsequent [Z00*INVALID FOR* Priority: E More... Elevated fasting blood sugar [R73.01] INVALID FOR* Priority: A Other instructions from your clinician: Please get fasting labs and urine test on or after 02/15/2018 prior to next visit. Disposition: Return in about 6 months (around 02/28/2018) for complete /medicare wellness. Follow-up and Disposition History Recorded Encounter Status:Closed by WINSTON LANGFORD on 08/28/17 LIPID PANEL, BASIC Collected: 08/21/2017 Status: F Source: [place] 8:48 AM [facility] TYPE CODE TESTS RESULT OUT OF REFERENCE UNITS RANGE LAB CHOL <200 mg/dL Cholesterol 168 Result Comment: <200 mg/dL, Desirable 200-239 mg/dL, Borderline high >239 mg/dL, High LAB TRIGLY <150 mg/dL Triglyceride 126 Result Comment: <150 mg/dL, Normal 150-199 mg/dL, Borderline high 200-499 mg/dL, High >499 mg/dL, Very high LAB HDL >39 mg/dL HDL-Cholesterol 53 Result Comment: 40-59 mg/dL, Acceptable >59 mg/dL, High: Negative risk factor for coronary heart disease <40 mg/dL, Low: Positive risk factor for coronary heart disease LAB LDL <100 mg/dL LDL-Cholesterol 90 Result Comment: <100 mg/dL, Optimal 100-129 mg/dL, Near optimal/above optimal 130-159 mg/dL, Borderline high 160-189 mg/dL, High >189 mg/dL, Very high Secondary prevention optimal LDL Cholesterol levels are recommended to be < 70 mg/dL LAB NONHDL <130 mg/dL Non HDL Cholesterol 115 Result Comment: <130 mg/dL, Optimal 130-159 mg/dL, Near optimal/above optimal 160-189 mg/dL, Borderline high 190-219 mg/dL, High >219 mg/dL, Very high Secondary prevention optimal non HDL Cholesterol levels are recommended to be < 100 mg/dL LAB FT hrs Fasting Time 12 LAB VLDL <30 mg/dL VLDL Cholesterol 25 LAB TCHDL <5.10 TC:HDL Ratio 3.17 LAB LDLHDL <2.54 LDL:HDL Ratio 1.70 Result Comment: Reference: 1. National Cholesterol Education Program ATP III Guideline At-A-Glance Quick Desk Reference: National Heart, Lung, and Blood [place]. National Institutes of Health. 2001: NIH Publication No. 01-3305. 2. An International Atherosclerosis Society position paper: global recommendations for the management of dyslipidemia: executive summary, Atherosclerosis. 2014: 232(2):410-413. Performed By: #### LIPB, HBA1C #### [facility] [address], [place] [address] HEMOGLOBIN A1C Collected: 08/21/2017 Status: F Source: [place] 8:48 AM [facility] [place] REPOSITORY TYPE CODE TESTS RESULT OUT OF REFERENCE UNITS RANGE LAB HGBA1C 4.3-5.6 % High Hemoglobin A1c 5.7 LAB HBA0 mg/dL Est. Average Glucose 117 Result Comment: eAG: (Estimated average glucose) is a calculated value from HgbA1c and is group sales representative of the average blood glucose level in the last 2-3 month period. Performed By: #### LIPB, HBA1C #### [facility] [address] [place] [address] DOWNTIME REPORT Observed: 08/02/2017 Status: F Source: [place] 1:59 PM [facility] REPOSITORY [facility] Medical Records Department [address] [place] [address] Downtime Report MR#: [id number] Acct: [id number] Name: LORNA MARTINS Rep #: [id number] : 1945 72 From: Rickey Amaral PCP: Winston Langford MD Status: REG CLI This patient was seen during an EMR downtime July 16, 2017 - July 23, 2017. This patient may have a combination of paper and electronic documentation or all paper documentation. All documentation is viewable within the e-chart portion of [facility] for each patient visit. COMPREHENSIVE METABOLIC Collected: 07/23/2017 Status: F Source: [place] 8:19 AM [facility] REPOSITORY TYPE CODE TESTS RESULT OUT OF RANGE REFERENCE UNITS LAB L501.0100 74-106 mg/dL Normal GLU 97 Result Comment: Please note revised GLUCOSE reference range effective 2017. LAB L501.1000 7-18 mg/dL Normal BUN 11 LAB L501.1100 0.70-1.30 mg/dL Normal CREAT,SERUM 0.82 Result Comment: The validity of the calculated GFR AND GFRAA in patients over 70 years has not been determined. Clinical correlation is essential. LAB L501.1110 >60 mL/min Normal EST GFR 98 Result Comment: Non- GFR Calc LAB L501.1115 >60 mL/min Normal EST GFR - AA 119 Result Comment: GFR Calc LAB L501.1300 10-20 RATIO Normal BUN/CRE 13.4 LAB L501.1500 6.4-8.2 g/dL T Normal PROT 7.8 LAB L501.1800 3.2-5.0 g/dL Normal ALB 3.3 LAB L501.1950 2.2-4.2 g/dL High GLOB 4.5 LAB L501.2000 0.9-2.4 RATIO Low A/G 0.7 LAB L501.2200 8.5-10.1 mg/dL CA Normal 8.8 LAB L501.4100 15-37 U/L Low AST 14 LAB L501.4305 45-117 U/L Normal ALK P 68 LAB L501.4405 16-61 U/L Normal ALT 23 LAB L501.4600 0.20-1.00 mg/dL T Normal BILI 0.40 LAB L501.5300 136-145 mmol/L NA Normal 138 LAB L501.5600 3.5-5.1 mmol/L K Normal 4.4 LAB L501.5900 98-107 mmol/L CL Normal 104 LAB L501.6100 21.0-32.0 mmol/L Normal CO2 27.0 LAB L501.6200 5-15 Normal GAP 7 Performed By: #### L500.4050 #### [facility] [address] [facility] [place], [place], [address] CBC W/DIFF, AUTOMATED Collected: 07/23/2017 Status: F Source: [place] 8:19 AM [facility] REPOSITORY TYPE CODE TESTS RESULT OUT OF RANGE REFERENCE UNITS LAB L100.1000 4.4-11.0 K/mm3 Normal WBC 5.0 LAB L100.1200 4.6-6.2 M/mm3 Low RBC 4.42 LAB L100.1300 13.0-16.5 g/dl Normal HGB 13.9 LAB L100.1400 40-54 % Normal HCT 42.4 LAB L100.1500 80-94 fL High MCV 95.9 LAB L100.1600 27.0-32.0 pg Normal MCH 31.4 LAB L100.1700 32-36 g/gl Normal MCHC 32.8 LAB L100.1810 11.6-14.6 % Normal RDW CV 14.0 LAB L100.1820 35.1-43.9 fl High RDW SD 46.9 LAB L100.1900 150-450 K/mm3 Normal PLT 278 LAB L100.2000 6.2-12.0 fl Normal MPV 11.1 LAB L100.2100 47-70 % Normal NEUT% 54.4 LAB L100.2200 19-41 % Normal LY% 24.3 LAB L100.2300 0-10 % High MONO% 13.5 LAB L100.2400 0-5 % High EO% 5.6 LAB L100.2500 0-1 % High BASO% 2.0 LAB L100.2550 0.0-0.9 % Normal IM GRAN % 0.200 Result Comment: IG% - Immature Granulocytes (promyelocytes, myelocytes and metamyelocytes) > 1% indicates that a LEFT SHIFT is Present. LAB L100.2620 2.0-7.7 X10 3/uL Normal Absolute Neut 2.7 LAB L100.2720 0.83-4.51 X10 3/ul Normal Absolute Lymph 1.22 Performed By: #### L100.0100 #### [facility] [address] [facility], [address] PROGRESS Observed: 07/18/2017 Status: COMPLETED Source: [place] 8:44 AM [facility] REPOSITORY HNO ID: [id number] Author: Corina Arechiga Service: (none) Author Type: Physician Payroll Supervisor Type: Progress Notes Filed: 07/18/2017 8:58 AM Note Text: Patient presents with: Cough: patient is here for cough/sinus x 2 week Sinus Problem 72 year old male with c/o URI sx over the last 14 days with Sore throat: No. Nasal congestion: Yes. Nasal drip: Yes. Sinus pain/ pressure: Yes. Headache Yes. Body aches Yes. Ear pain: No. Cough: Yes. Production: Yes. Yellow to clear Shortness of Breath: Yes. Wheezing: No. Fever: No. Tmax n/a. Hx asthma No. Hx pneumonia No. Smoker: former smoker. Quit 15 years ago OTC meds tried: Taking OTC coricidin HTN with symptom improvement ACTIVE PROBLEM LIST Hallux valgus (acquired) Ventral Hernia, Unspecified, Without Mention of Obstruction Or Gangrene Mixed Hyperlipidemia Malignant Neoplasm of Prostate (Hcc) Irregular Heart Beat Well Adult Exam Fibromyalgia Agitation Generalized Oa Colon Cancer Screening Renal Cyst Status Post Radiation Therapy Microscopic Hematuria Rheumatoid Arthritis Involving Multiple Sites (Hcc) Medicare Annual Wellness Visit, Subsequent Elevated Fasting Blood Sugar Current Outpatient Prescriptions: hydroxychloroquine (PLAQUENIL) 200 mg tablet Take 1 tablet by mouth twice daily. Disp: Rfl: methotrexate 2.5 mg tablet Take 8 tablets by mouth once each week. Disp: Rfl: gabapentin (NEURONTIN) 300 mg capsule Take 1 capsule by mouth daily at bedtime. Disp: 90 capsule Rfl: 3 Cholecalciferol, Vitamin D3, 5,000 unit cap Take 1 capsule by mouth once daily. Disp: Rfl: 0 folic acid 1 mg tablet Take 2 mg by mouth once daily. Disp: Rfl: Xutmk-8-IGR-EPA-Fish Oil (FISH OIL) 1,000 mg (120 mg-180 mg) cap Take 1 g by mouth once daily. Disp: Rfl: meloxicam (MOBIC) 15 mg tablet Take 1 tablet by mouth once daily. Disp: 30 tablet Rfl: 0 fluticasone (FLONASE) 50 mcg/actuation nasal spray Use 1 [place] in each nostril once daily. Rinse mouth after use. Disp: 3 Bottle Rfl: 3 GUAIFENESIN/DEXTROMETHORPHAN (CORICIDIN HBP ORAL) Take by mouth as needed. Disp: Rfl: GLUCOSAMINE HCL/CHONDR MONAE A NA (GLUCOSAMINE-CHONDROITIN) 750- 600 mg tab Take 2 tablets by mouth once daily. Disp: Rfl: 0 acetaminophen (TYLENOL ARTHRITIS) 650 mg CR tablet Take 1,300 mg by mouth every 8 hours as needed. Disp: Rfl: predniSONE (DELTASONE) 10 mg tablet Prn Disp: Rfl: Salud's Wort 300 mg cap Take 300 mg by mouth three times daily. Disp: 270 capsule Rfl: 3 No current facility-administered medications for this visit. ROS: SEE HPI OBJECTIVE: BP 106/64 (BP Site: Left Arm, BP Position: Sitting, BP Cuff Size: Large Adult) Pulse 72 Resp 14 Wt 108.9 kg (240 lb) BMI 28.46 kg/m? General appearance: Well appearing, alert, in no acute distress, well-hydrated, well nourished., Head: Normocephalic, no masses, lesions, tenderness or abnormalities; Ears: External ears normal, canals clear, TM's normal Nose/Sinuses: Positive findings: mucosa erythematous and swollen, Sinus pain to palp Oropharynx: Lips, mucosa, and tongue normal, teeth and gums normal, oropharynx normal Neck: Supple, no adenopathy; Lungs: Lungs clear to auscultation. No wheezing, rhonchi, rales Heart: RRR without murmur, gallop, or rubs. No ectopy ASSESSMENT/PLAN: 1. Bacterial sinusitis - ICD9: 473.9, 041.9, ICD10: J32.9, B96.89 (primary diagnosis) - Will begin treatment with duricef 2. Bronchitis - ICD9: 490, ICD10: J40 Consider CXR if no improvement with antibiotic Follow up as needed. Prescription instructions reviewed with patient as applicable. Patient advised if symptoms do not improve or if symptoms worsen sooner, to contact their primary care physician. Potential red flag symptoms discussed with the patient. Reviewed appropriate action plan to take if red flag symptoms occur. Patient agreeable to treatment plan. JULIO CÉSAR GONZALES Observed: 07/18/2017 Status: COMPLETED Source: [place] 8:40 AM [facility] REPOSITORY Office Visit ([facility]) LORNA MARTINS ([id number]) 1945 M [facility] Date Time Provider Department 07/18/17 8:40 AM ARLENE ARECHIGA) [facility] During your visit today, we recorded the following information about you: Pulse Respiration Blood pressure Weight 72/minute 14/minute 106/64 108.9 kg JOE ARECHIGA PA-C 07/18/2017 8:58 AM Signed Patient presents with: Cough: patient is here for cough/sinus x 2 week Sinus Problem 72 year old male with c/o URI sx over the last 14 days with Sore throat: No. Nasal congestion: Yes. Nasal drip: Yes. Sinus pain/ pressure: Yes. Headache Yes. Body aches Yes. Ear pain: No. Cough: Yes. Production: Yes. Yellow to clear Shortness of Breath: Yes. Wheezing: No. Fever: No. Tmax n/a. Hx asthma No. Hx pneumonia No. Smoker: former smoker. Quit 15 years ago OTC meds tried: Taking OTC coricidin HTN with symptom improvement ACTIVE PROBLEM LIST Hallux valgus (acquired) Ventral Hernia, Unspecified, Without Mention of Obstruction Or Gangrene Mixed Hyperlipidemia Malignant Neoplasm of Prostate (Hcc) Irregular Heart Beat Well Adult Exam Fibromyalgia Agitation Generalized Oa Colon Cancer Screening Renal Cyst Status Post Radiation Therapy Microscopic Hematuria Rheumatoid Arthritis Involving Multiple Sites (Hcc) Medicare Annual Wellness Visit, Subsequent Elevated Fasting Blood Sugar Current Outpatient Prescriptions: hydroxychloroquine (PLAQUENIL) 200 mg tablet Take 1 tablet by mouth twice daily. Disp: Rfl: methotrexate 2.5 mg tablet Take 8 tablets by mouth once each week. Disp: Rfl: gabapentin (NEURONTIN) 300 mg capsule Take 1 capsule by mouth daily at bedtime. Disp: 90 capsule Rfl: 3 Cholecalciferol, Vitamin D3, 5,000 unit cap Take 1 capsule by mouth once daily. Disp: Rfl: 0 folic acid 1 mg tablet Take 2 mg by mouth once daily. Disp: Rfl: Qjxrk-6-LVU-EPA-Fish Oil (FISH OIL) 1,000 mg (120 mg-180 mg) cap Take 1 g by mouth once daily. Disp: Rfl: meloxicam (MOBIC) 15 mg tablet Take 1 tablet by mouth once daily. Disp: 30 tablet Rfl: 0 fluticasone (FLONASE) 50 mcg/actuation nasal spray Use 1 [place] in each nostril once daily. Rinse mouth after use. Disp: 3 Bottle Rfl: 3 GUAIFENESIN/DEXTROMETHORPHAN (CORICIDIN HBP ORAL) Take by mouth as needed. Disp: Rfl: GLUCOSAMINE HCL/CHONDR MONAE A NA (GLUCOSAMINE-CHONDROITIN) 750- 600 mg tab Take 2 tablets by mouth once daily. Disp: Rfl: 0 acetaminophen (TYLENOL ARTHRITIS) 650 mg CR tablet Take 1,300 mg by mouth every 8 hours as needed. Disp: Rfl: predniSONE (DELTASONE) 10 mg tablet Prn Disp: Rfl: Salud's Wort 300 mg cap Take 300 mg by mouth three times daily. Disp: 270 capsule Rfl: 3 No current facility-administered medications for this visit. ROS: SEE HPI OBJECTIVE: BP 106/64 (BP Site: Left Arm, BP Position: Sitting, BP Cuff Size: Large Adult) Pulse 72 Resp 14 Wt 108.9 kg (240 lb) BMI 28.46 kg/m? General appearance: Well appearing, alert, in no acute distress, well-hydrated, well nourished., Head: Normocephalic, no masses, lesions, tenderness or abnormalities; Ears: External ears normal, canals clear, TM's normal Nose/Sinuses: Positive findings: mucosa erythematous and swollen, Sinus pain to palp Oropharynx: Lips, mucosa, and tongue normal, teeth and gums normal, oropharynx normal Neck: Supple, no adenopathy; Lungs: Lungs clear to auscultation. No wheezing, rhonchi, rales Heart: RRR without murmur, gallop, or rubs. No ectopy ASSESSMENT/PLAN: 1. Bacterial sinusitis - ICD9: 473.9, 041.9, ICD10: J32.9, B96.89 (primary diagnosis) - Will begin treatment with duricef 2. Bronchitis - ICD9: 490, ICD10: J40 Consider CXR if no improvement with antibiotic Follow up as needed. Prescription instructions reviewed with patient as applicable. Patient advised if symptoms do not improve or if symptoms worsen sooner, to contact their primary care physician. Potential red flag symptoms discussed with the patient. Reviewed appropriate action plan to take if red flag symptoms occur. Patient agreeable to treatment plan. JULIO CÉSAR GONZALES PA-C 07/18/2017 8:55 AM Signed Follow up in 5-7 days if no improvement. Take all of the antibiotic as directed per prescription. If you should breakout in a rash, stop the medicine and call the office. Any antibiotic has the potential to cause diarrhea due to alteration in the normal bacterial sheree of the gut. This can be reduced by eating yogurt with active cultures daily while on the medication. If diarrhea becomes severe (watery, large volumes or more than 3-4/day) call the office. Women may experience yeast vaginitis due to alteration in the vaginal sheree. Symptoms include vaginal itching, irritation, and often a clumpy white discharge. If this occurs, there are several effective over the counter remedies available, including one-dose treatments. If these are unsuccessful, call the office. Antibiotics may interfer with control. If you are on oral contraceptives, use another form of protection (condoms, foams, jellies, diaphragm) for the next 1 month. JOE ARECHIGA PA-C Referring Provider: WINSTON LANGFORD [[id number]] Allergies As of Date: 07/18/2017 Noted Allergy Reaction PENICILLINS 08/17/2006 4 - Hives Date Reviewed: 07/18/2017 Reviewed by: Bev Macias Ma - Fully Assessed Reason for Visit: Cough [28] Cmt: patient is here for cough/sinus x 2 week Sinus Problem [99] Primary Visit Diagnosis:Bacterial sinusitis [J32.9, B96.89] Other Visit Diagnosis:Bronchitis [J40] Order(s):cefADROxil (DURICEF) 500 mg capsuleTake 1 capsule by mouth twice daily for 10 days.Disp: 20 capsuleRfl: 0 Prescriptions as of 07/18/2017 Sig: HYDROXYCHLOROQUINE 200 MG TAB* Take 1 tablet by mouth twice * METHOTREXATE SODIUM 2.5 MG TA* Take 8 tablets by mouth once * GABAPENTIN 300 MG CAPSULE Take 1 capsule by mouth daily* CHOLECALCIFEROL (VITAMIN D3) * Take 1 capsule by mouth once * FOLIC ACID 1 MG TABLET Take 2 mg by mouth once daily. OMEGA 7-MAF-JUO-FISH OIL 1,00* Take 1 g by mouth once daily. MELOXICAM 15 MG TABLET Take 1 tablet by mouth once d* FLUTICASONE 50 MCG/ACTUATION * Use 1 [place] in each nostril o* CORICIDIN HBP ORAL Take by mouth as needed. GLUCOSAMINE-CHONDROITIN 750 M* Take 2 tablets by mouth once * ACETAMINOPHEN ER 650 MG TABLE* Take 1,300 mg by mouth every * CEFADROXIL 500 MG CAPSULE Take 1 capsule by mouth twice* PREDNISONE 10 MG TABLET Prn SALUD'S WORT 300 MG CAPSULE Take 300 mg by mouth three ti* Problem List As Of Date 07/18/2017 Noted Resolved Hallux valgus (acquired) [M20.10] INVALID FOR* Priority: M Ventral hernia, unspecified, without mention of*INVALID FOR* Priority: C Mixed hyperlipidemia [E78.2] Priority: A Malignant neoplasm of prostate (HCC) [C61] Priority: B More... Irregular heart beat [I49.9] Priority: A More... Well adult exam [Z00.00] INVALID FOR* Priority: E More... Fibromyalgia [M79.7] INVALID FOR* Priority: B Agitation [R45.1] INVALID FOR* Priority: A Generalized OA [M15.9] INVALID FOR* Priority: M More... 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 Medicare annual wellness visit, subsequent [Z00*INVALID FOR* Priority: E More... Elevated fasting blood sugar [R73.01] INVALID FOR* Priority: A Other instructions from your clinician: Follow up in 5-7 days if no improvement. Take all of the antibiotic as directed per prescription. If you should breakout in a rash, stop the medicine and call the office. Any antibiotic has the potential to cause diarrhea due to alteration in the normal bacterial sheree of the gut. This can be reduced by eating yogurt with active cultures daily while on the medication. If diarrhea becomes severe (watery, large volumes or more than 3-4/day) call the office. Women may experience yeast vaginitis due to alteration in the vaginal sheree. Symptoms include vaginal itching, irritation, and often a clumpy white discharge. If this occurs, there are several effective over the counter remedies available, including one-dose treatments. If these are unsuccessful, call the office. Antibiotics may interfer with control. If you are on oral contraceptives, use another form of protection (condoms, foams, jellies, diaphragm) for the next 1 month. JOE ARECHIGA PA-C Prescriptions ordered this encounter Disp Refills Start End CEFADROXIL 500 MG CAPSULE 20 c* 0 07/18/2017 07/28/2017 Route: ORAL Sig: Take 1 capsule by mouth twice daily for 10 days. Disposition: Return if symptoms worsen or fail to improve. Follow-up and Disposition History Recorded Encounter Status:Closed by JOE AREVALO on 07/18/17 PROGRESS Observed: 06/06/2017 Status: COMPLETED Source: [place] 9:17 AM [facility] REPOSITORY O ID: [id number] Author: Tristan Santos Service: (none) Author Type: Physician Type: Progress Notes Filed: 06/06/2017 9:27 AM Note Text: Diagnosis: 1) Prostate cancer HPI: The patient is a 72 yo male who had an abnormal HANNAH done on a routine PE by his PCP in 2008. Was referred to a urologist who performed biopsy. Pathology significant for Dimitris score 5+4 on the right and 3+3 on the left. PSA was 5.5 ng/ml. He was referred to [facility] and enrolled in the CAL (82803; [facility]) trial. Received 6 cycles neoadjuvant docetaxel along with GnRH therapy. Completed the 6 cycles with dose reduction after first cycle due to a flare of FM pain in legs. Underwent robotic radical prostatectomy on 06/29/2009. Pathology revealed Henderson 3+5 adenocarcinoma involving 8% of the gland b/l; multifocal extraprostatic extension and seminal vesical involvement. Margins were negative and nodes negative (pT3bN0). Had PSA<0.01 12/2009-09/2010. Most recent evaluation at [facility] prior to transfer here 0.04 ng/ml. CT and bone scan indicated no radiographic evidence metastatic disease. Then went on to complete salvage RT 06/29/2014. PSA showed an increased just prior to establishing care here. Current therapy: 1) GnRH injection (Zoladex). Intermittent suppression strategy. Presents for ongoing oncologic management. Interim history: Was changed to Lupron due to formulary change last fall. Didn't tolerate well--lethargy and mood change. Rotated back to Zoladex monthly in 02/2017. Better now. Frequent hot flashes last week prior to next injection. Urinating without symptoms of dysuria, frequency. Rare nocturia. Pain from FM same. PMH, medications and allergies as below personally reviewed by me today. Any changes documented in appropriate section. ROS: Constitutional: Denies episodes of fever and night sweats. Neuro: Denies JIMENES, vertigo and imbalance. No symptoms of neuropathy. HEENT: No recent change in voice, vision or hearing. Resp: Denies cough, wheeze and hemoptysis. No shortness of breath at rest. No MEYER. CVS: Denies exertional chest pain, PND, orthopnea and LE edema. GI: Denies reflux, n/v, change in bowel habits and abdominal pain. No symptoms of stomatitis. : See above. Endo: See above. Derm: No rash. MS: See above. Heme: No unusual bleeding or bruising. Psych: Normal mood. PHYSICAL EXAM: Vitals: Blood pressure 126/81, pulse 62, temperature 36.4 ?C (97.6 ?F), temperature source Temporal Artery, weight 112.9 kg (249 lb). Well-appearing and in no acute distress. EYES: Sclerae are anicteric bilaterally. NECK: Supple. No enlargement of thyroid. LYMPHATIC: There is no palpable cervical, supraclavicular or axillary adenopathy. RESPIRATORY: Inspiratory breath sounds are of normal intensity in all edouard. No rales, wheezes or rhonchi. CARDIOVASCULAR: Rhythm is regular. Normal intensity S1/S2. There is no gallop or murmur. ABDOMEN: The abdomen is nondistended. There is no organomegaly. No tenderness. Extremities: Free of edema. SKIN: No jaundice or rash. No petechiae. NEUROLOGIC: supervisor fitting II-XII are grossly intact. No focal motor weakness. ASSESSMENT/PLAN: 1) High risk prostate cancer. Rising PSA following neoadjuvant ADT/Taxotere on clinical trial at [facility]. s/p salvage radiation. No concerning symptoms or exam findings. -Tolerating and responding well to GnRH therapy. -Discussed therapy with respect to ongoing QOL vs benefit. He prefers to stay on therapy without intermittent dosing. -Sees dentist annually. No dental symptoms. Plan: -Monitor PSA every 3 months. -Monthly Zoladex. -Prolia q 6 months. Tristan Santos DO CNOVSP Observed: 06/06/2017 Status: COMPLETED Source: [place] 9:10 AM [facility] REPOSITORY Visit (SP) Office ([place]) LORNA MARTINS ([id number]) 1945 M [facility] Date Time Provider Department 06/06/17 9:10 AM TRISTAN SANTOS During your visit today, we recorded the following information about you: Temperature Pulse Blood pressure Weight 97.6 degrees 62/minute 126/81 112.9 kg Tristan Santos DO 06/06/2017 9:27 AM Signed Diagnosis: 1) Prostate cancer HPI: The patient is a 72 yo male who had an abnormal HANNAH done on a routine PE by his PCP in 2008. Was referred to a urologist who performed biopsy. Pathology significant for Henderson score 5+4 on the right and 3+3 on the left. PSA was 5.5 ng/ml. He was referred to [facility] and enrolled in the CAL (06811; [facility]) trial. Received 6 cycles neoadjuvant docetaxel along with GnRH therapy. Completed the 6 cycles with dose reduction after first cycle due to a flare of FM pain in legs. Underwent robotic radical prostatectomy on 06/29/2009. Pathology revealed Henderson 3+5 adenocarcinoma involving 8% of the gland b/l; multifocal extraprostatic extension and seminal vesical involvement. Margins were negative and nodes negative (pT3bN0). Had PSAANDlt;0.01 12/2009-09/2010. Most recent evaluation at [facility] prior to transfer here 0.04 ng/ml. CT and bone scan indicated no radiographic evidence metastatic disease. Then went on to complete salvage RT 06/29/2014. PSA showed an increased just prior to establishing care here. Current therapy: 1) GnRH injection (Zoladex). Intermittent suppression strategy. Presents for ongoing oncologic management. Interim history: Was changed to Lupron due to formulary change last fall. Didn't tolerate well--lethargy and mood change. Rotated back to Zoladex monthly in 02/2017. Better now. Frequent hot flashes last week prior to next injection. Urinating without symptoms of dysuria, frequency. Rare nocturia. Pain from FM same. PMH, medications and allergies as below personally reviewed by me today. Any changes documented in appropriate section. ROS: Constitutional: Denies episodes of fever and night sweats. Neuro: Denies JIMENES, vertigo and imbalance. No symptoms of neuropathy. HEENT: No recent change in voice, vision or hearing. Resp: Denies cough, wheeze and hemoptysis. No shortness of breath at rest. No MEYER. CVS: Denies exertional chest pain, PND, orthopnea and LE edema. GI: Denies reflux, n/v, change in bowel habits and abdominal pain. No symptoms of stomatitis. : See above. Endo: See above. Derm: No rash. MS: See above. Heme: No unusual bleeding or bruising. Psych: Normal mood. PHYSICAL EXAM: Vitals: Blood pressure 126/81, pulse 62, temperature 36.4 ?C (97.6 ?F), temperature source Temporal Artery, weight 112.9 kg (249 lb). Well-appearing and in no acute distress. EYES: Sclerae are anicteric bilaterally. NECK: Supple. No enlargement of thyroid. LYMPHATIC: There is no palpable cervical, supraclavicular or axillary adenopathy. RESPIRATORY: Inspiratory breath sounds are of normal intensity in all edouard. No rales, wheezes or rhonchi. CARDIOVASCULAR: Rhythm is regular. Normal intensity S1/S2. There is no gallop or murmur. ABDOMEN: The abdomen is nondistended. There is no organomegaly. No tenderness. Extremities: Free of edema. SKIN: No jaundice or rash. No petechiae. NEUROLOGIC: supervisor fitting II-XII are grossly intact. No focal motor weakness. ASSESSMENT/PLAN: 1) High risk prostate cancer. Rising PSA following neoadjuvant ADT/Taxotere on clinical trial at [facility]. s/p salvage radiation. No concerning symptoms or exam findings. -Tolerating and responding well to GnRH therapy. -Discussed therapy with respect to ongoing QOL vs benefit. He prefers to stay on therapy without intermittent dosing. -Sees dentist annually. No dental symptoms. Plan: -Monitor PSA every 3 months. -Monthly Zoladex. -Prolia q 6 months. DO Inez Batista LPN, JAYDEN 06/06/2017 9:43 AM Signed Zoladex injection administered, right lower quad, tolerated well, no immediate adverse reactions noted. Inez Loya LPN Referring Provider: TRISTAN SANTOS [[id number]] Allergies As of Date: 06/06/2017 Noted Allergy Reaction PENICILLINS 08/17/2006 4 - Hives Date Reviewed: 06/06/2017 Reviewed by: Claudette Mckinney - Fully Assessed Reason for Visit: Established Patient [175] Primary Visit Diagnosis:Malignant neoplasm of prostate (HCC) [C61] Other Visit Diagnosis:Vitamin D deficiency [E55.9] Order(s):VITAMIN D 25 HYDROXY [SQVITD] Order #: [id number] FUTURE Follow-up and Disposition History Recorded Prescriptions as of 06/06/2017 Sig: HYDROXYCHLOROQUINE 200 MG TAB* Take 1 tablet by mouth twice * METHOTREXATE SODIUM 2.5 MG TA* Take 8 tablets by mouth once * PREDNISONE 10 MG TABLET Prn GABAPENTIN 300 MG CAPSULE Take 1 capsule by mouth daily* CHOLECALCIFEROL (VITAMIN D3) * Take 1 capsule by mouth once * FOLIC ACID 1 MG TABLET Take 2 mg by mouth once daily. OMEGA 4-AXO-OTM-FISH OIL 1,00* Take 1 g by mouth once daily. MELOXICAM 15 MG TABLET Take 1 tablet by mouth once d* SALUD'S WORT 300 MG CAPSULE Take 300 mg by mouth three ti* FLUTICASONE 50 MCG/ACTUATION * Use 1 [place] in each nostril o* CORICIDIN HBP ORAL Take by mouth as needed. GLUCOSAMINE-CHONDROITIN 750 M* Take 2 tablets by mouth once * ACETAMINOPHEN ER 650 MG TABLE* Take 1,300 mg by mouth every * Medication notes this encounter PREDNISONE 10 MG TABLET >> Claudette Mckinney MA 06/06/2017 8:56 AM >> CLAUDETTE MCKINNEY MA SunJun 06, 2017 8:56 AM as necessary Problem List As Of Date 06/06/2017 Noted Resolved Hallux valgus (acquired) [M20.10] INVALID FOR* Priority: M Ventral hernia, unspecified, without mention of*INVALID FOR* Priority: C Mixed hyperlipidemia [E78.2] Priority: A Malignant neoplasm of prostate (HCC) [C61] Priority: B More... Irregular heart beat [I49.9] Priority: A More... Well adult exam [Z00.00] INVALID FOR* Priority: E More... Fibromyalgia [M79.7] INVALID FOR* Priority: B Agitation [R45.1] INVALID FOR* Priority: A Generalized OA [M15.9] INVALID FOR* Priority: M More... 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 Medicare annual wellness visit, subsequent [Z00*INVALID FOR* Priority: E More... Elevated fasting blood sugar [R73.01] INVALID FOR* Priority: A Visit Notes: >> Inez Loya LPN SunJun 06, 2017 9:40 AM Status: Signed Zoladex injection administered, right lower quad, tolerated well, no immediate adverse reactions noted. Inez Loya LPN Encounter Status:Closed by TRISTAN SANTOS DO on 06/06/17 PSA, DIAGNOSTIC Collected: 06/05/2017 Status: F Source: [place] 8:57 AM [facility] [place] REPOSITORY TYPE CODE TESTS RESULT OUT OF REFERENCE UNITS RANGE LAB PSA 0.00-2.59 ng/mL PSA, Diagnostic <0.03 Result Comment: Total PSA test methodology used is the Electrochemiluminescence Immunoassay. For an individual patient, the significance of a PSA level should be interpreted in a broad clinical context, including age, race, family history, digital rectal exam, prostate size, results of prior te sting (prostate biopsy, free PSA, PCA3), and use of 5-alpha reductase inhibitors. Considering the high incidence of asymptomatic cancer in the general population that may not pose an ultimate risk to a patient, the decision to recommend urological evaluation or prostate biopsy should be individualized after consideration of all these factors. REFERENCE: Nayla George M.D., M.P.H., Caleb Adam M.D., Ph.D., Cristobal Gavin M.D., Ada Cadena M.P.H., Lorena Ibarra, Sc.D. Effect of Verification Bias on Screening for Prostate Cancer by Measurement of Prostatic Specific Antigen. N Engl J Med 2003,349:335-42. Performed By: #### PSA #### [facility] [address], [place] [address] PSA, DIAGNOSTIC Collected: 05/09/2017 Status: F Source: [place] 9:15 AM [facility] REPOSITORY TYPE CODE TESTS RESULT OUT OF REFERENCE UNITS RANGE LAB PSA 0.00-2.59 ng/mL PSA, Diagnostic <0.03 Result Comment: Total PSA test methodology used is the Electrochemiluminescence Immunoassay. For an individual patient, the significance of a PSA level should be interpreted in a broad clinical context, including age, race, family history, digital rectal exam, prostate size, results of prior te sting (prostate biopsy, free PSA, PCA3), and use of 5-alpha reductase inhibitors. Considering the high incidence of asymptomatic cancer in the general population that may not pose an ultimate risk to a patient, the decision to recommend urological evaluation or prostate biopsy should be individualized after consideration of all these factors. REFERENCE: Nayla George M.D., M.P.H., Caleb Adam M.D., Ph.D., Cristobal Gavin M.D., Ada Cadena M.P.H., Lorena Ibarra, Sc.D. Effect of Verification Bias on Screening for Prostate Cancer by Measurement of Prostatic Specific Antigen. N Engl J Med 2003,349:335-42. Performed By: #### PSA #### [facility] [address], [place] [address] CBC W/DIFF, AUTOMATED Collected: 04/25/2017 Status: F Source: [place] 9:28 AM [facility] REPOSITORY TYPE CODE TESTS RESULT OUT OF RANGE REFERENCE UNITS LAB L100.1000 4.4-11.0 K/mm3 Low WBC 3.8 LAB L100.1200 4.6-6.2 M/mm3 Low RBC 4.14 LAB L100.1300 13.0-16.5 g/dl Normal HGB 13.0 LAB L100.1400 40-54 % Normal HCT 40.9 LAB L100.1500 80-94 fL High MCV 98.8 LAB L100.1600 27.0-32.0 pg Normal MCH 31.4 LAB L100.1700 32-36 g/gl Low MCHC 31.8 LAB L100.1810 11.6-14.6 % Normal RDW CV 14.2 LAB L100.1820 35.1-43.9 fl High RDW SD 49.5 LAB L100.1900 150-450 K/mm3 Normal PLT 186 LAB L100.2000 6.2-12.0 fl Normal MPV 11.8 LAB L100.2100 47-70 % Low NEUT% 42.7 LAB L100.2200 19-41 % Normal LY% 26.5 LAB L100.2300 0-10 % High MONO% 18.0 LAB L100.2400 0-5 % High EO% 9.8 LAB L100.2500 0-1 % High BASO% 2.7 LAB L100.2550 0.0-0.9 % Normal IM GRAN % 0.300 Result Comment: IG% - Immature Granulocytes (promyelocytes, myelocytes and metamyelocytes) > 1% indicates that a LEFT SHIFT is Present. LAB L100.2620 2.0-7.7 X10 3/uL Low Absolute Neut 1.6 LAB L100.2720 0.83-4.51 X10 3/ul Normal Absolute Lymph 1.00 Performed By: #### L100.0100 #### [facility] [address] [place], [place], [address] COMPREHENSIVE METABOLIC Collected: 04/25/2017 Status: F Source: [facility] 9:28 AM [facility] REPOSITORY TYPE CODE TESTS RESULT OUT OF RANGE REFERENCE UNITS LAB L501.0100 74-106 mg/dL High GLU 110 Result Comment: Fasting Glucose result from 100 to 125 mg/dL suggests IMPAIRED HOMEOSTASIS per A.D.A. criteria. Please note revised GLUCOSE reference range effective 2017. LAB L501.1000 7-18 mg/dL Normal BUN 17 LAB L501.1100 0.70-1.30 mg/dL Normal CREAT,SERUM 0.96 Result Comment: The validity of the calculated GFR AND GFRAA in patients over 70 years has not been determined. Clinical correlation is essential. LAB L501.1110 >60 mL/min Normal EST GFR 82 Result Comment: Non- GFR Calc LAB L501.1115 >60 mL/min Normal EST GFR - AA 100 Result Comment: GFR Calc LAB L501.1300 10-20 RATIO Normal BUN/CRE 17.8 LAB L501.1500 6.4-8.2 g/dL T Normal PROT 7.4 LAB L501.1800 3.2-5.0 g/dL Normal ALB 3.6 LAB L501.1950 2.2-4.2 g/dL Normal GLOB 3.8 LAB L501.2000 0.9-2.4 RATIO Normal A/G 0.9 LAB L501.2200 8.5-10.1 mg/dL CA Normal 8.7 LAB L501.4100 15-37 U/L Normal AST 18 LAB L501.4305 45-117 U/L Normal ALK P 60 LAB L501.4405 16-61 U/L Normal ALT 23 Result Comment: Please note revised ALT reference range effective 2017. LAB L501.4600 0.20-1.00 mg/dL Normal T BILI 0.60 LAB L501.5300 136-145 mmol/L Normal NA 141 LAB L501.5600 3.5-5.1 mmol/L Normal K 4.0 LAB L501.5900 98-107 mmol/L Normal CL 107 LAB L501.6100 21.0-32.0 mmol/L Normal CO2 26.0 LAB L501.6200 5-15 Normal GAP 8 Performed By: #### L500.4050 #### [facility] [place], [address] PSA, DIAGNOSTIC Collected: 04/03/2017 Status: F Source: [place] 8:26 AM [facility] REPOSIT[facility] TYPE CODE TESTS RESULT OUT OF REFERENCE UNITS RANGE LAB PSA 0.00-2.59 ng/mL PSA, Diagnostic <0.03 Result Comment: Total PSA test methodology used is the Electrochemiluminescence Immunoassay. For an individual patient, the significance of a PSA level should be interpreted in a broad clinical context, including age, race, family history, digital rectal exam, prostate size, results of prior te sting (prostate biopsy, free PSA, PCA3), and use of 5-alpha reductase inhibitors. Considering the high incidence of asymptomatic cancer in the general population that may not pose an ultimate risk to a patient, the decision to recommend urological evaluation or prostate biopsy should be individualized after consideration of all these factors. REFERENCE: Nayla George M.D., M.P.H., Caleb Adam M.D., Ph.D., Cristobal Gavin M.D., Ada Cadena, M.P.H., Lorena Ibarra, Sc.D. Effect of Verification Bias on Screening for Prostate Cancer by Measurement of Prostatic Specific Antigen. N Engl J Med 2003,349:335-42. Performed By: #### PSA #### [facility] [address] [place], [place] [address] PSA, DIAGNOSTIC Collected: 03/14/2017 Status: F Source: [place] 9:35 AM [facility] REPOSITORY TYPE CODE TESTS RESULT OUT OF REFERENCE UNITS RANGE LAB PSA 0.00-2.59 ng/mL PSA, Diagnostic 0.03 Result Comment: Total PSA test methodology used is the Electrochemiluminescence Immunoassay. Performed By: #### PSA #### [facility] [address] [place], [place] [address] HOSP Observed: 03/14/2017 Status: COMPLETED Source: [place] 9:30 AM [facility] ([facility]) LORNA MARTINS ([id number]) 1945 Did[address] SUTTON Date Time Provider Department 03/14/17 9:30 AM INJECTION [facility] During your visit today, we recorded the following information about you: Temperature Pulse Weight 97.8 degrees 62/minute 113.4 kg Inez Loya LPN, JAYDEN 03/14/2017 10:13 AM Signed Zoladex,left lower quad, injection administered, tolerated well, no immediate adverse reactions noted. Inez Loya LPN Referring Provider: TRISTAN SANTOS [[id number]] Allergies As of Date: 03/14/2017 Noted Allergy Reaction PENICILLINS 08/17/2006 4 - Hives Date Reviewed: 03/14/2017 Reviewed by: Inez Farris (Jayden) JAYDEN Loya - Fully Assessed Primary Visit Diagnosis:Malignant neoplasm of prostate (HCC) [C61] Order(s):[] goserelin 3.6 mg injection (ZOLADEX)Disp: Rfl: NaCl 0.9% iv infusionDisp: Rfl: diphenhydrAMINE 50 mg injection (BENADRYL)Disp: Rfl: hydrocortisone sodium succinate (PF) 100 mg injection (Solu-CORTEF)Disp: Rfl: EPINEPHrine 1 mg/mL (1 mL) 0.3 mg injectionDisp: Rfl: TREATMENT PARAMETER-NOT NEEDED [[id number]] Order #: [id number]: 1 HEMONC NURSING COMMUNICATION [[id number]] Order #: [id number]: 1 STANDING HEMONC NURSING COMMUNICATION [[id number]] Order #: [id number]: 1 STANDING HEMONC NURSING COMMUNICATION [[id number]] Order #: [id number]: 1 STANDING Prescriptions as of 03/14/2017 Sig: HYDROXYCHLOROQUINE 200 MG TAB* Take 1 tablet by mouth twice * METHOTREXATE SODIUM 2.5 MG TA* 10 tablets once each week. GABAPENTIN 300 MG CAPSULE Take 1 capsule by mouth daily* CHOLECALCIFEROL (VITAMIN D3) * Take 1 capsule by mouth once * FOLIC ACID 1 MG TABLET Take 2 mg by mouth once daily. OMEGA 9-EWB-YVP-FISH OIL 1,00* Take 1 g by mouth once daily. MELOXICAM 15 MG TABLET Take 1 tablet by mouth once d* SALUD'S WORT 300 MG CAPSULE Take 300 mg by mouth three ti* FLUTICASONE 50 MCG/ACTUATION * Use 1 [place] in each nostril o* CORICIDIN HBP ORAL Take by mouth as needed. GLUCOSAMINE-CHONDROITIN 750 M* Take 2 tablets by mouth once * ACETAMINOPHEN ER 650 MG TABLE* Take 1,300 mg by mouth every * PREDNISONE 10 MG TABLET Prn Problem List As Of Date 03/14/2017 Noted Resolved Hallux valgus (acquired) [M20.10] INVALID FOR* Priority: M Ventral hernia, unspecified, without mention of*INVALID FOR* Priority: C Mixed hyperlipidemia [E78.2] Priority: A Malignant neoplasm of prostate (HCC) [C61] Priority: B More... Irregular heart beat [I49.9] Priority: A More... Well adult exam [Z00.00] INVALID FOR* Priority: E More... Fibromyalgia [M79.7] INVALID FOR* Priority: B Agitation [R45.1] INVALID FOR* Priority: A Generalized OA [M15.9] INVALID FOR* Priority: M More... 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 Medicare annual wellness visit, subsequent [Z00*INVALID FOR* Priority: E More... Elevated fasting blood sugar [R73.01] INVALID FOR* Priority: A Visit Notes: >> Inez Loya LPN Wed Mar 14, 2017 10:13 AM Status: Signed Zoladex,left lower quad, injection administered, tolerated well, no immediate adverse reactions noted. Inez Loya LPN Prescriptions ordered this encounter Disp Refills Start End GOSERELIN 3.6 MG SUBCUTANEOUS IMPLANT 03/14/2017 03/14/2017 Route: SUBCUTANEOUS SODIUM CHLORIDE 0.9 % INTRAVENOUS SO* 03/14/2017 Cmt: Inform physician Route: INTRAVENOUS DIPHENHYDRAMINE 50 MG/ML INJECTION S* 03/14/2017 Route: INTRAVENOUS HYDROCORTISONE SOD SUCCINATE (PF) 10* 03/14/2017 Route: INTRAVENOUS EPINEPHRINE 1 MG/ML (1 ML) INJECTION* 03/14/2017 Route: INTRAMUSCULA Encounter Status:Closed by INEZ LOYA on 03/14/17 ALLERGIES ALLERGIES DATE TYPE / CODE NAME / CODE REACTION SEVERITY SOURCE 08/17/2006 Drug PENICILLINS HIVES [facility] Class/18010 [address] [place] 1003(SNOMED Repository CT) 08/17/2006 Drug PENICILLINS HIVES [facility] Class/27231 [address] [place] 1003(SNOMED Repository CT) ENCOUNTERS ENCOUNTERS ADMIT/DISCHARGE ACCOUNT ADMITTING ENCOUNTER LOCATION SOURCE NUMBER CLASS 03/06/2018/03/07/[id number] [place] Repository 03/05/2018 [id number] [facility] ing:MTLAB Repository 02/13/2018/02/14/19 [id number] Ambulatory [address] [place] Repository 01/16/2018/01/18/[id number] Repository 12/19/2017/12/21/19 [id number] Ambulatory [address] Repository 12/10/2017 [id number] [facility] ing:MTLAB Repository 11/21/2017/11/22/19 [id number] Ambulatory [address] [place] Repository 11/21/2017/11/24/19 [id number] Ambulatory [address] [place] Repository 11/16/2017/11/17/19 [id number] Ambulatory [address] Repository 10/24/2017/10/26/19 [id number] Ambulatory [address] [place] Repository 10/22/2017 [id number] [facility] ing:MTLAB Repository 10/19/2017 [id number] [facility] ing:MTLAB Repository 09/26/2017/09/28/19 [id number] Ambulatory [address] [place] Repository 08/29/2017/08/30/19 [id number] Ambulatory [address] [place] Repository 08/29/2017/08/31/19 [id number] Ambulatory [address] [place] Repository 08/29/2017/08/30/19 [id number] Ambulatory [address] [place] Repository 08/28/2017/08/30/19 [id number] Ambulatory [address] [place] Repository 08/21/2017/07/10 [id number] Ambulatory [address] [place] Repository 08/01/2017/08/03/19 [id number] Ambulatory [address] [place] Repository 07/23/2017 [id number] [facility] ing:MTLAB Repository 07/18/2017/07/20/19 [id number] Ambulatory [address] [place] Repository 07/04/2017/07/06/19 [id number] Ambulatory [address] [place] Repository 06/06/2017/06/08/19 [id number] Ambulatory [address] [place] Repository 06/06/2017/06/08/19 [id number] Ambulatory [address] [place] Repository 06/05/2017/06/06/19 [id number] Ambulatory [address] [place] Repository 05/09/2017/05/11/19 [id number] Ambulatory [address] [place] Repository 05/09/2017/05/10/19 [id number] Ambulatory [address] [place] Repository 04/25/2017 [id number] [facility] ing:MTLAB Repository 04/11/2017/04/13/19 [id number] Ambulatory [address] [place] Repository 04/03/2017/04/03/19 [id number] Ambulatory [address] [place] Repository 03/14/2017/03/15/19 [id number] Ambulatory [address] [place] Repository 03/14/2017/03/14/19 [id number] Ambulatory [address] [place] Repository PAYERS PAYERS ENCOUNTER GUARANTOR PAYER SUBSCRIBER SOURCE 03/05/2018 LORNA L Primary LORNA Zurita [id number] ANGIE Insurance:HUMANA [place] PPOPolicy [id number] [facility] [address]Tjk: [phone]) Number: Repository [phone] HP) [id number] Date:[id number] [address]YO: 03/05/2018 Secondary NOT GIVENUNK Parminder Insurance:SELF PAY [facility] Number: Effective Repository Date:2018-03-05 12/10/2017 LORNA L Primary LORNA L Parminder [id number] BANE[place] Insurance:HUMANA R[place]HDOB[place] PPOPolicy [id number] [address]Uqy: [phone]) Number: Repository [phone] () [id number] Date:[id number] [address] [place] [id number]: 12/10/2017 Secondary NOT GIVENUNK Parminder Insurance:SELF PAY [facility] Number: Effective Repository Date:2017-12-10 10/22/2017 LORNA L Primary LORNA L Parminder [id number] [place] Insurance:HUMANA R[place]OB[place] PPOPolicy [id number] [id number]: [phone]) Number: Repository [phone] () [id number] Date:[id number] [address]JT: 10/22/2017 Secondary NOT GIVENUNK Parminder Insurance:SELF PAY [facility] Number: Effective Repository Date:2017-10-22 10/19/2017 LRONA L Primary LORNA L Parminder [id number] [place] Insurance:HUMANA [place]OB[place] PPOPolicy [id number] [id number]: [phone]) Number: Repository [phone] () [id number] Date:[id number] [address] [address]XR: 10/19/2017 Secondary NOT GIVENUNK [place] Insurance:SELF PAY [facility] Number: Effective Repository Date:2017-10-19 07/23/2017 Lorna L Primary Lorna L [place] [id number] [place] Insurance:HUMANA RushDOB: [place] PPOPolicy [id number] [address]Ibm: [phone]) Number: Repository [phone] () [id number] Date:[id number] [address]PB: 07/23/2017 Secondary NOT GIVENUNK Parminder Insurance:SELF PAY [facility] Number: Effective Repository Date:2017-07-23 04/25/2017 Lorna Zurita [id number] Angie Insurance:HAIA [place]OB: [place] PPOPolicy [id number] [facility] [address]Yom: [phone]) Number: Repository [phone] HP) [id number] Date:[id number] [address]ZR: 04/25/2017 Secondary NOT GIVENUNK [place] Insurance:SELF PAY [facility] Number: Effective Repository Date:2017-04-25
== END ==
PROVIDERS: Family Provider Family Medicine; PCP Family Medicine; Referring Provider Internal Medicine Rheumatology; Visit Provider Internal Medicine Rheumatology
DX: M06.09 Rheumatoid arthritis without rheumatoid factor, multiple sites (principal); M18.0 Bilateral primary osteoarthritis of first carpometacarpal joints; M21.40 Flat foot [pes planus] (acquired), unspecified foot; M79.7 Fibromyalgia; Z79.899 Other long term (current) drug therapy; Z85.46 Personal history of malignant neoplasm of prostate
CPT/HCPCS: 36415; 80053; 85025

== ENCOUNTER → 2018-05-29 08:08 | Outpatient (CLI) | payer MEDICARE, SELFPAY ==
[2018-05-29 10:09] LABS: Absolute Lymphocyte Count 1.91 X10^3/ul (0.83-4.51); Absolute Neutrophil Count 3.9 X10^3/uL (2.0-7.7); Basophil# 0.06 X10^3/uL; Basophil% 0.9 % (0-1); Eosinophils% 1.5 % (0-5); Hemoglobin 13.3 g/dl (13.0-16.5); Lymphocyte # 1.91 X10^3/ul (4.0); Mean Corp Hgb Conc 32.4 g/gl (32-36); Mean Corpuscular Hgb 31.8 pg (27.0-32.0); Mean Corpuscular Volume 98.1 fL (80-94); Mean Platelet Vol. 12.2 fl (6.2-12.0); Monocyte% 11.7 % (0-10); Neutrophil # 3.94 X10^3/uL (2.7-7.7); Neutrophil % 57.8 % (47-70); POSITIVE COUNT NO; POSITIVE DIFFERENTIAL NO; POSITIVE MORPHOLOGY NO; Platelet Count 189 K/mm3 (150-450); RBC Distribution Width CV 13.8 % (11.6-14.6); RBC Distribution Width SD 49.2 fl (35.1-43.9); Red Blood Count 4.18 M/mm3 (4.6-6.2); White Blood Count 6.8 K/mm3 (4.4-11.0)
[2018-05-29 10:31] LABS: ALB/GLOB Ratio 0.9 RATIO (0.9-2.4); AST(SGOT) 23 U/L (15-37); Alanine Aminotransfer ALT/SGPT 24 U/L (16-61); Albumin, Serum 3.6 g/dL (3.2-5.0); Alkaline Phosphatase 46 U/L (45-117); Anion Gap 7 (5-15); BUN 18 mg/dL (7-18); BUN/Creat Ratio 19.7 RATIO (10-20); Calcium,Total 8.9 mg/dL (8.5-10.1); Chloride 106 mmol/L (98-107); Creatinine, Serum 0.92 mg/dL (0.70-1.30); EST Glomerular Filtration Rate 86 mL/min (>60); Est Glom Filt Rate - Afr Amer 104 mL/min (>60); Globulin 3.9 g/dL (2.2-4.2); Glucose 131 mg/dL (74-106); Potassium 3.6 mmol/L (3.5-5.1); Protein, Total 7.5 g/dL (6.4-8.2); Sodium Level 140 mmol/L (136-145)
== END ==
PROVIDERS: Family Provider Family Medicine; PCP Family Medicine; Referring Provider Internal Medicine Rheumatology; Visit Provider Internal Medicine Rheumatology
DX: M06.09 Rheumatoid arthritis without rheumatoid factor, multiple sites (principal); Z79.899 Other long term (current) drug therapy; M79.7 Fibromyalgia; M18.0 Bilateral primary osteoarthritis of first carpometacarpal joints; M21.40 Flat foot [pes planus] (acquired), unspecified foot; Z85.46 Personal history of malignant neoplasm of prostate
CPT/HCPCS: 36415; 80053; 85025

== ENCOUNTER → 2018-08-27 08:20 | Outpatient (CLI) | payer MEDICARE, SELFPAY ==
[2018-08-27 10:16] LABS: Absolute Lymphocyte Count 1.57 X10^3/uL (0.83-4.51); Absolute Neutrophil Count 2.4 X10^3/uL (2.0-7.7); Basophil# 0.06 X10^3/uL; Basophil% 1.2 % (0-1); Eosinophil# 0.19 X10^3/uL; Eosinophils% 3.8 % (0-5); Hematocrit 42.4 % (40-54); Hemoglobin 13.8 g/dL (13.0-16.5); Lymphocyte # 1.57 X10^3/ul (4.0); Lymphocyte % 31.2 % (19-41); Mean Corp Hgb Conc 32.5 g/dL (32-36); Mean Corpuscular Hgb 31.4 pg (27.0-32.0); Mean Corpuscular Volume 96.4 fL (80-94); Mean Platelet Vol. 12.1 fl (6.2-12.0); Monocyte# 0.83 X10^3/uL; Monocyte% 16.5 % (0-10); Neutrophil # 2.38 X10^3/uL (2.7-7.7); Neutrophil % 47.1 % (47-70); Platelet Count 182 K/mm3 (150-450); RBC Distribution Width CV 13.9 % (11.6-14.6); RBC Distribution Width SD 48.7 fl (35.1-43.9)
[2018-08-27 10:25] LABS: ALB/GLOB Ratio 0.8 RATIO (0.9-2.4); AST(SGOT) 15 U/L (15-37); Alanine Aminotransfer ALT/SGPT 20 U/L (16-61); Albumin, Serum 3.4 g/dL (3.2-5.0); Alkaline Phosphatase 45 U/L (45-117); Anion Gap 2 (5-15); BUN 14 mg/dL (7-18); BUN/Creat Ratio 16.2 RATIO (10-20); Calcium,Total 8.5 mg/dL (8.5-10.1); Chloride 108 mmol/L (98-107); Creatinine, Serum 0.86 mg/dL (0.70-1.30); EST Glomerular Filtration Rate 92 mL/min (>60); Est Glom Filt Rate - Afr Amer 112 mL/min (>60); Globulin 4.1 g/dL (2.2-4.2); Glucose 101 mg/dL (74-106); Potassium 4.2 mmol/L (3.5-5.1); Protein, Total 7.5 g/dL (6.4-8.2); Sodium Level 136 mmol/L (136-145)
== END ==
PROVIDERS: Family Provider Family Medicine; PCP Family Medicine; Referring Provider Internal Medicine Rheumatology; Visit Provider Internal Medicine Rheumatology
DX: M06.09 Rheumatoid arthritis without rheumatoid factor, multiple sites (principal); M79.7 Fibromyalgia; M18.0 Bilateral primary osteoarthritis of first carpometacarpal joints; M21.40 Flat foot [pes planus] (acquired), unspecified foot; Z79.899 Other long term (current) drug therapy; Z85.46 Personal history of malignant neoplasm of prostate
CPT/HCPCS: 36415; 80053; 85025

== ENCOUNTER → 2018-11-06 09:00 | Outpatient (CLI) | payer MEDICARE, SELFPAY ==
[2018-11-06 10:02] LABS: Absolute Lymphocyte Count 1.32 X10^3/uL (0.83-4.51); Absolute Neutrophil Count 1.8 X10^3/uL (2.0-7.7); Basophil# 0.07 X10^3/uL; Basophil% 1.8 % (0-1); Eosinophil# 0.12 X10^3/uL; Hematocrit 41.3 % (40-54); Hemoglobin 13.4 g/dL (13.0-16.5); Lymphocyte # 1.32 X10^3/ul (4.0); Lymphocyte % 33.2 % (19-41); Mean Corp Hgb Conc 32.4 g/dL (32-36); Mean Corpuscular Hgb 31.1 pg (27.0-32.0); Mean Corpuscular Volume 95.8 fL (80-94); Mean Platelet Vol. 12.2 fl (6.2-12.0); Monocyte# 0.63 X10^3/uL; Monocyte% 15.8 % (0-10); NRBC Flagged by Analyzer 0 % (0-5); Neutrophil # 1.83 X10^3/uL (2.7-7.7); Neutrophil % 45.9 % (47-70); Platelet Count 165 K/mm3 (150-450); RBC Distribution Width CV 13.2 % (11.6-14.6); RBC Distribution Width SD 46.2 fl (35.1-43.9); Red Blood Count 4.31 M/mm3 (4.6-6.2)
[2018-11-06 10:26] LABS: ALB/GLOB Ratio 0.8 RATIO (0.9-2.4); AST(SGOT) 17 U/L (15-37); Alanine Aminotransfer ALT/SGPT 21 U/L (16-61); Albumin, Serum 3.4 g/dL (3.2-5.0); Alkaline Phosphatase 46 U/L (45-117); Anion Gap 4 (5-15); BUN 13 mg/dL (7-18); BUN/Creat Ratio 13.3 RATIO (10-20); Calcium,Total 9.1 mg/dL (8.5-10.1); Chloride 105 mmol/L (98-107); Creatinine, Serum 0.98 mg/dL (0.70-1.30); EST Glomerular Filtration Rate 80 mL/min (>60); Est Glom Filt Rate - Afr Amer 96 mL/min (>60); Globulin 4.4 g/dL (2.2-4.2); Glucose 111 mg/dL (74-106); Potassium 4.2 mmol/L (3.5-5.1); Protein, Total 7.8 g/dL (6.4-8.2); Sodium Level 137 mmol/L (136-145)
== END ==
PROVIDERS: Family Provider Family Medicine; PCP Family Medicine; Referring Provider Internal Medicine Rheumatology; Visit Provider Internal Medicine Rheumatology
DX: M06.00 Rheumatoid arthritis without rheumatoid factor, unspecified site (principal); M18.0 Bilateral primary osteoarthritis of first carpometacarpal joints; M72.2 Plantar fascial fibromatosis; M21.40 Flat foot [pes planus] (acquired), unspecified foot; M79.7 Fibromyalgia; Z79.899 Other long term (current) drug therapy; Z85.46 Personal history of malignant neoplasm of prostate
CPT/HCPCS: 36415; 80053; 85025

== ENCOUNTER → 2019-01-15 08:37 | Outpatient (CLI) | payer MEDICARE, SELFPAY ==
[2019-01-15 10:14] LABS: Absolute Lymphocyte Count 1.35 X10^3/uL (0.83-4.51); Absolute Neutrophil Count 1.7 X10^3/uL (2.0-7.7); Basophil# 0.05 X10^3/uL; Basophil% 1.3 % (0-1); Eosinophils% 2.6 % (0-5); Hematocrit 43.6 % (40-54); Hemoglobin 13.9 g/dL (13.0-16.5); Lymphocyte # 1.35 X10^3/ul (4.0); Lymphocyte % 35.1 % (19-41); Mean Corp Hgb Conc 31.9 g/dL (32-36); Mean Corpuscular Hgb 31.1 pg (27.0-32.0); Mean Corpuscular Volume 97.5 fL (80-94); Mean Platelet Vol. 12.2 fl (6.2-12.0); Monocyte% 15.6 % (0-10); NRBC Flagged by Analyzer 0 % (0-5); Neutrophil # 1.74 X10^3/uL (2.7-7.7); Neutrophil % 45.1 % (47-70); Platelet Count 166 K/mm3 (150-450); RBC Distribution Width CV 13.6 % (11.6-14.6); RBC Distribution Width SD 48.2 fl (35.1-43.9); Red Blood Count 4.47 M/mm3 (4.6-6.2); White Blood Count 3.9 K/mm3 (4.4-11.0)
[2019-01-15 10:38] LABS: ALB/GLOB Ratio 0.9 RATIO (0.9-2.4); AST(SGOT) 16 U/L (15-37); Alanine Aminotransfer ALT/SGPT 25 U/L (16-61); Albumin, Serum 3.7 g/dL (3.2-5.0); Alkaline Phosphatase 39 U/L (45-117); Anion Gap 5 (5-15); BUN 16 mg/dL (7-18); BUN/Creat Ratio 17.8 RATIO (10-20); Calcium,Total 9.1 mg/dL (8.5-10.1); Chloride 107 mmol/L (98-107); EST Glomerular Filtration Rate 88 mL/min (>60); Est Glom Filt Rate - Afr Amer 106 mL/min (>60); Globulin 4.1 g/dL (2.2-4.2); Glucose 109 mg/dL (74-106); Protein, Total 7.8 g/dL (6.4-8.2); Sodium Level 140 mmol/L (136-145)
== END ==
PROVIDERS: Family Provider Family Medicine; PCP Family Medicine; Referring Provider Internal Medicine Rheumatology; Visit Provider Internal Medicine Rheumatology
DX: M06.00 Rheumatoid arthritis without rheumatoid factor, unspecified site (principal); M79.7 Fibromyalgia; M18.0 Bilateral primary osteoarthritis of first carpometacarpal joints; M72.2 Plantar fascial fibromatosis; M21.40 Flat foot [pes planus] (acquired), unspecified foot; Z79.899 Other long term (current) drug therapy; Z85.46 Personal history of malignant neoplasm of prostate
CPT/HCPCS: 36415; 80053; 85025

== ENCOUNTER → 2019-04-11 08:39 | Outpatient (CLI) | payer MEDICARE, SELFPAY ==
[2019-04-11 10:22] LABS: Absolute Lymphocyte Count 1.43 X10^3/uL (0.83-4.51); Absolute Neutrophil Count 2.1 X10^3/uL (2.0-7.7); Basophil# 0.06 X10^3/uL; Basophil% 1.3 % (0-1); Eosinophil# 0.17 X10^3/uL; Eosinophils% 3.8 % (0-5); Hematocrit 44.5 % (40-54); Hemoglobin 14.2 g/dL (13.0-16.5); Lymphocyte # 1.43 X10^3/ul (4.0); Lymphocyte % 31.9 % (19-41); Mean Corp Hgb Conc 31.9 g/dL (32-36); Mean Corpuscular Hgb 30.5 pg (27.0-32.0); Mean Corpuscular Volume 95.7 fL (80-94); Mean Platelet Vol. 12.3 fl (6.2-12.0); Monocyte# 0.71 X10^3/uL; Monocyte% 15.8 % (0-10); NRBC Flagged by Analyzer 0 % (0-5); Platelet Count 185 K/mm3 (150-450); RBC Distribution Width CV 13.4 % (11.6-14.6); RBC Distribution Width SD 47.3 fl (35.1-43.9); Red Blood Count 4.65 M/mm3 (4.6-6.2); White Blood Count 4.5 K/mm3 (4.4-11.0)
[2019-04-11 10:32] LABS: ALB/GLOB Ratio 0.8 RATIO (0.9-2.4); AST(SGOT) 17 U/L (15-37); Alanine Aminotransfer ALT/SGPT 27 U/L (16-61); Albumin, Serum 3.5 g/dL (3.2-5.0); Alkaline Phosphatase 42 U/L (45-117); Anion Gap 7 (5-15); BUN 16 mg/dL (7-18); BUN/Creat Ratio 17.3 RATIO (10-20); Calcium,Total 9.2 mg/dL (8.5-10.1); Chloride 104 mmol/L (98-107); Creatinine, Serum 0.92 mg/dL (0.70-1.30); EST Glomerular Filtration Rate 85 mL/min (>60); Est Glom Filt Rate - Afr Amer 103 mL/min (>60); Globulin 4.6 g/dL (2.2-4.2); Glucose 116 mg/dL (74-106); Potassium 4.1 mmol/L (3.5-5.1); Protein, Total 8.1 g/dL (6.4-8.2); Sodium Level 138 mmol/L (136-145)
== END ==
PROVIDERS: PCP Family Medicine; Referring Provider Internal Medicine Rheumatology; Visit Provider Internal Medicine Rheumatology
DX: M06.09 Rheumatoid arthritis without rheumatoid factor, multiple sites (principal); M79.7 Fibromyalgia; M18.0 Bilateral primary osteoarthritis of first carpometacarpal joints; M21.40 Flat foot [pes planus] (acquired), unspecified foot; Z79.899 Other long term (current) drug therapy; Z85.46 Personal history of malignant neoplasm of prostate
CPT/HCPCS: 36415; 80053; 85025

== ENCOUNTER → 2019-07-23 10:51 | Outpatient (CLI) | payer MEDICARE, SELFPAY ==
[2019-07-23 12:35] LABS: Absolute Lymphocyte Count 1.41 X10^3/uL (0.83-4.51); Absolute Neutrophil Count 3.9 X10^3/uL (2.0-7.7); Basophil# 0.09 X10^3/uL; Basophil% 1.4 % (0-1); Eosinophil# 0.28 X10^3/uL; Eosinophils% 4.2 % (0-5); Hematocrit 40.1 % (40-54); Hemoglobin 12.2 g/dL (13.0-16.5); Lymphocyte # 1.41 X10^3/ul (4.0); Lymphocyte % 21.4 % (19-41); Mean Corp Hgb Conc 30.4 g/dL (32-36); Mean Corpuscular Volume 98.5 fL (80-94); Mean Platelet Vol. 11.6 fl (6.2-12.0); Monocyte# 0.89 X10^3/uL; Monocyte% 13.5 % (0-10); NRBC Flagged by Analyzer 0 % (0-5); Platelet Count 399 K/mm3 (150-450); RBC Distribution Width CV 14.2 % (11.6-14.6); RBC Distribution Width SD 50.4 fl (35.1-43.9); Red Blood Count 4.07 M/mm3 (4.6-6.2); White Blood Count 6.6 K/mm3 (4.4-11.0)
[2019-07-23 13:25] LABS: ALB/GLOB Ratio 0.5 RATIO (0.9-2.4); AST(SGOT) 10 U/L (15-37); Alanine Aminotransfer ALT/SGPT 14 U/L (16-61); Alkaline Phosphatase 111 U/L (45-117); Anion Gap 6 (5-15); BUN 17 mg/dL (7-18); BUN/Creat Ratio 17.5 RATIO (10-20); Calcium,Total 9.4 mg/dL (8.5-10.1); Chloride 104 mmol/L (98-107); Creatinine, Serum 0.97 mg/dL (0.70-1.30); EST Glomerular Filtration Rate 80 mL/min (>60); Est Glom Filt Rate - Afr Amer 97 mL/min (>60); Globulin 5.5 g/dL (2.2-4.2); Glucose 138 mg/dL (74-106); Potassium 4.1 mmol/L (3.5-5.1); Protein, Total 8.5 g/dL (6.4-8.2); Sodium Level 136 mmol/L (136-145)
== END ==
PROVIDERS: PCP Family Medicine; Referring Provider Internal Medicine Rheumatology; Visit Provider Internal Medicine Rheumatology
DX: M06.09 Rheumatoid arthritis without rheumatoid factor, multiple sites (principal); M79.7 Fibromyalgia; M18.0 Bilateral primary osteoarthritis of first carpometacarpal joints; M21.40 Flat foot [pes planus] (acquired), unspecified foot; Z79.899 Other long term (current) drug therapy; Z85.46 Personal history of malignant neoplasm of prostate
CPT/HCPCS: 36415; 80053; 85025

== ENCOUNTER → 2019-10-14 08:29 | Outpatient (CLI) | payer MEDICARE, SELFPAY ==
--- NOTE | 2019-10-14 09:00 | RAD_ITS ---
STUDY: X-RAY - PELVIS REASON FOR EXAM: Male, 74 years old. ARTHRITIS, PAIN TECHNIQUE: One view of the pelvis was obtained. COMPARISON: 03/01/2016. FINDINGS: There is a non-specific bowel gas pattern. Normal visualized soft tissue structures. Normal bilateral iliac wings, sacroiliac joints and visualized sacrum. Normal visualized bilateral superior and inferior pubic rami. Normal pubic symphysis. Normal ischial tuberosities. Normal visualized right femoral head. Mild spurring at the right acetabulum. Normal right hip joint. Status post left hip replacement since the previous study. 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 Mild acetabular spurring at the right hip. Electronically Signed: Mynor Fleming DO at 17:36 EDT Tel [phone], Service support ,
[2019-10-14 10:15] LABS: Absolute Lymphocyte Count 1.65 X10^3/uL (0.83-4.51); Absolute Neutrophil Count 3.1 X10^3/uL (2.0-7.7); Basophil# 0.08 X10^3/uL; Basophil% 1.4 % (0-1); Eosinophil# 0.16 X10^3/uL; Eosinophils% 2.9 % (0-5); Hematocrit 38.8 % (40-54); Lymphocyte # 1.65 X10^3/ul (4.0); Lymphocyte % 29.7 % (19-41); Mean Corp Hgb Conc 30.9 g/dL (32-36); Mean Corpuscular Hgb 26.6 pg (27.0-32.0); Mean Platelet Vol. 12.8 fl (6.2-12.0); Monocyte% 10.8 % (0-10); NRBC Flagged by Analyzer 0 % (0-5); Neutrophil # 3.05 X10^3/uL (2.7-7.7); Neutrophil % 54.8 % (47-70); Platelet Count 198 K/mm3 (150-450); RBC Distribution Width CV 17.2 % (11.6-14.6); RBC Distribution Width SD 53.8 fl (35.1-43.9); Red Blood Count 4.51 M/mm3 (4.6-6.2); White Blood Count 5.6 K/mm3 (4.4-11.0)
[2019-10-14 10:38] LABS: ALB/GLOB Ratio 0.6 RATIO (0.9-2.4); AST(SGOT) 18 U/L (15-37); Alanine Aminotransfer ALT/SGPT 16 U/L (16-61); Alkaline Phosphatase 58 U/L (45-117); Anion Gap 6 (5-15); BUN 10 mg/dL (7-18); BUN/Creat Ratio 9.5 RATIO (10-20); Calcium,Total 10.1 mg/dL (8.5-10.1); Chloride 99 mmol/L (98-107); Creatinine, Serum 1.05 mg/dL (0.70-1.30); EST Glomerular Filtration Rate 73 mL/min (>60); Est Glom Filt Rate - Afr Amer 89 mL/min (>60); Globulin 4.7 g/dL (2.2-4.2); Glucose 133 mg/dL (74-106); Potassium 3.1 mmol/L (3.5-5.1); Protein, Total 7.7 g/dL (6.4-8.2); Sodium Level 136 mmol/L (136-145)
== END ==
PROVIDERS: PCP Family Medicine; Referring Provider Internal Medicine Rheumatology; Visit Provider Internal Medicine Rheumatology
DX: M06.09 Rheumatoid arthritis without rheumatoid factor, multiple sites (principal); Z79.899 Other long term (current) drug therapy; M79.7 Fibromyalgia; M18.0 Bilateral primary osteoarthritis of first carpometacarpal joints; M21.40 Flat foot [pes planus] (acquired), unspecified foot; Z85.46 Personal history of malignant neoplasm of prostate
CPT/HCPCS: 36415; 72170; 80053; 85025

== ENCOUNTER → 2019-12-31 08:41 | Outpatient (CLI) | payer MEDICARE, SELFPAY ==
[2019-12-31 10:06] LABS: Absolute Lymphocyte Count 1.57 X10^3/uL (0.83-4.51); Absolute Neutrophil Count 1.8 X10^3/uL (2.0-7.7); Basophil# 0.06 X10^3/uL; Basophil% 1.4 % (0-1); Eosinophils% 2.3 % (0-5); Hematocrit 42.7 % (40-54); Hemoglobin 13.5 g/dL (13.0-16.5); Lymphocyte # 1.57 X10^3/ul (4.0); Lymphocyte % 35.9 % (19-41); Mean Corp Hgb Conc 31.6 g/dL (32-36); Mean Corpuscular Hgb 31.2 pg (27.0-32.0); Mean Corpuscular Volume 98.6 fL (80-94); Mean Platelet Vol. 11.7 fl (6.2-12.0); Monocyte# 0.84 X10^3/uL; Monocyte% 19.2 % (0-10); NRBC Flagged by Analyzer 0 % (0-5); Neutrophil # 1.78 X10^3/uL (2.7-7.7); Neutrophil % 40.7 % (47-70); Platelet Count 200 K/mm3 (150-450); RBC Distribution Width CV 13.9 % (11.6-14.6); RBC Distribution Width SD 49.8 fl (35.1-43.9); Red Blood Count 4.33 M/mm3 (4.6-6.2); White Blood Count 4.4 K/mm3 (4.4-11.0)
[2019-12-31 10:48] LABS: ALB/GLOB Ratio 0.8 RATIO (0.9-2.4); AST(SGOT) 10 U/L (15-37); Alanine Aminotransfer ALT/SGPT 17 U/L (16-61); Albumin, Serum 3.4 g/dL (3.2-5.0); Alkaline Phosphatase 52 U/L (45-117); Anion Gap 2 (5-15); BUN 13 mg/dL (7-18); Calcium,Total 9.7 mg/dL (8.5-10.1); Chloride 107 mmol/L (98-107); Creatinine, Serum 0.86 mg/dL (0.70-1.30); EST Glomerular Filtration Rate 92 mL/min (>60); Est Glom Filt Rate - Afr Amer 111 mL/min (>60); Globulin 4.5 g/dL (2.2-4.2); Glucose 123 mg/dL (74-106); Potassium 4.2 mmol/L (3.5-5.1); Protein, Total 7.9 g/dL (6.4-8.2); Sodium Level 139 mmol/L (136-145)
== END ==
PROVIDERS: PCP Family Medicine; Referring Provider Internal Medicine Rheumatology; Visit Provider Internal Medicine Rheumatology
DX: M06.00 Rheumatoid arthritis without rheumatoid factor, unspecified site (principal); Z79.899 Other long term (current) drug therapy; M79.7 Fibromyalgia; M18.0 Bilateral primary osteoarthritis of first carpometacarpal joints; M21.40 Flat foot [pes planus] (acquired), unspecified foot; Z85.46 Personal history of malignant neoplasm of prostate
CPT/HCPCS: 36415; 80053; 85025

== ENCOUNTER → 2020-03-17 09:25 | Outpatient (CLI) | payer MEDICARE, SELFPAY ==
[2020-03-17 10:30] LABS: Absolute Lymphocyte Count 1.66 X10^3/uL (0.83-4.51); Absolute Neutrophil Count 2.4 X10^3/uL (2.0-7.7); Basophil# 0.05 X10^3/uL; Eosinophil# 0.11 X10^3/uL; Eosinophils% 2.1 % (0-5); Hematocrit 40.6 % (40-54); Hemoglobin 12.9 g/dL (13.0-16.5); Lymphocyte # 1.66 X10^3/ul (4.0); Lymphocyte % 32.4 % (19-41); Mean Corp Hgb Conc 31.8 g/dL (32-36); Mean Corpuscular Hgb 30.9 pg (27.0-32.0); Mean Corpuscular Volume 97.4 fL (80-94); Monocyte# 0.85 X10^3/uL; Monocyte% 16.6 % (0-10); NRBC Flagged by Analyzer 0 % (0-5); Neutrophil # 2.44 X10^3/uL (2.7-7.7); Neutrophil % 47.5 % (47-70); Platelet Count 223 K/mm3 (150-450); RBC Distribution Width CV 14.1 % (11.6-14.6); RBC Distribution Width SD 50.8 fl (35.1-43.9); Red Blood Count 4.17 M/mm3 (4.6-6.2); White Blood Count 5.1 K/mm3 (4.4-11.0)
[2020-03-17 11:53] LABS: ALB/GLOB Ratio 0.8 RATIO (0.9-2.4); AST(SGOT) 14 U/L (15-37); Alanine Aminotransfer ALT/SGPT 15 U/L (16-61); Albumin, Serum 3.5 g/dL (3.2-5.0); Alkaline Phosphatase 49 U/L (45-117); Anion Gap 3 (5-15); BUN 16 mg/dL (7-18); Chloride 105 mmol/L (98-107); EST Glomerular Filtration Rate 78 mL/min (>60); Est Glom Filt Rate - Afr Amer 94 mL/min (>60); Globulin 4.5 g/dL (2.2-4.2); Glucose 121 mg/dL (74-106); Potassium 3.9 mmol/L (3.5-5.1); Sodium Level 138 mmol/L (136-145)
== END ==
PROVIDERS: PCP Family Medicine; Referring Provider Internal Medicine Rheumatology; Visit Provider Internal Medicine Rheumatology
DX: M06.00 Rheumatoid arthritis without rheumatoid factor, unspecified site (principal); Z79.899 Other long term (current) drug therapy; M79.7 Fibromyalgia; M18.0 Bilateral primary osteoarthritis of first carpometacarpal joints; M21.40 Flat foot [pes planus] (acquired), unspecified foot; Z85.46 Personal history of malignant neoplasm of prostate
CPT/HCPCS: 36415; 80053; 85025

== ENCOUNTER → 2020-06-07 08:31 | Outpatient (CLI) | payer MEDICARE, SELFPAY ==
[2020-06-07 10:01] LABS: Absolute Lymphocyte Count 1.26 X10^3/uL (0.83-4.51); Absolute Neutrophil Count 2.1 X10^3/uL (2.0-7.7); Basophil# 0.06 X10^3/uL; Basophil% 1.5 % (0-1); Eosinophil# 0.13 X10^3/uL; Eosinophils% 3.2 % (0-5); Hematocrit 40.1 % (40-54); Hemoglobin 12.8 g/dL (13.0-16.5); Lymphocyte # 1.26 X10^3/ul (0.83-4.51); Lymphocyte % 30.9 % (19-41); Mean Corp Hgb Conc 31.9 g/dL (32-36); Mean Corpuscular Hgb 32.2 pg (27.0-32.0); Mean Corpuscular Volume 100.8 fL (80-94); Mean Platelet Vol. 11.8 fl (6.2-12.0); Monocyte% 12.3 % (0-10); NRBC Flagged by Analyzer 0 % (0-5); Neutrophil # 2.12 X10^3/uL (2.7-7.7); Neutrophil % 51.9 % (47-70); Platelet Count 218 K/mm3 (150-450); RBC Distribution Width CV 13.2 % (11.6-14.6); RBC Distribution Width SD 48.6 fl (35.1-43.9); Red Blood Count 3.98 M/mm3 (4.6-6.2); White Blood Count 4.1 K/mm3 (4.4-11.0)
[2020-06-07 10:22] LABS: ALB/GLOB Ratio 0.8 RATIO (0.9-2.4); AST(SGOT) 13 U/L (15-37); Alanine Aminotransfer ALT/SGPT 16 U/L (16-61); Albumin, Serum 3.4 g/dL (3.2-5.0); Alkaline Phosphatase 54 U/L (45-117); Anion Gap 5 (5-15); BUN 15 mg/dL (7-18); BUN/Creat Ratio 15.1 RATIO (10-20); Calcium,Total 8.8 mg/dL (8.5-10.1); Chloride 102 mmol/L (98-107); Creatinine, Serum 0.99 mg/dL (0.70-1.30); EST Glomerular Filtration Rate 78 mL/min (>60); Est Glom Filt Rate - Afr Amer 95 mL/min (>60); Globulin 4.4 g/dL (2.2-4.2); Glucose 109 mg/dL (74-106); Potassium 3.9 mmol/L (3.5-5.1); Protein, Total 7.8 g/dL (6.4-8.2); Sodium Level 136 mmol/L (136-145)
== END ==
PROVIDERS: PCP Family Medicine; Referring Provider Internal Medicine Rheumatology; Visit Provider Internal Medicine Rheumatology
DX: M06.00 Rheumatoid arthritis without rheumatoid factor, unspecified site (principal); M79.7 Fibromyalgia; M18.0 Bilateral primary osteoarthritis of first carpometacarpal joints; M21.40 Flat foot [pes planus] (acquired), unspecified foot; Z79.899 Other long term (current) drug therapy; Z85.46 Personal history of malignant neoplasm of prostate; Z92.21 Personal history of antineoplastic chemotherapy; Z92.3 Personal history of irradiation
CPT/HCPCS: 36415; 80053; 85025

== ENCOUNTER → 2020-09-06 09:47 | Outpatient (CLI) | payer MEDICARE, SELFPAY ==
[2020-09-06 12:19] LABS: Absolute Lymphocyte Count 1.55 X10^3/uL (0.83-4.51); Absolute Neutrophil Count 3.8 X10^3/uL (2.0-7.7); Basophil# 0.08 X10^3/uL; Basophil% 1.3 % (0-1); Eosinophil# 0.12 X10^3/uL; Eosinophils% 1.9 % (0-5); Hematocrit 38.4 % (40-54); Hemoglobin 12.4 g/dL (13.0-16.5); Lymphocyte # 1.55 X10^3/ul (0.83-4.51); Lymphocyte % 24.7 % (19-41); Mean Corp Hgb Conc 32.3 g/dL (32-36); Mean Platelet Vol. 11.9 fl (6.2-12.0); Monocyte# 0.72 X10^3/uL; Monocyte% 11.5 % (0-10); NRBC Flagged by Analyzer 0 % (0-5); Neutrophil # 3.78 X10^3/uL (2.7-7.7); Neutrophil % 60.1 % (47-70); Platelet Count 233 K/mm3 (150-450); RBC Distribution Width CV 13.8 % (11.6-14.6); RBC Distribution Width SD 49.4 fl (35.1-43.9); Red Blood Count 3.88 M/mm3 (4.6-6.2); White Blood Count 6.3 K/mm3 (4.4-11.0)
[2020-09-06 12:43] LABS: ALB/GLOB Ratio 0.8 RATIO (0.9-2.4); AST(SGOT) 13 U/L (15-37); Alanine Aminotransfer ALT/SGPT 17 U/L (16-61); Albumin, Serum 3.4 g/dL (3.2-5.0); Alkaline Phosphatase 47 U/L (45-117); Anion Gap 3 (5-15); BUN 16 mg/dL (7-18); BUN/Creat Ratio 17.2 RATIO (10-20); Calcium,Total 9.3 mg/dL (8.5-10.1); Chloride 104 mmol/L (98-107); Creatinine, Serum 0.93 mg/dL (0.70-1.30); EST Glomerular Filtration Rate 84 mL/min (>60); Est Glom Filt Rate - Afr Amer 102 mL/min (>60); Globulin 4.1 g/dL (2.2-4.2); Glucose 113 mg/dL (74-106); Protein, Total 7.5 g/dL (6.4-8.2); Sodium Level 138 mmol/L (136-145)
== END ==
PROVIDERS: PCP Family Medicine; Referring Provider Internal Medicine Rheumatology; Visit Provider Internal Medicine Rheumatology
DX: M06.00 Rheumatoid arthritis without rheumatoid factor, unspecified site (principal); M79.7 Fibromyalgia; M18.0 Bilateral primary osteoarthritis of first carpometacarpal joints; M21.40 Flat foot [pes planus] (acquired), unspecified foot; Z85.46 Personal history of malignant neoplasm of prostate; Z79.899 Other long term (current) drug therapy
CPT/HCPCS: 36415; 80053; 85025

== ENCOUNTER → 2020-12-01 07:29 | Outpatient (CLI) | payer MEDICARE, SELFPAY ==
[2020-12-01 10:13] LABS: Absolute Lymphocyte Count 1.08 X10^3/uL (0.83-4.51); Absolute Neutrophil Count 1.7 X10^3/uL (2.0-7.7); Basophil# 0.04 X10^3/uL; Basophil% 1.1 % (0-1); Eosinophil# 0.07 X10^3/uL; Hematocrit 40.4 % (40-54); Hemoglobin 12.7 g/dL (13.0-16.5); Lymphocyte # 1.08 X10^3/ul (0.83-4.51); Mean Corp Hgb Conc 31.4 g/dL (32-36); Mean Corpuscular Hgb 32.2 pg (27.0-32.0); Mean Corpuscular Volume 102.3 fL (80-94); Mean Platelet Vol. 11.6 fl (6.2-12.0); Monocyte# 0.63 X10^3/uL; Monocyte% 18.1 % (0-10); NRBC Flagged by Analyzer 0 % (0-5); Neutrophil # 1.65 X10^3/uL (2.7-7.7); Neutrophil % 47.5 % (47-70); Platelet Count 238 K/mm3 (150-450); RBC Distribution Width CV 14.6 % (11.6-14.6); RBC Distribution Width SD 54.4 fl (35.1-43.9); Red Blood Count 3.95 M/mm3 (4.6-6.2); White Blood Count 3.5 K/mm3 (4.4-11.0)
[2020-12-01 10:33] LABS: ALB/GLOB Ratio 0.8 RATIO (0.9-2.4); AST(SGOT) 18 U/L (15-37); Alanine Aminotransfer ALT/SGPT 19 U/L (16-61); Albumin, Serum 3.2 g/dL (3.2-5.0); Alkaline Phosphatase 48 U/L (45-117); Anion Gap 3 (5-15); BUN 19 mg/dL (7-18); BUN/Creat Ratio 20.1 RATIO (10-20); Calcium,Total 9.1 mg/dL (8.5-10.1); Chloride 108 mmol/L (98-107); Creatinine, Serum 0.94 mg/dL (0.70-1.30); EST Glomerular Filtration Rate 83 mL/min (>60); Est Glom Filt Rate - Afr Amer 100 mL/min (>60); Globulin 4.2 g/dL (2.2-4.2); Glucose 125 mg/dL (74-106); Potassium 3.7 mmol/L (3.5-5.1); Protein, Total 7.4 g/dL (6.4-8.2); Sodium Level 141 mmol/L (136-145)
== END ==
PROVIDERS: PCP Family Medicine; Referring Provider Internal Medicine Rheumatology; Visit Provider Internal Medicine Rheumatology
DX: M06.00 Rheumatoid arthritis without rheumatoid factor, unspecified site (principal); M79.7 Fibromyalgia; M18.0 Bilateral primary osteoarthritis of first carpometacarpal joints; M21.40 Flat foot [pes planus] (acquired), unspecified foot; Z79.899 Other long term (current) drug therapy; Z85.46 Personal history of malignant neoplasm of prostate
CPT/HCPCS: 36415; 80053; 85025

== ENCOUNTER 2021-02-16 09:14 | Outpatient (CLI) | payer MEDICARE, SELFPAY ==
[2021-02-16 10:14] LABS: Absolute Lymphocyte Count 1.07 X10^3/uL (0.83-4.51); Absolute Neutrophil Count 2.6 X10^3/uL (2.0-7.7); Basophil# 0.04 X10^3/uL; Basophil% 0.9 % (0-1); Eosinophil# 0.11 X10^3/uL; Eosinophils% 2.6 % (0-5); Hematocrit 40.9 % (40-54); Hemoglobin 12.7 g/dL (13.0-16.5); Lymphocyte # 1.07 X10^3/ul (0.83-4.51); Mean Corp Hgb Conc 31.1 g/dL (32-36); Mean Corpuscular Hgb 31.1 pg (27.0-32.0); Mean Platelet Vol. 11.8 fl (6.2-12.0); Monocyte# 0.44 X10^3/uL; Monocyte% 10.3 % (0-10); NRBC Flagged by Analyzer 0 % (0-5); Neutrophil # 2.61 X10^3/uL (2.7-7.7); Platelet Count 208 K/mm3 (150-450); RBC Distribution Width CV 14.7 % (11.6-14.6); Red Blood Count 4.09 M/mm3 (4.6-6.2); White Blood Count 4.3 K/mm3 (4.4-11.0)
[2021-02-16 10:45] LABS: ALB/GLOB Ratio 0.7 RATIO (0.9-2.4); AST(SGOT) 19 U/L (15-37); Alanine Aminotransfer ALT/SGPT 26 U/L (16-61); Albumin, Serum 3.3 g/dL (3.2-5.0); Alkaline Phosphatase 50 U/L (45-117); Anion Gap 6 (5-15); BUN 21 mg/dL (7-18); BUN/Creat Ratio 20.6 RATIO (10-20); Calcium,Total 9.6 mg/dL (8.5-10.1); Chloride 103 mmol/L (98-107); Creatinine, Serum 1.02 mg/dL (0.70-1.30); EST Glomerular Filtration Rate 76 mL/min (>60); Est Glom Filt Rate - Afr Amer 91 mL/min (>60); Globulin 4.5 g/dL (2.2-4.2); Glucose 163 mg/dL (74-106); Protein, Total 7.8 g/dL (6.4-8.2); Sodium Level 139 mmol/L (136-145)
== END 2021-02-16 23:59 | disposition short-term general hospital (02) ==
LOC: MTLAB 09:16
PROVIDERS: PCP Family Medicine; Referring Provider Internal Medicine Rheumatology; Visit Provider Internal Medicine Rheumatology
DX: M06.00 Rheumatoid arthritis without rheumatoid factor, unspecified site (principal); Z79.899 Other long term (current) drug therapy; M79.7 Fibromyalgia; M18.0 Bilateral primary osteoarthritis of first carpometacarpal joints; M21.40 Flat foot [pes planus] (acquired), unspecified foot; Z85.46 Personal history of malignant neoplasm of prostate
CPT/HCPCS: 36415; 80053; 85025

== ENCOUNTER 2021-05-04 09:22 | Outpatient (CLI) | payer MEDICARE, SELFPAY ==
[2021-05-04 10:23] LABS: Absolute Lymphocyte Count 0.95 X10^3/uL (0.83-4.51); Absolute Neutrophil Count 2.7 X10^3/uL (2.0-7.7); Basophil# 0.06 X10^3/uL; Basophil% 1.4 % (0-1); Eosinophil# 0.07 X10^3/uL; Eosinophils% 1.6 % (0-5); Hematocrit 38.1 % (40-54); Hemoglobin 12.5 g/dL (13.0-16.5); Lymphocyte # 0.95 X10^3/ul (0.83-4.51); Lymphocyte % 21.7 % (19-41); Mean Corp Hgb Conc 32.8 g/dL (32-36); Mean Corpuscular Hgb 32.5 pg (27.0-32.0); Mean Platelet Vol. 11.9 fl (6.2-12.0); Monocyte# 0.59 X10^3/uL; Monocyte% 13.5 % (0-10); NRBC Flagged by Analyzer 0 % (0-5); Neutrophil # 2.69 X10^3/uL (2.7-7.7); Neutrophil % 61.3 % (47-70); Platelet Count 214 K/mm3 (150-450); RBC Distribution Width CV 15.3 % (11.6-14.6); RBC Distribution Width SD 54.5 fl (35.1-43.9); Red Blood Count 3.85 M/mm3 (4.6-6.2); White Blood Count 4.4 K/mm3 (4.4-11.0)
[2021-05-04 11:29] LABS: ALB/GLOB Ratio 0.8 RATIO (0.9-2.4); AST(SGOT) 22 U/L (15-37); Alanine Aminotransfer ALT/SGPT 24 U/L (16-61); Albumin, Serum 3.4 g/dL (3.2-5.0); Alkaline Phosphatase 48 U/L (45-117); Anion Gap 6 (5-15); BUN 19 mg/dL (7-18); BUN/Creat Ratio 19.4 RATIO (10-20); Calcium,Total 9.4 mg/dL (8.5-10.1); Chloride 106 mmol/L (98-107); Creatinine, Serum 0.98 mg/dL (0.70-1.30); EST Glomerular Filtration Rate 79 mL/min (>60); Est Glom Filt Rate - Afr Amer 96 mL/min (>60); Glucose 168 mg/dL (74-106); Potassium 3.9 mmol/L (3.5-5.1); Protein, Total 7.4 g/dL (6.4-8.2); Sodium Level 140 mmol/L (136-145)
== END 2021-05-04 23:59 | disposition home or self-care (01) ==
LOC: MTLAB 09:23
PROVIDERS: PCP Family Medicine; Referring Provider Internal Medicine Rheumatology; Visit Provider Internal Medicine Rheumatology
DX: M06.00 Rheumatoid arthritis without rheumatoid factor, unspecified site (principal); M79.7 Fibromyalgia; M18.0 Bilateral primary osteoarthritis of first carpometacarpal joints; M21.40 Flat foot [pes planus] (acquired), unspecified foot; Z85.46 Personal history of malignant neoplasm of prostate; Z79.899 Other long term (current) drug therapy
CPT/HCPCS: 36415; 80053; 85025

== ENCOUNTER → 2021-08-04 | Outpatient (CLI) | payer MEDICARE, SELFPAY ==
[2021-08-04 12:23] LABS: Absolute Lymphocyte Count 1.23 X10^3/uL (0.83-4.51); Absolute Neutrophil Count 4.5 X10^3/uL (2.0-7.7); Basophil# 0.05 X10^3/uL; Basophil% 0.8 % (0-1); Eosinophil# 0.09 X10^3/uL; Eosinophils% 1.4 % (0-5); Hematocrit 39.6 % (40-54); Lymphocyte # 1.23 X10^3/ul (0.83-4.51); Lymphocyte % 19.2 % (19-41); Mean Corp Hgb Conc 32.8 g/dL (32-36); Mean Corpuscular Hgb 32.7 pg (27.0-32.0); Mean Corpuscular Volume 99.5 fL (80-94); Mean Platelet Vol. 12.2 fl (6.2-12.0); Monocyte# 0.48 X10^3/uL; Monocyte% 7.5 % (0-10); NRBC Flagged by Analyzer 0 % (0-5); Neutrophil # 4.52 X10^3/uL (2.7-7.7); Neutrophil % 70.8 % (47-70); Platelet Count 201 K/mm3 (150-450); RBC Distribution Width CV 14.8 % (11.6-14.6); RBC Distribution Width SD 53.5 fl (35.1-43.9); Red Blood Count 3.98 M/mm3 (4.6-6.2); White Blood Count 6.4 K/mm3 (4.4-11.0)
[2021-08-04 12:57] LABS: ALB/GLOB Ratio 0.9 RATIO (0.9-2.4); AST(SGOT) 22 U/L (15-37); Alanine Aminotransfer ALT/SGPT 25 U/L (16-61); Albumin, Serum 3.5 g/dL (3.2-5.0); Alkaline Phosphatase 42 U/L (45-117); Anion Gap 6 (5-15); BUN 24 mg/dL (7-18); BUN/Creat Ratio 23.8 RATIO (10-20); Calcium,Total 9.9 mg/dL (8.5-10.1); Chloride 106 mmol/L (98-107); Creatinine, Serum 1.01 mg/dL (0.70-1.30); EST Glomerular Filtration Rate 76 mL/min (>60); Est Glom Filt Rate - Afr Amer 92 mL/min (>60); Globulin 4.1 g/dL (2.2-4.2); Glucose 105 mg/dL (74-106); Potassium 4.3 mmol/L (3.5-5.1); Protein, Total 7.6 g/dL (6.4-8.2); Sodium Level 138 mmol/L (136-145)
== END | disposition home or self-care (01) ==
LOC: MTLAB 10:27
PROVIDERS: PCP Family Medicine; Referring Provider Internal Medicine Rheumatology; Visit Provider Internal Medicine Rheumatology
DX: M06.00 Rheumatoid arthritis without rheumatoid factor, unspecified site (principal); M79.7 Fibromyalgia; M18.0 Bilateral primary osteoarthritis of first carpometacarpal joints; M21.40 Flat foot [pes planus] (acquired), unspecified foot; Z85.46 Personal history of malignant neoplasm of prostate; Z79.899 Other long term (current) drug therapy
CPT/HCPCS: 36415; 80053; 85025

== ENCOUNTER → 2021-10-26 | Outpatient (CLI) | payer MEDICARE, SELFPAY ==
[2021-10-26 10:08] LABS: Absolute Lymphocyte Count 0.97 X10^3/uL (0.83-4.51); Absolute Neutrophil Count 2.5 X10^3/uL (2.0-7.7); Basophil# 0.04 X10^3/uL; Eosinophil# 0.11 X10^3/uL; Eosinophils% 2.7 % (0-5); Hematocrit 42.6 % (40-54); Hemoglobin 13.8 g/dL (13.0-16.5); Lymphocyte # 0.97 X10^3/ul (0.83-4.51); Lymphocyte % 23.5 % (19-41); Mean Corp Hgb Conc 32.4 g/dL (32-36); Mean Corpuscular Volume 101.9 fL (80-94); Mean Platelet Vol. 12.2 fl (6.2-12.0); Monocyte# 0.53 X10^3/uL; Monocyte% 12.9 % (0-10); NRBC Flagged by Analyzer 0 % (0-5); Neutrophil # 2.45 X10^3/uL (2.7-7.7); Neutrophil % 59.4 % (47-70); Platelet Count 190 K/mm3 (150-450); RBC Distribution Width CV 14.4 % (11.6-14.6); Red Blood Count 4.18 M/mm3 (4.6-6.2); White Blood Count 4.1 K/mm3 (4.4-11.0)
[2021-10-26 10:26] LABS: ALB/GLOB Ratio 0.8 RATIO (0.9-2.4); AST(SGOT) 18 U/L (15-37); Alanine Aminotransfer ALT/SGPT 26 U/L (16-61); Albumin, Serum 3.4 g/dL (3.2-5.0); Alkaline Phosphatase 49 U/L (45-117); Anion Gap 7 (5-15); BUN 18 mg/dL (7-18); BUN/Creat Ratio 19.6 RATIO (10-20); Calcium,Total 9.4 mg/dL (8.5-10.1); Chloride 103 mmol/L (98-107); Creatinine, Serum 0.92 mg/dL (0.70-1.30); EST Glomerular Filtration Rate 85 mL/min (>60); Est Glom Filt Rate - Afr Amer 103 mL/min (>60); Globulin 4.4 g/dL (2.2-4.2); Glucose 124 mg/dL (74-106); Potassium 4.3 mmol/L (3.5-5.1); Protein, Total 7.8 g/dL (6.4-8.2); Sodium Level 138 mmol/L (136-145)
== END | disposition home or self-care (01) ==
PROVIDERS: PCP Family Medicine; Referring Provider Psychiatry & Neurology Psychiatry; Visit Provider Internal Medicine Rheumatology
DX: M06.00 Rheumatoid arthritis without rheumatoid factor, unspecified site (principal); M18.0 Bilateral primary osteoarthritis of first carpometacarpal joints; M21.40 Flat foot [pes planus] (acquired), unspecified foot; M79.7 Fibromyalgia; Z85.46 Personal history of malignant neoplasm of prostate; Z79.899 Other long term (current) drug therapy
CPT/HCPCS: 36415; 80053; 85025

== ENCOUNTER → 2022-01-20 | Outpatient (CLI) | payer MEDICARE, SELFPAY ==
[2022-01-20 10:02] LABS: Absolute Lymphocyte Count 1.35 X10^3/uL (0.83-4.51); Absolute Neutrophil Count 2.4 X10^3/uL (2.0-7.7); Basophil# 0.05 X10^3/uL; Basophil% 1.1 % (0-1); Eosinophil# 0.16 X10^3/uL; Eosinophils% 3.6 % (0-5); Hematocrit 41.2 % (40-54); Lymphocyte # 1.35 X10^3/ul (0.83-4.51); Lymphocyte % 30.6 % (19-41); Mean Corp Hgb Conc 31.6 g/dL (32-36); Mean Corpuscular Hgb 31.6 pg (27.0-32.0); Mean Platelet Vol. 11.9 fl (6.2-12.0); Monocyte# 0.48 X10^3/uL; Monocyte% 10.9 % (0-10); NRBC Flagged by Analyzer 0.5 % (0-5); Neutrophil # 2.36 X10^3/uL (2.7-7.7); Neutrophil % 53.6 % (47-70); Platelet Count 183 K/mm3 (150-450); RBC Distribution Width SD 50.8 fl (35.1-43.9); Red Blood Count 4.12 M/mm3 (4.6-6.2); White Blood Count 4.4 K/mm3 (4.4-11.0)
[2022-01-20 10:26] LABS: ALB/GLOB Ratio 0.9 RATIO (0.9-2.4); AST(SGOT) 17 U/L (15-37); Alanine Aminotransfer ALT/SGPT 22 U/L (16-61); Albumin, Serum 3.5 g/dL (3.2-5.0); Alkaline Phosphatase 45 U/L (45-117); Anion Gap 4 (5-15); BUN 13 mg/dL (7-18); Calcium,Total 9.2 mg/dL (8.5-10.1); Chloride 105 mmol/L (98-107); Creatinine, Serum 0.93 mg/dL (0.70-1.30); EST Glomerular Filtration Rate 84 mL/min (>60); Est Glom Filt Rate - Afr Amer 102 mL/min (>60); Globulin 3.9 g/dL (2.2-4.2); Glucose 121 mg/dL (74-106); Potassium 4.2 mmol/L (3.5-5.1); Protein, Total 7.4 g/dL (6.4-8.2); Sodium Level 138 mmol/L (136-145)
== END | disposition home or self-care (01) ==
LOC: MTLAB 08:29
PROVIDERS: PCP Family Medicine; Referring Provider Internal Medicine Rheumatology; Visit Provider Internal Medicine Rheumatology
DX: M06.00 Rheumatoid arthritis without rheumatoid factor, unspecified site (principal); M79.7 Fibromyalgia; Z79.899 Other long term (current) drug therapy
CPT/HCPCS: 36415; 80053; 85025

== ENCOUNTER → 2022-04-12 | Outpatient (CLI) | payer MEDICARE, SELFPAY ==
[2022-04-12 12:33] LABS: Absolute Lymphocyte Count 1.14 X10^3/uL (0.83-4.51); Absolute Neutrophil Count 2.7 X10^3/uL (2.0-7.7); Basophil# 0.05 X10^3/uL; Basophil% 1.1 % (0-1); Eosinophil# 0.06 X10^3/uL; Eosinophils% 1.3 % (0-5); Hematocrit 41.3 % (40-54); Hemoglobin 13.4 g/dL (13.0-16.5); Lymphocyte # 1.14 X10^3/ul (0.83-4.51); Lymphocyte % 24.9 % (19-41); Mean Corp Hgb Conc 32.4 g/dL (32-36); Mean Corpuscular Volume 101.7 fL (80-94); Mean Platelet Vol. 12.1 fl (6.2-12.0); Monocyte# 0.63 X10^3/uL; Monocyte% 13.8 % (0-10); NRBC Flagged by Analyzer 0 % (0-5); Neutrophil # 2.69 X10^3/uL (2.7-7.7); Neutrophil % 58.7 % (47-70); Platelet Count 215 K/mm3 (150-450); RBC Distribution Width CV 13.9 % (11.6-14.6); RBC Distribution Width SD 51.4 fl (35.1-43.9); Red Blood Count 4.06 M/mm3 (4.6-6.2); White Blood Count 4.6 K/mm3 (4.4-11.0)
[2022-04-12 12:59] LABS: ALB/GLOB Ratio 0.8 RATIO (0.9-2.4); AST(SGOT) 27 U/L (15-37); Alanine Aminotransfer ALT/SGPT 20 U/L (16-61); Albumin, Serum 3.4 g/dL (3.2-5.0); Alkaline Phosphatase 44 U/L (45-117); Anion Gap 7 (5-15); BUN 16 mg/dL (7-18); BUN/Creat Ratio 17.8 RATIO (10-20); Calcium,Total 9.6 mg/dL (8.5-10.1); Chloride 103 mmol/L (98-107); EST Glomerular Filtration Rate 87 mL/min (>60); Est Glom Filt Rate - Afr Amer 105 mL/min (>60); Globulin 4.3 g/dL (2.2-4.2); Glucose 123 mg/dL (74-106); Potassium 4.1 mmol/L (3.5-5.1); Protein, Total 7.7 g/dL (6.4-8.2); Sodium Level 136 mmol/L (136-145)
== END | disposition home or self-care (01) ==
LOC: MTLAB 09:24
PROVIDERS: PCP Family Medicine; Visit Provider Internal Medicine Rheumatology
DX: M06.00 Rheumatoid arthritis without rheumatoid factor, unspecified site (principal); Z79.899 Other long term (current) drug therapy; M79.7 Fibromyalgia; M18.0 Bilateral primary osteoarthritis of first carpometacarpal joints; M21.40 Flat foot [pes planus] (acquired), unspecified foot; Z85.46 Personal history of malignant neoplasm of prostate
CPT/HCPCS: 36415; 80053; 85025

== ENCOUNTER → 2022-07-14 | Outpatient (CLI) | payer MEDICARE, SELFPAY ==
[2022-07-14 10:40] LABS: Absolute Lymphocyte Count 1.27 X10^3/uL (0.83-4.51); Absolute Neutrophil Count 2.7 X10^3/uL (2.0-7.7); Basophil# 0.06 X10^3/uL; Basophil% 1.3 % (0-1); Eosinophils% 2.1 % (0-5); Hematocrit 41.8 % (40-54); Hemoglobin 13.5 g/dL (13.0-16.5); Lymphocyte # 1.27 X10^3/ul (0.83-4.51); Lymphocyte % 27.1 % (19-41); Mean Corp Hgb Conc 32.3 g/dL (32-36); Mean Corpuscular Hgb 33.2 pg (27.0-32.0); Mean Corpuscular Volume 102.7 fL (80-94); Monocyte# 0.58 X10^3/uL; Monocyte% 12.4 % (0-10); NRBC Flagged by Analyzer 0 % (0-5); Neutrophil # 2.66 X10^3/uL (2.7-7.7); Neutrophil % 56.7 % (47-70); Platelet Count 201 K/mm3 (150-450); RBC Distribution Width CV 14.4 % (11.6-14.6); RBC Distribution Width SD 53.9 fl (35.1-43.9); Red Blood Count 4.07 M/mm3 (4.6-6.2); White Blood Count 4.7 K/mm3 (4.4-11.0)
[2022-07-14 10:52] LABS: ALB/GLOB Ratio 0.8 RATIO (0.9-2.4); AST(SGOT) 17 U/L (15-37); Alanine Aminotransfer ALT/SGPT 21 U/L (16-61); Albumin, Serum 3.5 g/dL (3.2-5.0); Alkaline Phosphatase 41 U/L (45-117); Anion Gap 7 (5-15); BUN 17 mg/dL (7-18); BUN/Creat Ratio 17.7 RATIO (10-20); Calcium,Total 9.4 mg/dL (8.5-10.1); Chloride 104 mmol/L (98-107); Creatinine, Serum 0.96 mg/dL (0.70-1.30); EST Glomerular Filtration Rate 81 mL/min (>60); Est Glom Filt Rate - Afr Amer 98 mL/min (>60); Globulin 4.3 g/dL (2.2-4.2); Glucose 124 mg/dL (74-106); Potassium 4.3 mmol/L (3.5-5.1); Protein, Total 7.8 g/dL (6.4-8.2); Sodium Level 139 mmol/L (136-145)
== END | disposition home or self-care (01) ==
PROVIDERS: PCP Family Medicine; Referring Provider Internal Medicine Rheumatology; Visit Provider Internal Medicine Rheumatology
DX: M06.00 Rheumatoid arthritis without rheumatoid factor, unspecified site (principal); Z79.899 Other long term (current) drug therapy
CPT/HCPCS: 36415; 80053; 85025

== ENCOUNTER → 2022-10-10 | Outpatient (CLI) | payer MEDICARE, SELFPAY ==
[2022-10-10 12:19] LABS: Absolute Lymphocyte Count 1.08 X10^3/uL (0.83-4.51); Absolute Neutrophil Count 2.9 X10^3/uL (2.0-7.7); Basophil# 0.06 X10^3/uL; Basophil% 1.2 % (0-1); Eosinophils% 1.9 % (0-5); Hemoglobin 13.9 g/dL (13.0-16.5); Lymphocyte # 1.08 X10^3/ul (0.83-4.51); Mean Corp Hgb Conc 32.3 g/dL (32-36); Mean Corpuscular Hgb 33.2 pg (27.0-32.0); Mean Corpuscular Volume 102.6 fL (80-94); Mean Platelet Vol. 11.5 fl (6.2-12.0); Monocyte# 0.94 X10^3/uL; Monocyte% 18.3 % (0-10); NRBC Flagged by Analyzer 0 % (0-5); Neutrophil # 2.94 X10^3/uL (2.7-7.7); Neutrophil % 57.2 % (47-70); Platelet Count 204 K/mm3 (150-450); RBC Distribution Width CV 13.9 % (11.6-14.6); RBC Distribution Width SD 51.9 fl (35.1-43.9); Red Blood Count 4.19 M/mm3 (4.6-6.2); White Blood Count 5.1 K/mm3 (4.4-11.0)
[2022-10-10 12:43] LABS: ALB/GLOB Ratio 0.8 RATIO (0.9-2.4); AST(SGOT) 12 U/L (15-37); Alanine Aminotransfer ALT/SGPT 15 U/L (16-61); Albumin, Serum 3.3 g/dL (3.2-5.0); Alkaline Phosphatase 46 U/L (45-117); Anion Gap 5 (5-15); BUN 15 mg/dL (7-18); BUN/Creat Ratio 15.3 RATIO (10-20); Calcium,Total 9.4 mg/dL (8.5-10.1); Chloride 103 mmol/L (98-107); Creatinine, Serum 0.98 mg/dL (0.70-1.30); EST Glomerular Filtration Rate 79 mL/min (>60); Est Glom Filt Rate - Afr Amer 96 mL/min (>60); Glucose 110 mg/dL (74-106); Potassium 3.8 mmol/L (3.5-5.1); Protein, Total 7.3 g/dL (6.4-8.2); Sodium Level 137 mmol/L (136-145)
== END | disposition home or self-care (01) ==
LOC: MTLAB 10:14
PROVIDERS: PCP Family Medicine; Referring Provider Internal Medicine Rheumatology; Visit Provider Internal Medicine Rheumatology
DX: M06.00 Rheumatoid arthritis without rheumatoid factor, unspecified site (principal); Z79.899 Other long term (current) drug therapy
CPT/HCPCS: 36415; 80053; 85025

== ENCOUNTER → 2023-01-11 | Outpatient (CLI) | payer MEDICARE, SELFPAY ==
[2023-01-11 10:11] LABS: Absolute Lymphocyte Count 0.94 X10^3/uL (0.83-4.51); Absolute Neutrophil Count 4.9 X10^3/uL (2.0-7.7); Basophil# 0.06 X10^3/uL; Basophil% 0.9 % (0-1); Eosinophil# 0.13 X10^3/uL; Eosinophils% 1.9 % (0-5); Hematocrit 42.4 % (40-54); Hemoglobin 13.5 g/dL (13.0-16.5); Lymphocyte # 0.94 X10^3/ul (0.83-4.51); Lymphocyte % 13.8 % (19-41); Mean Corp Hgb Conc 31.8 g/dL (32-36); Mean Corpuscular Hgb 32.7 pg (27.0-32.0); Mean Corpuscular Volume 102.7 fL (80-94); Mean Platelet Vol. 12.2 fl (6.2-12.0); Monocyte# 0.71 X10^3/uL; Monocyte% 10.4 % (0-10); NRBC Flagged by Analyzer 0 % (0-5); Neutrophil # 4.94 X10^3/uL (2.7-7.7); Neutrophil % 72.6 % (47-70); Platelet Count 219 K/mm3 (150-450); RBC Distribution Width CV 14.3 % (11.6-14.6); RBC Distribution Width SD 53.5 fl (35.1-43.9); Red Blood Count 4.13 M/mm3 (4.6-6.2); White Blood Count 6.8 K/mm3 (4.4-11.0)
[2023-01-11 10:39] LABS: ALB/GLOB Ratio 0.7 RATIO (0.9-2.4); AST(SGOT) 17 U/L (15-37); Alanine Aminotransfer ALT/SGPT 13 U/L (16-61); Albumin, Serum 3.1 g/dL (3.2-5.0); Alkaline Phosphatase 46 U/L (45-117); Anion Gap 9 (5-15); BUN 18 mg/dL (7-18); BUN/Creat Ratio 16.4 RATIO (10-20); Calcium,Total 9.2 mg/dL (8.5-10.1); Chloride 103 mmol/L (98-107); EST Glomerular Filtration Rate 69 mL/min (>60); Est Glom Filt Rate - Afr Amer 83 mL/min (>60); Globulin 4.6 g/dL (2.2-4.2); Glucose 126 mg/dL (74-106); Potassium 3.9 mmol/L (3.5-5.1); Protein, Total 7.7 g/dL (6.4-8.2); Sodium Level 139 mmol/L (136-145)
== END | disposition home or self-care (01) ==
LOC: MTLAB 09:02
PROVIDERS: PCP Family Medicine; Referring Provider Internal Medicine Rheumatology; Visit Provider Internal Medicine Rheumatology
DX: M06.00 Rheumatoid arthritis without rheumatoid factor, unspecified site (principal); M79.7 Fibromyalgia; M18.0 Bilateral primary osteoarthritis of first carpometacarpal joints; M21.40 Flat foot [pes planus] (acquired), unspecified foot; Z79.899 Other long term (current) drug therapy; Z85.46 Personal history of malignant neoplasm of prostate
CPT/HCPCS: 36415; 80053; 85025

== ENCOUNTER → 2023-04-16 | Outpatient (CLI) | payer MEDICARE, SELFPAY ==
[2023-04-16 15:06] LABS: Absolute Lymphocyte Count 1.58 X10^3/uL (0.83-4.51); Absolute Neutrophil Count 2.7 X10^3/uL (2.0-7.7); Basophil# 0.09 X10^3/uL; Basophil% 1.6 % (0-1); Eosinophil# 0.11 X10^3/uL; Hemoglobin 13.5 g/dL (13.0-16.5); Lymphocyte # 1.58 X10^3/ul (0.83-4.51); Lymphocyte % 28.6 % (19-41); Mean Corp Hgb Conc 32.1 g/dL (32-36); Mean Corpuscular Hgb 32.8 pg (27.0-32.0); Mean Corpuscular Volume 102.2 fL (80-94); Mean Platelet Vol. 12.1 fl (6.2-12.0); Monocyte# 0.99 X10^3/uL; Monocyte% 17.9 % (0-10); NRBC Flagged by Analyzer 0 % (0-5); Neutrophil # 2.72 X10^3/uL (2.7-7.7); Neutrophil % 49.4 % (47-70); Platelet Count 215 K/mm3 (150-450); RBC Distribution Width CV 14.5 % (11.6-14.6); RBC Distribution Width SD 53.8 fl (35.1-43.9); Red Blood Count 4.11 M/mm3 (4.6-6.2); White Blood Count 5.5 K/mm3 (4.4-11.0)
[2023-04-16 15:33] LABS: ALB/GLOB Ratio 0.9 RATIO (0.9-2.4); AST(SGOT) 14 U/L (15-37); Alanine Aminotransfer ALT/SGPT 19 U/L (16-61); Albumin, Serum 3.6 g/dL (3.2-5.0); Alkaline Phosphatase 45 U/L (45-117); Anion Gap 5 (5-15); BUN 18 mg/dL (7-18); BUN/Creat Ratio 17.5 RATIO (10-20); Calcium,Total 9.8 mg/dL (8.5-10.1); Chloride 105 mmol/L (98-107); Creatinine, Serum 1.03 mg/dL (0.70-1.30); EST Glomerular Filtration Rate 74 mL/min (>60); Est Glom Filt Rate - Afr Amer 90 mL/min (>60); Globulin 4.1 g/dL (2.2-4.2); Glucose 112 mg/dL (74-106); Potassium 4.1 mmol/L (3.5-5.1); Protein, Total 7.7 g/dL (6.4-8.2); Sodium Level 139 mmol/L (136-145)
== END | disposition home or self-care (01) ==
PROVIDERS: PCP Family Medicine; Referring Provider Internal Medicine Rheumatology; Visit Provider Internal Medicine Rheumatology
DX: M06.00 Rheumatoid arthritis without rheumatoid factor, unspecified site (principal); M79.7 Fibromyalgia; M18.0 Bilateral primary osteoarthritis of first carpometacarpal joints; Z79.899 Other long term (current) drug therapy
CPT/HCPCS: 36415; 80053; 85025

== ENCOUNTER → 2023-07-10 | Outpatient (CLI) | payer MEDICARE, SELFPAY ==
[2023-07-10 12:31] LABS: Absolute Lymphocyte Count 1.17 X10^3/uL (0.83-4.51); Absolute Neutrophil Count 3.6 X10^3/uL (2.0-7.7); Basophil# 0.06 X10^3/uL; Basophil% 0.9 % (0-1); Eosinophil# 0.26 X10^3/uL; Eosinophils% 4.1 % (0-5); Hematocrit 41.1 % (40-54); Hemoglobin 13.2 g/dL (13.0-16.5); Lymphocyte # 1.17 X10^3/ul (0.83-4.51); Lymphocyte % 18.5 % (19-41); Mean Corp Hgb Conc 32.1 g/dL (32-36); Mean Corpuscular Hgb 32.8 pg (27.0-32.0); Mean Platelet Vol. 11.7 fl (6.2-12.0); Monocyte# 1.22 X10^3/uL; Monocyte% 19.2 % (0-10); NRBC Flagged by Analyzer 0 % (0-5); Neutrophil % 56.8 % (47-70); Platelet Count 204 K/mm3 (150-450); RBC Distribution Width CV 15.2 % (11.6-14.6); RBC Distribution Width SD 56.4 fl (35.1-43.9); Red Blood Count 4.03 M/mm3 (4.6-6.2); White Blood Count 6.3 K/mm3 (4.4-11.0)
[2023-07-10 13:09] LABS: ALB/GLOB Ratio 0.8 RATIO (0.9-2.4); AST(SGOT) 14 U/L (15-37); Alanine Aminotransfer ALT/SGPT 16 U/L (16-61); Albumin, Serum 3.2 g/dL (3.2-5.0); Alkaline Phosphatase 45 U/L (45-117); Anion Gap 8 (5-15); BUN 13 mg/dL (7-18); Calcium,Total 9.8 mg/dL (8.5-10.1); Chloride 104 mmol/L (98-107); Creatinine, Serum 0.93 mg/dL (0.70-1.30); EST Glomerular Filtration Rate 84 mL/min (>60); Est Glom Filt Rate - Afr Amer 101 mL/min (>60); Globulin 4.2 g/dL (2.2-4.2); Glucose 95 mg/dL (74-106); Potassium 3.9 mmol/L (3.5-5.1); Protein, Total 7.4 g/dL (6.4-8.2); Sodium Level 139 mmol/L (136-145)
== END | disposition home or self-care (01) ==
LOC: MTLAB 09:13
PROVIDERS: PCP Family Medicine; Referring Provider Internal Medicine Rheumatology; Visit Provider Internal Medicine Rheumatology
DX: M06.00 Rheumatoid arthritis without rheumatoid factor, unspecified site (principal); M79.7 Fibromyalgia; M18.0 Bilateral primary osteoarthritis of first carpometacarpal joints; Z79.899 Other long term (current) drug therapy
CPT/HCPCS: 36415; 80053; 85025

== ENCOUNTER → 2023-10-01 | Outpatient (CLI) | payer MEDICARE, SELFPAY ==
[2023-10-01 15:02] LABS: Absolute Neutrophil Count 4.3 X10^3/uL (2.0-7.7); Basophil# 0.08 X10^3/uL; Basophil% 1.1 % (0-1); Eosinophil# 0.26 X10^3/uL; Eosinophils% 3.7 % (0-5); Hematocrit 42.3 % (40-54); Hemoglobin 13.6 g/dL (13.0-16.5); Lymphocyte % 18.5 % (19-41); Mean Corp Hgb Conc 32.2 g/dL (32-36); Mean Corpuscular Hgb 32.3 pg (27.0-32.0); Mean Corpuscular Volume 100.5 fL (80-94); Mean Platelet Vol. 12.4 fl (6.2-12.0); Monocyte# 1.05 X10^3/uL; NRBC Flagged by Analyzer 0 % (0-5); Neutrophil % 61.3 % (47-70); Platelet Count 177 K/mm3 (150-450); RBC Distribution Width CV 14.3 % (11.6-14.6); RBC Distribution Width SD 51.2 fl (35.1-43.9); Red Blood Count 4.21 M/mm3 (4.6-6.2)
[2023-10-01 15:30] LABS: ALB/GLOB Ratio 0.8 RATIO (0.9-2.4); AST(SGOT) 17 U/L (15-37); Alanine Aminotransfer ALT/SGPT 16 U/L (16-61); Albumin, Serum 3.4 g/dL (3.2-5.0); Alkaline Phosphatase 50 U/L (45-117); Anion Gap 5 (5-15); BUN 15 mg/dL (7-18); Calcium,Total 9.6 mg/dL (8.5-10.1); Chloride 103 mmol/L (98-107); Creatinine, Serum 1.07 mg/dL (0.70-1.30); EST Glomerular Filtration Rate 71 mL/min (>60); Est Glom Filt Rate - Afr Amer 86 mL/min (>60); Globulin 4.3 g/dL (2.2-4.2); Glucose 108 mg/dL (74-106); Potassium 4.4 mmol/L (3.5-5.1); Protein, Total 7.7 g/dL (6.4-8.2); Sodium Level 135 mmol/L (136-145)
== END | disposition home or self-care (01) ==
LOC: MTLAB 11:09
PROVIDERS: PCP Family Medicine; Referring Provider Internal Medicine Rheumatology; Visit Provider Internal Medicine Rheumatology
DX: M06.00 Rheumatoid arthritis without rheumatoid factor, unspecified site (principal); M79.7 Fibromyalgia; Z79.899 Other long term (current) drug therapy
CPT/HCPCS: 36415; 80053; 85025

== ENCOUNTER → 2023-12-25 | Outpatient (CLI) | payer MEDICARE, SELFPAY ==
[2023-12-25 12:22] LABS: Absolute Lymphocyte Count 1.02 X10^3/uL (0.83-4.51); Absolute Neutrophil Count 3.1 X10^3/uL (2.0-7.7); Basophil# 0.06 X10^3/uL; Basophil% 1.2 % (0-1); Eosinophil# 0.21 X10^3/uL; Eosinophils% 4.3 % (0-5); Hematocrit 32.4 % (40-54); Hemoglobin 10.4 g/dL (13.0-16.5); Lymphocyte # 1.02 X10^3/ul (0.83-4.51); Lymphocyte % 20.9 % (19-41); Mean Corp Hgb Conc 32.1 g/dL (32-36); Mean Corpuscular Hgb 33.3 pg (27.0-32.0); Mean Corpuscular Volume 103.8 fL (80-94); Mean Platelet Vol. 12.9 fl (6.2-12.0); Monocyte% 10.2 % (0-10); NRBC Flagged by Analyzer 0.6 % (0-5); Neutrophil # 3.07 X10^3/uL (2.7-7.7); Platelet Count 124 K/mm3 (150-450); RBC Distribution Width CV 16.4 % (11.6-14.6); RBC Distribution Width SD 60.1 fl (35.1-43.9); Red Blood Count 3.12 M/mm3 (4.6-6.2); White Blood Count 4.9 K/mm3 (4.4-11.0)
[2023-12-25 13:07] LABS: ALB/GLOB Ratio 0.8 RATIO (0.9-2.4); AST(SGOT) 17 U/L (15-37); Alanine Aminotransfer ALT/SGPT 15 U/L (16-61); Albumin, Serum 3.3 g/dL (3.2-5.0); Alkaline Phosphatase 52 U/L (45-117); Anion Gap 6 (5-15); BUN 18 mg/dL (7-18); BUN/Creat Ratio 13.6 RATIO (10-20); Calcium,Total 9.6 mg/dL (8.5-10.1); Chloride 106 mmol/L (98-107); Creatinine, Serum 1.32 mg/dL (0.70-1.30); EST Glomerular Filtration Rate 56 mL/min (>60); Est Glom Filt Rate - Afr Amer 67 mL/min (>60); Glucose 156 mg/dL (74-106); Potassium 3.6 mmol/L (3.5-5.1); Protein, Total 7.3 g/dL (6.4-8.2); Sodium Level 138 mmol/L (136-145)
== END | disposition home or self-care (01) ==
LOC: MTLAB 09:20
PROVIDERS: PCP Family Medicine; Referring Provider Internal Medicine Rheumatology; Visit Provider Internal Medicine Rheumatology
DX: M06.00 Rheumatoid arthritis without rheumatoid factor, unspecified site (principal); M79.7 Fibromyalgia; Z79.899 Other long term (current) drug therapy
CPT/HCPCS: 36415; 80053; 85025